=== PATIENT | female | born 1970 | race Caucasian/White ===

== ENCOUNTER → 2019-07-25 11:00 | Outpatient (BNVA) | payer OTHER, SELFPAY | PROVIDERS: Family Provider Family Medicine; PCP Family Medicine; Visit Provider Emergency Medicine | DX: J18.9 Pneumonia, unspecified organism (principal); M79.7 Fibromyalgia; E03.9 Hypothyroidism, unspecified; J45.909 Unspecified asthma, uncomplicated; L40.9 Psoriasis, unspecified; J45.21 Mild intermittent asthma with (acute) exacerbation; J06.9 Acute upper respiratory infection, unspecified | CPT/HCPCS: 87070; 87880 ==

== ENCOUNTER → 2019-10-14 16:18 | Outpatient (BNVA) | payer OTHER, SELFPAY | PROVIDERS: Family Provider Family Medicine; PCP Family Medicine; Visit Provider Family Medicine | DX: E03.9 Hypothyroidism, unspecified (principal); R31.9 Hematuria, unspecified; J30.9 Allergic rhinitis, unspecified; R31.21 Asymptomatic microscopic hematuria; J45.20 Mild intermittent asthma, uncomplicated; J30.2 Other seasonal allergic rhinitis; I10 Essential (primary) hypertension | CPT/HCPCS: 81001; 84439; 84443; 84481 ==

== ENCOUNTER → 2019-10-15 10:47 | Outpatient (BNVA) | payer OTHER, SELFPAY | PROVIDERS: Family Provider Family Medicine; PCP Family Medicine; Visit Provider Family Medicine | DX: E03.9 Hypothyroidism, unspecified (principal); R31.9 Hematuria, unspecified; J30.9 Allergic rhinitis, unspecified; R31.21 Asymptomatic microscopic hematuria; J45.20 Mild intermittent asthma, uncomplicated; J30.2 Other seasonal allergic rhinitis; I10 Essential (primary) hypertension | CPT/HCPCS: 80048 ==

== ENCOUNTER → 2019-10-24 16:05 | Outpatient (BNVA) | payer OTHER, SELFPAY | PROVIDERS: Family Provider Family Medicine; PCP Family Medicine; Visit Provider Counselor Professional | DX: F43.12 Post-traumatic stress disorder, chronic (principal); F33.1 Major depressive disorder, recurrent, moderate | CPT/HCPCS: 90834 ==

== ENCOUNTER → 2020-01-30 12:31 | Outpatient (BNVA) | payer OTHER, SELFPAY ==
[2019-08-08 10:48] VITALS: BP 173/106; BMI 45.3
== END ==
PROVIDERS: Family Provider Family Medicine; PCP Family Medicine; Visit Provider Anesthesiology
DX: M79.7 Fibromyalgia (principal); F17.210 Nicotine dependence, cigarettes, uncomplicated; Z79.891 Long term (current) use of opiate analgesic; Z71.6 Tobacco abuse counseling
CPT/HCPCS: 99214

== ENCOUNTER → 2020-04-23 12:31 | Outpatient (BNVA) | payer OTHER, SELFPAY ==
[2019-08-08 10:48] VITALS: BP 173/106; BMI 45.3
== END ==
PROVIDERS: Family Provider Family Medicine; PCP Family Medicine; Visit Provider Nurse Practitioner
DX: M79.7 Fibromyalgia (principal); F17.210 Nicotine dependence, cigarettes, uncomplicated; Z79.891 Long term (current) use of opiate analgesic; Z71.6 Tobacco abuse counseling
CPT/HCPCS: 99214

== ENCOUNTER → 2020-05-21 12:38 | Outpatient (BNVA) | payer OTHER, SELFPAY ==
[2019-08-08 10:48] VITALS: BP 173/106; BMI 45.3
== END ==
PROVIDERS: Family Provider Family Medicine; PCP Family Medicine; Visit Provider Anesthesiology
DX: M79.7 Fibromyalgia (principal); F17.210 Nicotine dependence, cigarettes, uncomplicated; Z79.891 Long term (current) use of opiate analgesic; Z71.6 Tobacco abuse counseling
CPT/HCPCS: 99214

== ENCOUNTER → 2020-07-07 15:09 | Outpatient (BNVA) | payer OTHER, SELFPAY ==
[2019-08-08 10:48] VITALS: BP 173/106; BMI 45.3
== END ==
PROVIDERS: Family Provider Family Medicine; PCP Family Medicine; Visit Provider Family Medicine
DX: E03.9 Hypothyroidism, unspecified (principal); R53.83 Other fatigue; I10 Essential (primary) hypertension; N64.4 Mastodynia
CPT/HCPCS: 80053; 80061; 82607; 82652; 84439; 84443; 84481; 85025

== ENCOUNTER 2020-08-17 14:02 | Outpatient (CLI) | payer OTHER, SELFPAY ==
[2019-08-08 10:48] VITALS: BP 173/106; BMI 45.3
--- NOTE | 2020-08-17 14:30 | MM_ITS ---
WS: [id number] BILATERAL DIGITAL DIAGNOSTIC MAMMOGRAM MAMMOGRAPHY WITH CAD CLINICAL INFORMATION: N64.4 - Mastodynia COMPARISON: September 14, 2016 TECHNIQUE: Bilateral CC, MLO, and ML views. FINDINGS: Scattered fibroglandular densities bilaterally. Focal asymmetric density in the right subareolar eyad on slightly more prominent compared to September 14, 2016. Ultrasound is pending. Left breast is unremarkable and unchanged. ULTRASOUND BREAST RIGHT TECHNIQUE: Ultrasound right breast focused area of concern. CLINICAL INFORMATION: N64.4 - Mastodynia COMPARISON: None. FINDINGS: Ultrasound right breast at the nipple. A few incidental dilated ducts. No visualized intraductal lesi on or suspicious lesions to target for biopsy. MM/[place] [id number] IMPRESSION: BI-RADS: 2-Benign FOLLOW UP: 1 Year Follow-up Recommend return to annual screening mammography.
--- NOTE | 2020-08-17 15:00 | US_ITS ---
WS: [id number] BILATERAL DIGITAL DIAGNOSTIC MAMMOGRAM MAMMOGRAPHY WITH CAD CLINICAL INFORMATION: N64.4 - Mastodynia COMPARISON: September 14, 2016 TECHNIQUE: Bilateral CC, MLO, and ML views. FINDINGS: Scattered fibroglandular densities bilaterally. Focal asymmetric density in the right subareolar eyad on slightly more prominent compared to September 14, 2016. Ultrasound is pending. Left breast is unremarkable and unchanged. ULTRASOUND BREAST RIGHT TECHNIQUE: Ultrasound right breast focused area of concern. CLINICAL INFORMATION: N64.4 - Mastodynia COMPARISON: None. FINDINGS: Ultrasound right breast at the nipple. A few incidental dilated ducts. No visualized intraductal lesi on or suspicious lesions to target for biopsy. US/US breast RT limited* [id number] IMPRESSION: BI-RADS: 2-Benign FOLLOW UP: 1 Year Follow-up Recommend return to annual screening mammography.
== END 2020-08-17 14:03 | disposition home or self-care (01) ==
LOC: RADSHAW 14:05
PROVIDERS: Family Provider Family Medicine; PCP Family Medicine; Visit Provider Family Medicine
DX: N64.4 Mastodynia (principal)
CPT/HCPCS: 76642; 77066

== ENCOUNTER → 2020-08-21 12:59 | Outpatient (BNVA) | payer OTHER, SELFPAY ==
[2019-08-08 10:48] VITALS: BP 173/106; BMI 45.3
== END ==
PROVIDERS: Family Provider Family Medicine; PCP Family Medicine; Visit Provider Anesthesiology
DX: M79.7 Fibromyalgia (principal); F17.210 Nicotine dependence, cigarettes, uncomplicated; Z71.6 Tobacco abuse counseling; Z79.891 Long term (current) use of opiate analgesic
CPT/HCPCS: 99213; 99214

== ENCOUNTER 2020-09-12 21:07 | Emergency (ER) | payer OTHER, SELFPAY ==
[2020-08-21 14:01] VITALS: BP 173/106; BMI 45.3
[2020-09-12 21:15] VITALS: BP 147/87; PULSE 95; RESP 18; TEMP 36.7; O2SAT 97; BMI 48.4
--- NOTE | 2020-09-12 21:20 | XRR_ITS ---
PROCEDURE INFORMATION: Exam: XR Chest, 1 View Exam date and time: 09/12/2020 9:57 PM Age: 50 years old Clinical indication: Chest pain; Additional info: Cp TECHNIQUE: Imaging protocol: XR of the chest Views: 1 view. COMPARISON: CT chest w con* [id number] 09/14/2016 12:26 PM FINDINGS: Lungs: Unremarkable. No consolidation. Pleural spaces: Unremarkable. No pleural effusion. No pneumothorax. Heart/Mediastinum: Unremarkable. No cardiomegaly. Bones/joints: Unremarkable. XR/XR chest 1V portable [id number] IMPRESSION: No acute findings.
[2020-09-12 21:45] LABS: Basophils # 0.1 10^3/uL (0.0-0.1); Basophils % 0.6 %; Eosinophils # 0.1 10^3/uL (0.0-0.8); Hematocrit 44.5 % (37.0-47.0); Hemoglobin 14.1 g/dL (11.5-15.3); Lymphocytes # 1.5 10^3/uL (0.8-4.8); Mean Corpuscular HGB Conc 31.7 g/dL (30.0-36.0); Mean Corpuscular Hemoglobin 29.3 pg (28.0-34.0); Mean Corpuscular Volume 92.3 fL (81-99); Mean Platelet Volume 10.9 fL (7.4-10.4); Monocytes # 0.4 10^3/uL (0.2-0.9); Monocytes % 4.4 %; Neutrophils # 6.28 10^3/uL (1.8-7.7); Neutrophils % 75.9 %; Nucleated Red Blood Cells % 0 %; Platelet Count 167 10^3/cmm (130-400); Red Blood Count 4.82 10^6/uL (4.1-5.3); Red Cell Distribution Width 12.4 % (12.1-15.1); White Blood Count 8.3 10^3/uL (4.0-10.0)
[2020-09-12 22:01] LABS: D Dimer 0.35 ug/mIFEU (0-0.59)
[2020-09-12 22:09] LABS: Troponin(5th) Baseline 6 ng/L (0-10)
[2020-09-12 22:18] LABS: Alanine Aminotransferase 13 U/L (0-33); Alkaline Phosphatase 91 IU/L (35-105); Aspartate Amino Transferase 14 U/L (0-32); Blood Urea Nitrogen 12 mg/dL (6-20); Calcium 8.4 mg/dL (8.5-10.5); Carbon Dioxide 26 mmol/L (22-29); Chloride 100 mmol/L (98-107); Globulin 3.3 g/dL (1.3-4.6); Glomerular Filtration Rate 75.3 mL/min (90-130); Glucose 122 mg/dL (65-115); NT Pro B Type Natriuretic Pept 33 pg/mL (0-125); Osmolality Calculated 287 mOsm/kg (285-295); Sodium 138 mmol/L (136-145); Total Bilirubin 0.2 mg/dL (0.15-1.2); Total Protein 7.3 g/dL (6.6-8.7)
[2020-09-12 22:19] LABS: Anion Gap 16.1 (5-19); Potassium 4.1 mmol/L (3.5-5.1)
[2020-09-12 22:38] VITALS: BP 143/93; PULSE 82; RESP 17; O2SAT 97
[2020-09-12 23:15] VITALS: BP 137/95; PULSE 81; RESP 17; O2SAT 97
--- NOTE | 2020-09-12 23:20 | ECG_ITS ---
[facility] [place] [facility] Date: 2020-09-12 Pat Name: Charlee Anderson Department: Room: Gender: Female Chief Inspector: : 1970 Requested By: Giancarlo Akhtar Order Number: [id number] Rossana MD: Annia Cohen M.D. Measurements Intervals Parker Rate: 77 P: 40 LA: 176 QRS: -6 QRSD: 93 T: 64 QT: 368 QTc: 416 Interpretive Statements SINUS RHYTHM LOW QRS VOLTAGE IN PRECORDIAL LEADS [QRS DEFLECTION < 1.0 mV IN CHEST LEADS] No previous ECG available for comparison Electronically Signed On 09-13-2020 18:40:06 YARDER OPERATOR by Annia Cohen M.D. [email or web address] ([email or web address] [email or web address] va medical centerCIVICOohiohealth dublin methodist hospitalViClone/store/OM/[id number]/[id number]
--- NOTE | 2020-09-12 23:34 | PC.NURSE ---
EKG done at 2330 and shown to ER doctor
[2020-09-13 00:05] VITALS: BP 141/111; PULSE 84; RESP 17; O2SAT 96
[2020-09-13 00:34] LABS: Troponin 5 2HR Delta 0 ABS# (0-10)
[2020-09-13] MEDS: ondansetron 2 mg/ML SDV 2 mL 4 MG IVP (01:26)
[2020-09-13 01:28] VITALS: BP 150/96; PULSE 88; RESP 15; O2SAT 97
[2020-09-13 01:29] VITALS: BP 158/95; PULSE 90; RESP 17; O2SAT 97
[2020-09-13 02:48] LABS: HIV 1 & 2 Antibody Non-Reactive (Non-Reactiv); HIV 1 & 2 Antigen Non-Reactive (Non-Reactiv)
[2020-09-13 03:00] LABS: Hepatitis A Antibody IgM Non-Reactive (Nonreactive); Hepatitis B Core AB, Total Non-Reactive (Nonreactive); Hepatitis B Surface AB 3.5 (0-8.5); Hepatitis B Surface Antigen Non-Reactive (Nonreactive); Hepatitis C Virus Antibody Non-Reactive (Nonreactive)
--- NOTE | 2020-09-13 03:38 | ED_ITS ---
HPI - Chest Pain General: Chief Complaint: Chest Pain Stated Complaint: CP Time Seen by Provider: 09/12/20 21:19 History of Present Illness: HPI narrative: 50-year-old female who states she has been under a lot of stress, presents with chest pain. She has had pain for several hours that did not go away. Does not seem to be worse with breathing. He states it is more of a butterfly feeling in her chest and pain. No nausea or vomiting. No fever or cough. No increased swelling. MD complaint: chest discomfort Onset (ago): hour(s) Timing of current episode: constant Onset: during rest Pain location: substernal Severity: moderate Quality: fullness and other Relieving factors: nothing Exacerbating factors: nothing Associated symptoms: Reports dyspnea and palpitations; Deny abdominal pain, fever(s), leg edema or vomiting Review of Systems Const: Denies: fever(s) Eyes: Denies: change in vision Card: Reports: chest pain, palpitations, lightheadedness and dyspnea on exertion Resp: Reports: dyspnea; Denies: productive cough, non-productive cough or wheezing GI: Denies: abdominal pain or vomiting Neuro: Denies: dizziness PFSH ED PFSH: Medical History Anxiety disorder Asthma, mild intermittent, well-controlled Encounter for long-term opiate analgesic use Fibromyalgia Hematuria Hypertension Hypothyroidism Hx allergy to all thyroid medication but has been through desensitization of levothyroxine. Major depressive disorder, recurrent, moderate Mild intermittent asthma with acute exacerbation Opioid contract exists Post-traumatic stress disorder, chronic Seasonal allergies Smoker Surgical History H/O thyroidectomy Family History Mother Cancer Family/Other Heart disease Social History Smoking and tobacco status: current every day smoker cigarettes [ Other cigarette details: 1 CIGS DAILY ] Alcohol intake: current Alcohol intake frequency: holidays/special occasions only Desire information about alcohol rehabilitation?: No History of recent travel: No Physical Exam Const: GENERAL APPEARANCE: well developed and anxious ORIENTATION/CONSCIOUSNESS: Yes oriented to person, Yes oriented to place and Yes oriented to time HENMT: COMMON NORMALS: normocephalic, external ears normal and Normal external nose present HEAD & SCALP: normocephalic FACE & SINUS: normal facial exam NOSE: Normal external nose present and No nasal discharge present EXTERNAL EAR: Yes external ears normal Eye: COMMON NORMALS: Equal, round and reactive pupils present, EOMs intact bilaterally and conjunctivae normal EYELID: eyelids normal CONJUNCTIVA: Yes conjunctivae normal PUPIL: Yes Equal, round and reactive pupils present Neck/C-Spine: GENERAL: No tracheal deviation Chest: COMMONS NORMALS: normal inspection of the chest CHEST: No tenderness Resp: COMMON NORMALS: clear to auscultation bilaterally EFFORT & INSPECTION: No tachypneic, No respiratory distress, No retractions, No uses accessory muscles and No tracheal deviation AUSCULTATION: clear to auscultation bilaterally, no rhonchi, no wheezes and lung sounds not diminished Cardio: COMMON NORMALS: regular rate and regular rhythm RATE: regular rate RHYTHM: regular rhythm HEART SOUNDS: no murmurs PERIPHERAL PULSES: radial pulses present GI: INSPECTION: No abdominal distension AUSCULTATION: No Hyperactive bowel sounds present and No Hypoactive bowel sounds present PALPATION: No Guarding due to palpation present (GI) and No Rigid due to palpation PERCUSSION: no dullness to percussion and no tympanic to percussion Neuro: SENSORIUM/ORIENTATION: Yes oriented to person, Yes oriented to place and Yes oriented to time Psych: COMMON NORMALS: mental status grossly normal Skin: COMMON NORMALS: no rashes or lesions noted GENERAL SKIN EXAM: no rashes or lesions noted Course Vital Signs: Vital signs: Vital Signs Temperature 98.1 F 09/12/20 21:15 Pulse Rate 90 09/13/20 01:29 Respiratory Rate 17 09/13/20 01:29 Blood Pressure 158/95 09/13/20 01:29 Pulse Oximetry 97 09/13/20 01:29 MDM - Chest Pain MDM Narrative: Medical decision making narrative: 50-year-old female, who is anxious on exam, presents with palpitations and chest discomfort. Is improved on exam. Her EKG shows a sinus rhythm with no ST changes. Her troponin is negative. Her hemoglobin is 14. White blood cell count 8.3. Her chest x-ray shows no acute findings. She was improved on exam. This may be anxiousness/anxiety. She is written a prescription for lorazepam to use as needed. She will follow-up with her physician. Lab Data: Labs: Lab Results 09/12/20 09/12/20 09/12/20 Range/Units 21:40 21:40 21:40 WBC 8.3 (4.0-10.0) 10^3/ uL RBC 4.82 (4.1-5.3) 10^6/u L Hgb 14.1 (11.5-15.3) g/dL Hct 44.5 (37.0-47.0) % MCV 92.3 (81-99) fL MCH 29.3 (28.0-34.0) pg MCHC 31.7 (30.0-36.0) g/dL RDW 12.4 (12.1-15.1) % Plt Count 167 (130-400) 10^3/c mm MPV 10.9 H (7.4-10.4) fL Neut % (Auto) 75.9 % Lymph % (Auto) 18.0 % [place] % (Auto) 4.4 % Eos % (Auto) 1.0 % Baso % (Auto) 0.6 % Neut # (Auto) 6.28 (1.8-7.7) 10^3/u L Lymph # (Auto) 1.5 (0.8-4.8) 10^3/u L [place] # (Auto) 0.4 (0.2-0.9) 10^3/u L Eos # (Auto) 0.1 (0.0-0.8) 10^3/u L Baso # (Auto) 0.1 (0.0-0.1) 10^3/u L Nucleated RBC % (a uto) 0 % Nucleated RBCs # 0.0 /100WBC D-Dimer 0.35 (0-0.59) ug/mIFE U Sodium 138 (136-145) mmol/L Potassium 4.1 (3.5-5.1) mmol/L Chloride 100 (98-107) mmol/L Carbon Dioxide 26 (22-29) mmol/L Anion Gap 16.1 (5-19) BUN 12 (6-20) mg/dL Creatinine 0.8 (0.5-0.9) mg/dL GFR Calculation 75.3 L (90-130) mL/min Glucose 122 H (65-115) mg/dL Calculated Osmolal ity 287 (285-295) mOsm/k g Calcium 8.4 L (8.5-10.5) mg/dL Total Bilirubin 0.2 (0.15-1.2) mg/dL AST 14 (0-32) U/L ALT 13 (0-33) U/L Alkaline Phosphata se 91 (35-105) IU/L Troponin T Baselin e (0-10) ng/L Troponin T 120 Min ak chin (0-10) ng/L Delta Troponin T (0-10) ABS# NT-Pro-B Natriuret Pep 33 (0-125) pg/mL Total Protein 7.3 (6.6-8.7) g/dL Albumin 4.0 (3.5-5.2) g/dL Globulin 3.3 (1.3-4.6) g/dL Hepatitis A IgM Ab (Nonreactive) Hep Bs Antigen (Nonreactive) Hep Bs Antibody (0-8.5) Hep B Core Total A b (Nonreactive) Hepatitis C Antibo dy (Nonreactive) HIV 1&2 Ab & HIV 1 Ag (Non-Reactiv) HIV 1&2 Antibody (Non-Reactiv) 09/12/20 09/12/20 09/13/20 Range/Units 21:40 23:40 01:54 WBC (4.0-10.0) 10^3/ uL RBC (4.1-5.3) 10^6/u L Hgb (11.5-15.3) g/dL Hct (37.0-47.0) % MCV (81-99) fL MCH (28.0-34.0) pg MCHC (30.0-36.0) g/dL RDW (12.1-15.1) % Plt Count (130-400) 10^3/c mm MPV (7.4-10.4) fL Neut % (Auto) % Lymph % (Auto) % [place] % (Auto) % Eos % (Auto) % Baso % (Auto) % Neut # (Auto) (1.8-7.7) 10^3/u L Lymph # (Auto) (0.8-4.8) 10^3/u L [place] # (Auto) (0.2-0.9) 10^3/u L Eos # (Auto) (0.0-0.8) 10^3/u L Baso # (Auto) (0.0-0.1) 10^3/u L Nucleated RBC % (a uto) % Nucleated RBCs # /100WBC D-Dimer (0-0.59) ug/mIFE U Sodium (136-145) mmol/L Potassium (3.5-5.1) mmol/L Chloride (98-107) mmol/L Carbon Dioxide (22-29) mmol/L Anion Gap (5-19) BUN (6-20) mg/dL Creatinine (0.5-0.9) mg/dL GFR Calculation (90-130) mL/min Glucose (65-115) mg/dL Calculated Osmolal ity (285-295) mOsm/k g Calcium (8.5-10.5) mg/dL Total Bilirubin (0.15-1.2) mg/dL AST (0-32) U/L ALT (0-33) U/L Alkaline Phosphata se (35-105) IU/L Troponin T Baselin e 6 (0-10) ng/L Troponin T 120 Min ak chin 6.00 (0-10) ng/L Delta Troponin T 0 (0-10) ABS# NT-Pro-B Natriuret Pep (0-125) pg/mL Total Protein (6.6-8.7) g/dL Albumin (3.5-5.2) g/dL Globulin (1.3-4.6) g/dL Hepatitis A IgM Ab Non-reactive (Nonreactive) Hep Bs Antigen Non-reactive (Nonreactive) Hep Bs Antibody 3.5 (0-8.5) Hep B Core Total A b Non-reactive (Nonreactive) Hepatitis C Antibo dy Non-reactive (Nonreactive) HIV 1&2 Ab & HIV 1 Ag (Non-Reactiv) HIV 1&2 Antibody (Non-Reactiv) 09/13/20 Range/Units 01:54 WBC (4.0-10.0) 10^3/ uL RBC (4.1-5.3) 10^6/u L Hgb (11.5-15.3) g/dL Hct (37.0-47.0) % MCV (81-99) fL MCH (28.0-34.0) pg MCHC (30.0-36.0) g/dL RDW (12.1-15.1) % Plt Count (130-400) 10^3/c mm MPV (7.4-10.4) fL Neut % (Auto) % Lymph % (Auto) % [place] % (Auto) % Eos % (Auto) % Baso % (Auto) % Neut # (Auto) (1.8-7.7) 10^3/u L Lymph # (Auto) (0.8-4.8) 10^3/u L [place] # (Auto) (0.2-0.9) 10^3/u L Eos # (Auto) (0.0-0.8) 10^3/u L Baso # (Auto) (0.0-0.1) 10^3/u L Nucleated RBC % (a uto) % Nucleated RBCs # /100WBC D-Dimer (0-0.59) ug/mIFE U Sodium (136-145) mmol/L Potassium (3.5-5.1) mmol/L Chloride (98-107) mmol/L Carbon Dioxide (22-29) mmol/L Anion Gap (5-19) BUN (6-20) mg/dL Creatinine (0.5-0.9) mg/dL GFR Calculation (90-130) mL/min Glucose (65-115) mg/dL Calculated Osmolal ity (285-295) mOsm/k g Calcium (8.5-10.5) mg/dL Total Bilirubin (0.15-1.2) mg/dL AST (0-32) U/L ALT (0-33) U/L Alkaline Phosphata se (35-105) IU/L Troponin T Baselin e (0-10) ng/L Troponin T 120 Min ak chin (0-10) ng/L Delta Troponin T (0-10) ABS# NT-Pro-B Natriuret Pep (0-125) pg/mL Total Protein (6.6-8.7) g/dL Albumin (3.5-5.2) g/dL Globulin (1.3-4.6) g/dL Hepatitis A IgM Ab (Nonreactive) Hep Bs Antigen (Nonreactive) Hep Bs Antibody (0-8.5) Hep B Core Total A b (Nonreactive) Hepatitis C Antibo dy (Nonreactive) HIV 1&2 Ab & HIV 1 Ag Non-reactive (Non-Reactiv) HIV 1&2 Antibody Non-reactive (Non-Reactiv) Discharge Plan Discharge Patient Disposition: Home Clinical Impression: Chest pain Qualifiers: Chest pain type: unspecified Qualified Code(s): R07.9 - Chest pain, unspecified Condition: Stable Prescriptions: New lorazepam 1 mg tablet 0.5 mg sublingual BID PRN (Reason: anxiety) Qty: 10 RF: 0 No Action albuterol sulfate 2.5 mg /3 mL (0.083 %) solution for nebulization 2.5 mg INHALATION Q4H PRNRF: 0 acetaminophen [Tylenol Extra Strength] 500 mg tablet 1,500 mg PO .COMPLEX PRNRF: 0 albuterol sulfate 90 mcg/actuation HFA aerosol inhaler 2 puff INHALATION Q6H PRN (Reason: shortness of breath or wheezing) Qty: 8.5 RF: 0 duloxetine [Cymbalta] 60 mg capsule,delayed release(DR/EC) 60 mg PO DAILY Qty: 30 RF: 2 hydroxyzine pamoate 25 mg capsule 25 mg PO TID PRN (Reason: itching or anxiety) Qty: 90 RF: 0 albuterol sulfate [Ventolin HFA] 90 mcg/actuation HFA aerosol inhaler See Rx Instructions INHALATION .COMPLEX 30 Days Qty: 18 RF: 5 tramadol 50 mg tablet 100 mg PO QID PRN (Reason: pain) 30 Days Qty: 240 RF: 2 gabapentin 800 mg tablet 800 mg PO TID Qty: 90 RF: 2 triamcinolone acetonide 0.1 % cream 1 applic topical BID Qty: 28.4 RF: 0 ketotifen fumarate 0.025 % (0.035 %) drops 1 drp ophthalmic (eye) BID PRN (Reason: allergy symptoms) Qty: 5 RF: 0 levothyroxine [Euthyrox] 175 mcg tablet 175 mcg PO DAILY 90 Days Qty: 90 RF: 3 lamotrigine [Lamictal] 150 mg tablet 150 mg PO DAILY Qty: 30 RF: 3 Discharge Orders: Discharge ED (Routine); Ordered 09/13/20 Ordered By: Giancarlo Mae Referrals: Corazon Cardona MD [Primary Care Provider] - 4-7 days Patient Instructions: Chest Pain (ED), Anxiety (ED) Activity Restrictions/Additional Instructions: Return for repeated episodes of chest discomfort, fever, cough, shortness of breath, other concerning symptoms Coding Level of Care Code ED Twisting Press Operator for Michelle Parikh
== END 2020-09-13 01:54 | disposition home or self-care (01) ==
PROVIDERS: Emergency Provider Emergency Medicine; PCP Family Medicine
DX: R07.9 Chest pain, unspecified (principal); I10 Essential (primary) hypertension; F17.210 Nicotine dependence, cigarettes, uncomplicated
CPT/HCPCS: 71045; 80053; 83880; 84484; 85025; 85378; 86705; 86706; 86709; 86803; 87340; 87806; 93005; 96374; 99284; J2405

== ENCOUNTER → 2020-09-23 17:23 | Outpatient (BNVA) | payer OTHER, SELFPAY ==
[2020-08-21 14:01] VITALS: BP 173/106; BMI 45.3
== END ==
PROVIDERS: PCP Family Medicine; Visit Provider Family Medicine
DX: I10 Essential (primary) hypertension (principal); E03.9 Hypothyroidism, unspecified; G47.33 Obstructive sleep apnea (adult) (pediatric); E66.01 Morbid (severe) obesity due to excess calories; Z68.43 Body mass index [BMI] 50.0-59.9, adult; F17.200 Nicotine dependence, unspecified, uncomplicated
CPT/HCPCS: 80053; 80061; 84439; 84443; 84481

== ENCOUNTER 2020-10-12 20:00 | Outpatient (CLI) | payer OTHER, SELFPAY ==
[2020-08-21 14:01] VITALS: BP 173/106; BMI 45.3
== END 2020-10-12 20:01 | disposition home or self-care (01) ==
LOC: SLEEP 10-13 08:33
PROVIDERS: PCP Family Medicine; Visit Provider Family Medicine
DX: G47.33 Obstructive sleep apnea (adult) (pediatric) (principal)
CPT/HCPCS: 95811

== ENCOUNTER → 2020-11-20 09:32 | Outpatient (BNVA) | payer OTHER, SELFPAY ==
[2020-08-21 14:01] VITALS: BP 173/106; BMI 45.3
== END ==
PROVIDERS: PCP Family Medicine; Visit Provider Anesthesiology
DX: M79.7 Fibromyalgia (principal); Z79.891 Long term (current) use of opiate analgesic
CPT/HCPCS: 99213

== ENCOUNTER 2020-11-25 20:00 | Outpatient (CLI) | payer OTHER, SELFPAY ==
[2020-08-21 14:01] VITALS: BP 173/106; BMI 45.3
== END 2020-11-25 20:01 | disposition home or self-care (01) ==
LOC: SLEEP 11-26 09:40
PROVIDERS: PCP Family Medicine; Visit Provider Family Medicine
DX: G47.33 Obstructive sleep apnea (adult) (pediatric) (principal)
CPT/HCPCS: 95811

== ENCOUNTER → 2021-02-24 12:52 | Outpatient (BNVA) | payer OTHER, SELFPAY ==
[2020-08-21 14:01] VITALS: BP 173/106; BMI 45.3
== END ==
PROVIDERS: PCP Family Medicine; Visit Provider Nurse Practitioner
DX: G89.29 Other chronic pain (principal); M79.7 Fibromyalgia; M54.5 Low back pain; M54.2 Cervicalgia; M25.50 Pain in unspecified joint; F17.210 Nicotine dependence, cigarettes, uncomplicated; Z79.891 Long term (current) use of opiate analgesic
CPT/HCPCS: 99213; 99214

== ENCOUNTER 2021-02-24 13:50 | Outpatient (CLI) | payer OTHER, SELFPAY ==
[2021-02-24 13:13] VITALS: BP 173/106; BMI 45.3
--- NOTE | 2021-02-24 14:00 | XR_ITS ---
WS: [id number] Lumbar spine, 3 views, 02/24/2021 Clinical Data: M54.5 - Low back pain Comparison: None. Findings: No compression fractures or subluxation is seen. No disc space narrowing is seen. The transverse proc esses and SI joints are normal. There is minimal anterior osteophyte formation from L2 through L5. XR/XR lumbar spine 2-3V* [id number] Impression: Osteophytes from L2 through L5.
--- NOTE | 2021-02-24 14:00 | XR_ITS ---
WS: [id number] Cervical spine, 3 views, 02/24/2021 Clinical Data: M54.2 - Cervicalgia Comparison: None. Findings: No compression fractures are seen. There is degenerative disc narrowing at C4-C5 and C5-C6 with accompanying anterior osteophyte formation. There is loss of the normal lordotic curvature.. The re is no prevertebral soft tissue swelling. The odontoid is unremarkable. The soft tissues of the nec k and the lung apices are normal. There are clips in the anterior neck from probable thyroid surgery. XR/XR cervical spine 3V* [id number] Impression: Degenerative disc narrowing at C4-C5 and T5-C6 with accompanying anterior osteo phytes.
== END 2021-02-24 13:51 | disposition home or self-care (01) ==
LOC: RAD 13:57
PROVIDERS: PCP Family Medicine; Visit Provider Family Medicine
DX: M54.5 Low back pain (principal); M54.2 Cervicalgia; G89.29 Other chronic pain; M25.78 Osteophyte, vertebrae
CPT/HCPCS: 72040; 72100

== ENCOUNTER → 2021-03-17 15:51 | Outpatient (BNVA) | payer OTHER, SELFPAY ==
[2021-02-24 13:13] VITALS: BP 173/106; BMI 45.3
== END ==
PROVIDERS: PCP Family Medicine; Visit Provider Family Medicine
DX: E03.9 Hypothyroidism, unspecified (principal); K21.9 Gastro-esophageal reflux disease without esophagitis; I10 Essential (primary) hypertension; M54.2 Cervicalgia; G89.29 Other chronic pain; J45.20 Mild intermittent asthma, uncomplicated; F17.200 Nicotine dependence, unspecified, uncomplicated
CPT/HCPCS: 80048; 84439; 84443; 84481

== ENCOUNTER → 2021-05-20 14:05 | Outpatient (BNVA) | payer OTHER, SELFPAY | PROVIDERS: PCP Family Medicine; Visit Provider Anesthesiology | DX: G89.29 Other chronic pain (principal); M79.7 Fibromyalgia; M54.50 Low back pain, unspecified; M54.2 Cervicalgia; M79.604 Pain in right leg; M79.605 Pain in left leg; M79.601 Pain in right arm; M79.602 Pain in left arm; F17.200 Nicotine dependence, unspecified, uncomplicated; Z71.6 Tobacco abuse counseling; Z79.891 Long term (current) use of opiate analgesic | CPT/HCPCS: 99214 ==

== ENCOUNTER → 2021-07-13 14:19 | Outpatient (BNVA) | payer OTHER, SELFPAY ==
[2021-05-20 15:19] VITALS: BP 173/106; BMI 45.3
== END ==
PROVIDERS: PCP Family Medicine; Visit Provider Family Medicine
DX: M17.0 Bilateral primary osteoarthritis of knee (principal); N39.41 Urge incontinence; E03.9 Hypothyroidism, unspecified; I10 Essential (primary) hypertension; Z13.220 Encounter for screening for lipoid disorders; Z13.6 Encounter for screening for cardiovascular disorders; Z13.1 Encounter for screening for diabetes mellitus; R73.9 Hyperglycemia, unspecified
CPT/HCPCS: 73562; 80048; 80061; 81000; 83036; 84439; 84443; 84481

== ENCOUNTER 2021-08-24 06:00 | Outpatient (RCR) | payer OTHER, SELFPAY ==
[2021-05-20 15:19] VITALS: BP 173/106; BMI 45.3
== END 2021-09-20 23:59 | disposition home or self-care (01) ==
LOC: MPT 06:00
PROVIDERS: PCP Family Medicine; Referring Provider Family Medicine; Visit Provider Family Medicine
DX: N39.41 Urge incontinence (principal)
CPT/HCPCS: 97110; 97140; 97161; 97530

== ENCOUNTER → 2021-09-02 13:55 | Outpatient (BNVA) | payer OTHER, SELFPAY ==
[2021-05-20 15:19] VITALS: BP 173/106; BMI 45.3
== END ==
PROVIDERS: PCP Family Medicine; Visit Provider Anesthesiology
DX: G89.29 Other chronic pain (principal); M54.50 Low back pain, unspecified; M79.7 Fibromyalgia; M54.2 Cervicalgia; M17.0 Bilateral primary osteoarthritis of knee; F17.210 Nicotine dependence, cigarettes, uncomplicated; Z79.891 Long term (current) use of opiate analgesic
CPT/HCPCS: 99214

== ENCOUNTER 2021-09-21 06:00 | Outpatient (RCR) | payer OTHER, SELFPAY ==
[2021-05-20 15:19] VITALS: BP 173/106; BMI 45.3
== END 2021-10-21 23:59 | disposition home or self-care (01) ==
LOC: MPT 06:00
PROVIDERS: PCP Family Medicine; Referring Provider Family Medicine; Visit Provider Family Medicine
DX: N39.41 Urge incontinence (principal)
CPT/HCPCS: 97110; 97140; 97530

== ENCOUNTER → 2021-12-06 15:37 | Outpatient (BNVA) | payer OTHER, SELFPAY ==
[2021-05-20 15:19] VITALS: BP 173/106; BMI 45.3
== END ==
PROVIDERS: PCP Family Medicine; Visit Provider Family Medicine
DX: I10 Essential (primary) hypertension (principal); E03.9 Hypothyroidism, unspecified; E11.9 Type 2 diabetes mellitus without complications; J45.20 Mild intermittent asthma, uncomplicated; F33.1 Major depressive disorder, recurrent, moderate; J45.21 Mild intermittent asthma with (acute) exacerbation; G89.29 Other chronic pain; Z79.891 Long term (current) use of opiate analgesic; K21.9 Gastro-esophageal reflux disease without esophagitis
CPT/HCPCS: 80053; 83036; 84443; 85025

== ENCOUNTER → 2022-01-11 15:52 | Outpatient (BNVA) | payer OTHER, SELFPAY ==
[2021-05-20 15:19] VITALS: BP 173/106; BMI 45.3
== END ==
PROVIDERS: PCP Family Medicine; Visit Provider Family Medicine
DX: Z12.4 Encounter for screening for malignant neoplasm of cervix (principal); Z68.43 Body mass index [BMI] 50.0-59.9, adult; Z12.31 Encounter for screening mammogram for malignant neoplasm of breast
CPT/HCPCS: 87624

== ENCOUNTER 2022-02-24 13:12 | Outpatient (CLI) | payer OTHER, MEDICARE, SELFPAY ==
[2021-05-20 15:19] VITALS: BP 173/106; BMI 45.3
--- NOTE | 2022-02-24 13:24 | CT_ITS ---
WS: [id number] CT LUMBAR SPINE, noncontrast. HISTORY: VERTEBROGENIC LOW BACK PAIN TECHNIQUE: Contiguous 2.5 mm axial imaging are performed. Sagittal and coronal reformats are submitte d and reviewed. All CT scans at [facility] use at least one of these dose optimization techni ques: automated exposure control; mA and/or kV adjustment per patient size (includes targeted exams w here dose is matched to clinical indication); or iterative reconstruction. IV contrast: None DLP: 1837.40 mGy.cm COMPARISON: None available. Normal lumbar alignment with no loss of disc space height or vertebral body height. L1-2: Normal. L2-3: Shallow LEFT foraminal disc protrusion with no stenosis. L3-4: Normal. L4-5: Mild facet joint arthritis. No stenosis. Osteophyte from the RIGHT superior articular facet enc roaches into the RIGHT lateral thecal sac. L5-S1: Mild facet arthritis. Small amount of air in the SI joints. 7.8 mm calcification in the RIGHT abdomen. This appears to be associated with the RIGHT ureter and ca using a mild RIGHT renal obstruction. The entire kidney and ureter are not included on this examinati on. CT/CT lumbar spine wo con* [id number] IMPRESSION: 1. No significant central or foraminal stenosis. 2. 7.8 mm calcification within the RIGHT abdomen. This is probably within the proximal RIGHT ureter. Incomplete visualization of the kidney and ureter. Recom mend noncontrast follow-up CT abdomen and pelvis evaluation.
== END 2022-02-24 13:13 | disposition home or self-care (01) ==
LOC: RAD 13:14
PROVIDERS: PCP Family Medicine; Visit Provider Nurse Practitioner
DX: M54.51 Vertebrogenic low back pain (principal)
CPT/HCPCS: 72131

== ENCOUNTER 2022-02-28 14:33 | Outpatient (CLI) | payer OTHER, MEDICARE, MEDICAID, SELFPAY ==
[2021-05-20 15:19] VITALS: BP 173/106; BMI 45.3
--- NOTE | 2022-02-28 14:40 | MM_ITS ---
WS: [id number] BILATERAL 3D TOMOSYNTHESIS DIGITAL SCREENING MAMMOGRAPHY WITH CAD CLINICAL INFORMATION: Z12.39 - Encounter for other screening for malignant neop... HISTORY: Screening mammogram. Bilateral breast soreness COMPARISON: August 17, 2020 TECHNIQUE: Bilateral CC and MLO views. FINDINGS: Scattered fibroglandular densities bilaterally. No suspicious focal mass, asymmetry, calcifications, or architectural distortion. No evidence of malignancy. MM/[place] [id number] IMPRESSION: BI-RADS: 1-Negative FOLLOW UP: 1 Year Follow-up Recommend return to annual screening mammography.
== END 2022-02-28 14:34 | disposition home or self-care (01) ==
PROVIDERS: PCP Family Medicine; Visit Provider Family Medicine
DX: Z12.31 Encounter for screening mammogram for malignant neoplasm of breast (principal)
CPT/HCPCS: 77063; 77067

== ENCOUNTER → 2022-03-16 14:41 | Outpatient (BNVA) | payer OTHER, MEDICARE, SELFPAY ==
[2021-05-20 15:19] VITALS: BP 173/106; BMI 45.3
== END ==
PROVIDERS: PCP Family Medicine; Visit Provider Family Medicine
DX: M79.7 Fibromyalgia (principal); N20.0 Calculus of kidney; Z87.19 Personal history of other diseases of the digestive system; G89.29 Other chronic pain
CPT/HCPCS: 81000

== ENCOUNTER 2022-04-06 14:52 | Outpatient (CLI) | payer MEDICARE, MEDICAID, OTHER, SELFPAY ==
[2021-05-20 15:19] VITALS: BP 173/106; BMI 45.3
--- NOTE | 2022-04-06 15:02 | CT_ITS ---
WS: [id number] CT ABDOMEN PELVIS TECHNIQUE: Noncontrast CT of the abdomen and pelvis with coronal and sagittal reformatted images. CLINICAL INFORMATION: N20.0 - Calculus of kidney COMPARISON: None. DLP: 1260.[address] scans at [facility] use at least one of these dose optimization techniques: automated e xposure control; mA and/or kV adjustment per patient size (includes targeted exams where dose is matc hed to clinical indication); or iterative reconstruction. FINDINGS: Adrenal glands are normal. Obstructing calculus in the RIGHT proximal one third ureter yovani uring 4 mm. No significant hydronephrosis in the RIGHT kidney. No significant inflammatory stranding. Minimal dilatation renal pelvis. Distal RIGHT ureter is decompressed. No obstructing LEFT renal or ureteral calculi. A few pelvic phleboliths. Normal caliber abdominal aor ta. Fat-containing umbilical hernia. No evidence of high-grade small or large bowel obstruction. Norm al appendix in the RIGHT lower quadrant. No periaortic or pelvic lymphadenopathy. No inguinal lymphadenopathy. Large calcified gallbladder giselle culi. No gallbladder wall thickening or pericholecystic fluid. Largest calculus measures 2.2 CM. Hepa tomegaly. No intrahepatic biliary duct dilatation. Atrophic pancreas. Mild splenomegaly. Small esopha geal hiatal hernia. Lung bases are well aerated. Slight patchy opacity LEFT lower lobe may represent small amount of pneumonitis or fibrosis. LEFT ovarian cyst measuring 2.[address]/CT kidney stone [id number] IMPRESSION: 1. 4 mm calculus in the RIGHT proximal one third ureter. Recommend correlation for RIGHT flank pain. No significant hydronephrosis or perinephric stranding. Minimal dilatation RIGHT renal pelvis. 2. No obstructing LEFT renal or ureteral calculi. 3. Large gallbladder calculi. No gallbladder wall thickening or pericholecysti c fluid. 4. Tiny amount of fibrosis or slight infiltrate in the LEFT lower lobe posteri dennis. 5. Fat-containing umbilical hernia. 6. No other acute findings.
== END 2022-04-06 14:53 | disposition home or self-care (01) ==
PROVIDERS: PCP Family Medicine; Visit Provider Family Medicine
DX: N20.0 Calculus of kidney (principal)
CPT/HCPCS: 74176

== ENCOUNTER 2022-04-07 14:49 | Outpatient (CLI) | payer MEDICARE, MEDICAID, OTHER, SELFPAY ==
[2021-05-20 15:19] VITALS: BP 173/106; BMI 45.3
--- NOTE | 2022-04-07 14:54 | XR_ITS ---
WS: [id number] XR KUB [id number] REASON FOR EXAM: Kidney Stone FINDINGS: On the previous examination of 04/10/2019 there was a calculus within the right kidney. Currently no c alculus is identified in the right kidney. A calculus is identified overlying the right transverse pr ocess of L4. No other urinary tract calculi are identified. No other significant abnormality of the abdomen is identified. XR/XR KUB [id number] IMPRESSION: Presumed migration, of unknown chronicity, of a right intrarenal calculus to th e mid right ureter.
== END 2022-04-07 14:50 | disposition home or self-care (01) ==
LOC: RAD 14:50
PROVIDERS: PCP Family Medicine; Visit Provider Urology
DX: N20.1 Calculus of ureter (principal); F41.8 Other specified anxiety disorders; E66.01 Morbid (severe) obesity due to excess calories; I10 Essential (primary) hypertension; Z68.43 Body mass index [BMI] 50.0-59.9, adult
CPT/HCPCS: 74018; 99205

== ENCOUNTER 2022-04-13 05:42 | Day surgery (SDC) | payer MEDICARE, OTHER, SELFPAY ==
[2021-05-20 15:19] VITALS: BP 173/106; BMI 45.3
--- NOTE | 2022-04-12 13:21 | ANES.PREANE2 ---
Pre-Anesthetic Assessment Height/Weight: Height 1.7 m Weight 153.768 kg Preop Diagnosis: renal calculus Operation Date: 04/13/22 07:00 Proposed Procedures p CYSTOSCOPY RIGHT RETROGRADE URETEROSCOPY LASER STENT 34822 [id number] MODIFIER 26,N20.0(Not Applicable) - Shawn Hylton MD s Retrograde Pyelogram(Right) - MD latia Beard Ureteroscopy(Right) - MD latia Beard Laser Lithotripsy(Right) - MD latia Beard Ureteral Stent Placement(Right) - Shawn Hylton MD Familial anesthetic complications: PONV Was Beta Kelli taken within 24 hours: Yes Was Clonidine taken within 24 hours: N/A Social Tobacco and No alcohol Exam alert, oriented x 3, clear to auscultation bilaterally and regular rate & rhythm Airway Submandibular: within normal limits Cervical ROM: within normal limits Mallampati: Class II Dentition: full Pulmonary Asthma and Sleep Apnea (Not treated ) CV/HEM None reported Renal calculus Hepatic None reported GI Gastroesophageal Reflux Disease (Very poorly controlled ) Metabolic Morbid Obesity [facility] None reported Neuropsych None reported Anesthetic Plan ASA status: 3 Anesthesia: Anesthesia Evaluation and General Other: We discussed risk and benefits of general anesthesia including PONV, sore throat (sometimes severe), corneal abrasion, positioning and peripheral nerve injuries, life threatening allergic reaction, post operative ICU admission requiring prolonged intubation, aspiration, stroke, heart attack, , and rare incidences of recall. Patient consents to proceed with general anesthesia. Plan RSI, GETa Risk of > 500 ml blood loss (7ml/kg in children): No Medications/Allergies Home Medications Medication Instructions Recorded Confirmed Last Taken Type albuterol sulfate 2.5 mg inhalation Q4H PRN 07/25/19 04/12/22 Unknown History Shortness Of Breath levothyroxine 175 mcg tablet 175 mcg PO DAILY 90 days #90 tabs 12/06/21 04/12/22 Unknown Rx (Euthyrox) metoprolol succinate 100 mg 100 mg PO DAILY 90 days #90 tabs 12/06/21 04/12/22 Unknown Rx tablet,extended release 24 hr omeprazole 40 mg capsule,delayed 40 mg PO DAILY 90 days #90 caps 12/06/21 04/12/22 Unknown Rx release duloxetine 60 mg capsule,delayed 60 mg PO DAILY #30 caps 01/27/22 04/12/22 Unknown Rx release (Cymbalta) gabapentin 800 mg tablet 800 mg PO TID 30 days #90 tabs 03/16/22 04/12/22 Unknown Rx hydrocodone 7.5 mg-acetaminophen 2 tab PO Q6H PRN Pain 03/16/22 04/12/22 Unknown History 325 mg tablet albuterol sulfate 90 mcg/actuation 90 mcg inhalation DAILY 04/12/22 04/12/22 Unknown History aerosol inhaler (Ventolin HFA) nicotine 21 mg/24 hr daily 1 patch transdermal DAILY #28 ea 04/12/22 Unknown Rx transdermal patch risperidone 1 mg tablet (Risperdal) 1 mg PO BID 04/12/22 04/12/22 Unknown History Allergies Allergy/AdvReac Type Severity Reaction Status Date / Time trazodone Allergy Intermediate ALGY-Difficulty Verified 04/04/22 15:12 Swallowing levothyroxine Allergy she takes Verified 04/04/22 15:12 this daily but will cause a rash/itching morphine AdvReac nausea, Verified 04/04/22 15:12 vomiting PFSH Anesthesia Medical History Anxiety disorder Asthma, mild intermittent, well-controlled Encounter for long-term opiate analgesic use Encounter for tobacco use cessation counseling Fibromyalgia Hematuria Hypertension Hypothyroidism Hx allergy to all thyroid medication but has been through desensitization of levothyroxine. Major depressive disorder, recurrent, moderate Mild intermittent asthma with acute exacerbation Opioid contract exists Post-traumatic stress disorder, chronic Psychiatric care Seasonal allergies Smoker Surgical History H/O thyroidectomy Family History Mother Cancer Family/Other Heart disease Social History Smoking and tobacco status: current every day smoker cigarettes Packs smoked per day: 0.5 Alcohol intake: never Desire information about alcohol rehabilitation?: No Marital status: / Current occupational status: disabled History of recent travel: No Female Reproductive History Spontaneous abortions: No Data Anesthesia Cardiac Studies: No Data to Display
--- NOTE | 2022-04-12 13:27 | ECG_ITS ---
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 Measurements Intervals Harrison Rate: 67 P: 28 MT: 188 QRS: 0 QRSD: 99 T: 38 QT: 373 QTc: 396 Interpretive Statements SINUS RHYTHM WITH SINUS ARRHYTHMIA LOW QRS VOLTAGE IN PRECORDIAL LEADS [QRS DEFLECTION < 1.0 mV IN CHEST LEADS] ST DEVIATION AND MODERATE T-WAVE ABNORMALITY, CONSIDER ANTERIOR ISCHEMIA [-0.1+ mV T-WAVE IN V3/V4] Compared to ECG 09/12/2020 23:30:17 T-wave abnormality now present Possible ischemia now present Electronically Signed On 04-12-2022 20:49:04 CDT by Melodie Loza M.D. [id number]
[2022-04-13] VITALS (7 sets, daily range): BP systolic 106–135; BP diastolic 71–92; PULSE 56–71; RESP 14–22; TEMP 36.1–36.3; O2SAT 92–97
--- NOTE | 2022-04-13 | SCC_ITS ---
Procedure done: 1. Cystoscopy, RIGHT retrograde ureteropyelogram 2. Right ureteroscopy, laser lithotripsy, stent 107.4 seconds of fluoroscopic guidance, for a cumulative dose of 82.7 mGy, was provided to Dr. Hylton by the radiology department. C-arm images of the abdomen were saved for the patient's permanent record. [facility]
--- NOTE | 2022-04-13 04:20 | W.PM.OPSUD ---
Surgery/Procedure H&P Update DATE OF PROCEDURE: April 13, 2022 DATE H&P PERFORMED: 04/07/22 H&P UPDATE INFORMATION: I have reviewed H&P completed within last 30 days (Reviewed her films again.), I have examined patient prior to procedure, No changes to prior documentation and H&P is in [facility] [place] EMR on date indicated PREOP DIAGNOSIS: renal calculus PRIMARY INDICATION FOR PROCEDURE: Discussed again the possibility of severe inflammatory changes around the stone which may make it difficult to access the stone or even access the upper tract above the stone. Staged procedure, antegrade approach via interventional radiology all reviewed again with her and her family. PLANNED PROCEDURE: Operation Date: 04/13/22 07:00 Proposed Procedures p CYSTOSCOPY RIGHT RETROGRADE URETEROSCOPY LASER STENT [id number] MODIFIER 26,N20.0(Not Applicable) - Shawn Hylton MD s Retrograde Pyelogram(Right) - MD latia Beard Ureteroscopy(Right) - MD latia Beard Laser Lithotripsy(Right) - Shawn Hylton MD s Ureteral Stent Placement(Right) - Shawn Hylton MD
--- NOTE | 2022-04-13 05:52 | SC_ITS ---
WS: [id number] INTRAOPERATIVE TECHNIQUE: 7 Spot fluoroscopic images for intraoperative purposes. FLUOROSCOPY TIME: 107.4 seconds CLINICAL INFORMATION: Right proximal ureteral stone, ureteroscopy COMPARISON: CT April 06, 2022 FINDINGS: RIGHT ureteroscopy with contrast injection. Deployment of RIGHT double-J ureteral stent. SC/C-arm FL for Urology IMPRESSION: Images obtained for intraoperative purposes.
--- NOTE | 2022-04-13 06:35 | P.ANESUD_ITS ---
Pre-Anesthetic Update Pre-Anesthetic Assessment: Date of Surgery/Procedure: 04/13/22 Preop Yesenia gnosis: Refractory right proximal ureteral stone Proposed Procedure: Operation Date: 04/13/22 07:00 Proposed Procedures p CYSTOSCOPY RIGHT RETROGRADE URETEROSCOPY LASER STENT [id number] MODIFIER 26,N20.0(Not Applicable) - MD latia Beard Retrograde Pyelogram(Right) - MD latia Beard Ureteroscopy(Right) - MD latia Beard Laser Lithotripsy(Right) - MD latia Beard Ureteral Stent Placement(Right) - Shawn Hylton MD Any changes to Pre-Anesthetic Assessment?: No Last Intake: Intake Last Liquid Date 04/12/22 Last Liquid Time 21:00 Last Solid Date 04/12/22 Last Solid Time 20:00 Vitals: Temperature 97.3 F L 04/13/22 06:00 Temperature Source Temporal Artery S can 04/13/22 06:00 Pulse Rate 70 04/13/22 06:00 Respiratory Rate 17 04/13/22 06:00 Blood Pressure 122/92 04/13/22 06:00 Blood Pressure Gema n 102 04/13/22 06:00 Pulse Oximetry 97 04/13/22 06:00 Oxygen Delivery Me thod 04/13/22 06:08 Exam: Pre-Anes Outpt Exam: alert, oriented x 3, clear to auscultation bilaterally and regular rate & rhythm Cardiac Studies: No Data to Display
[2022-04-13] MEDS: metoclopramide 5 mg/mL SDV 2 mL 10 MG IVP (06:41)
[2022-04-13] MEDS: sodium chloride 0.9% 1,000 ML 30 ML IV (06:41)
[2022-04-13] MEDS: famotidine 20 mg/2 mL INJ IVP (06:43)
[2022-04-13] MEDS: scopolamine 1.5 Patch 1 PATCH TRANSDERMA (06:44)
[2022-04-13] MEDS: levofloxacin-dextrose 5 % 500 MG/100 ML PREMIX 100 MG IV (07:00)
[2022-04-13] MEDS: iohexol 300 mg/mL 50 mL Btl (OR ONLY) 10 ML XX (07:38)
--- NOTE | 2022-04-13 08:41 | P.OP_ITS ---
Operative Report Date of procedure: April 13, 2022 Pre-op diagnosis: Refractory right proximal ureteral stone Post-op diagnosis: Refractory right proximal ureteral stone Procedure done: 1. Cystoscopy, RIGHT retrograde ureteropyelogram 2. Right ureteroscopy, laser lithotripsy, stent Implants: 6 Macedonian by 30 cm double-pigtail stent without string Pathology: Stone fragments Surgeon: Concetta Estimated blood loss: Minimal Urine output: Not measured Complications: None Findings: Anesthesia: General Condition: Stable Disposition: PACU Intraoperative findings: * Stone in the expected position with some impaction. There was essentially a pocket in the ureter with some narrowing proximally and distally from inflammatory changes. * Stone was readily accessible with laser and completely fragmented both in the ureter and some of the migrated pieces in the renal pelvis. No significant fragments remained but should be difficult to pass * Stent left indwelling for healing of the inflamed area. Brief History: Charlee is a very pleasant 52-year-old white female recently diagnosed with a right proximal obstructing ureteral stone on lumbar CT scan. Follow-up imaging confirmed this. She was having intermittent right-sided renal colicky symptoms and ultimately elected for treatment of the stone. Endoscopic treatment was selected due to her large size which would attenuate the shockwave effectiveness. Procedure: After routine preoperative evaluation examination and obtaining of informed consent she was taken to the operating suite on 04/13/2022 where general anesthesia was administered without difficulty after appropriate timeout was performed, SCDs confirmed to be functioning, preoperative antibiotics administered, beta-wali protocol confirmed. Prepped and draped in the usual sterile fashion in dorsolithotomy position paying careful attention to avoiding pressure points. 21 Macedonian cystoscope with 30 degree lens was introduced into the urethra meatus and advanced into the bladder without difficulty. The bladder was inspected. There was no stone or other abnormality identified. An 8 Macedonian cone-tip catheter was intubated into the right ureteral orifice and a RIGHT RETROGRADE URETEROPYELOGRAM was performed showing normal course and caliber of the ureter distal to the stone. The stone was demonstrated as a filling defect with some narrowing proximally and distally. Contrast did migrate proximal to the stone and filled the collecting system which showed some mild dilation. No other stones were seen proximal to the stone. A flexible tip guidewire was then advanced up the ureter but could not easily be advanced beyond the stone. An opening ureteral catheter was advanced to just below the stone and a zip wire was then utilized which easily passed the stone curling in the upper pole calyx. The open-ended ureteral catheter was manipulated over the zip wire into the renal pelvis and the zip wire was removed. A routine flexible tip guidewire was then advanced through the open- ended ureteral catheter and the opening ureteral catheter removed. The wire was secured to the drapes as a safety wire. A 7 Macedonian offset semirigid ureteroscope was then advanced up the right ureter next to the guidewire and the stone was encountered in its expected position. As expected there was a lot of inflammation of the ureteral mucosa distal to the stone but the stone was readily visible. It did not appear to be walled off with membrane. A 365 thulium superpulse laser fiber was utilized to completely fragment the stone. Most of the byproduct of fragmentation was sand like sized material. There was a least 1 larger fragment the migrated into the renal pelvis and for that reason a flexible ureteroscope was selected. Prior to removal of the offset ureteroscope a guidewire was passed into the renal pelvis ureteroscope removed and a 38 cm ureteral access sheath was advanced over the working wire to below the level of the stone and the wire and inner sheath removed. Flexible ureteroscope was then easily advanced into the kidney. 2 moderate- sized fragments were identified. They were then treated with laser and were completely fragmented. Final inspection showed no significant fragments remaining. The ureteral access sheath was withdrawn onto the hub of the scope and the ureter was inspected as the scope was withdrawn. Other than the inflammatory changes around the area of the stone location the ureter was minimally traumatized from the procedure. The cystoscope was then backloaded over the safety wire and a 6 Macedonian by 28 cm double-pigtail stent was advanced over the guidewire through the cystoscope into appropriate position as confirmed via fluoroscopy and cystoscopy. There was a small amount of stone debris that was flushed out of the bladder and sent for pathologic evaluation. Bladder was drained and the procedure was completed. She tolerated procedure well without complications and was awakened in the operating room and returned to the recovery room in stable condition. PLANS: 1. Anticipate discharge from outpatient surgery 2. Follow-up with early in the second week of April for stent removal.
--- NOTE | 2022-04-13 15:07 | ANE.PACU2 ---
Inpatient post-anesthesia follow up: Airway intact: Yes Vital signs: Temperature 97.0 F Pulse Rate 60 Respiratory Rate 17 Blood Pressure 124/79 Pulse Oximetry 93 Oxygen Delivery Me thod Room Air Oxygen Flow Rate 6 Fraction of Inspir ed Oxygen Hydration adequate: Yes Nausea and vomiting: No Pain level: 1 Mental status: Baseline
== END 2022-04-13 09:49 | disposition home or self-care (01) ==
PROVIDERS: PCP Family Medicine; Visit Provider Urology
PROC: 0TJB8ZZ Inspection of Bladder, Via Natural or Artificial Opening Endoscopic (ICD-10-PCS; CPT 52000; principal; 2022-04-13 07:00)
PROC: (CPT 74420; 2022-04-13 07:00)
PROC: 0TJ98ZZ Inspection of Ureter, Via Natural or Artificial Opening Endoscopic (ICD-10-PCS; CPT 52351; 2022-04-13 07:00)
PROC: (CPT 52356; 2022-04-13 07:00)
PROC: (CPT 50605; 2022-04-13 07:00)
DX: N20.1 Calculus of ureter (principal); G47.30 Sleep apnea, unspecified; K21.9 Gastro-esophageal reflux disease without esophagitis; E66.01 Morbid (severe) obesity due to excess calories; Z68.43 Body mass index [BMI] 50.0-59.9, adult; F41.9 Anxiety disorder, unspecified; I10 Essential (primary) hypertension; E03.9 Hypothyroidism, unspecified; F17.210 Nicotine dependence, cigarettes, uncomplicated
CPT/HCPCS: 52356; 76000; 82365; 88300; 93005; C2625; J0330; J1100; J1956; J2370; J2405; J2704; J2710; J2765; J3010; J3490; J7030

== ENCOUNTER → 2022-04-18 14:47 | Outpatient (BNVA) | payer MEDICARE, MEDICAID, OTHER, SELFPAY ==
[2021-05-20 15:19] VITALS: BP 173/106; BMI 45.3
== END ==
PROVIDERS: PCP Family Medicine; Visit Provider Surgery
DX: K80.10 Calculus of gallbladder with chronic cholecystitis without obstruction (principal); R10.9 Unspecified abdominal pain; Z79.899 Other long term (current) drug therapy; K62.5 Hemorrhage of anus and rectum
CPT/HCPCS: 99203

== ENCOUNTER → 2022-04-21 10:30 | Outpatient (BNVA) | payer MEDICARE, OTHER, SELFPAY ==
[2021-05-20 15:19] VITALS: BP 173/106; BMI 45.3
== END ==
PROVIDERS: PCP Family Medicine; Visit Provider Urology
DX: N20.0 Calculus of kidney (principal); N20.1 Calculus of ureter; F41.8 Other specified anxiety disorders; E66.01 Morbid (severe) obesity due to excess calories; Z68.43 Body mass index [BMI] 50.0-59.9, adult; I10 Essential (primary) hypertension
CPT/HCPCS: 81003

== ENCOUNTER 2022-05-02 13:57 | Outpatient (CLI) | payer MEDICARE, OTHER, SELFPAY ==
[2021-05-20 15:19] VITALS: BP 173/106; BMI 45.3
--- NOTE | 2022-05-02 14:08 | XR_ITS ---
WS: [id number] KUB, AP view, 05/02/2022 Clinical Data: STONES Comparison: KUB, 04/07/2022 Findings: No abnormal intraabdominal masses or calcifications are seen. There is no dilatated small bowel or ev idence of obstruction. A right ureteral stent is in good position. The calculus which had been overlying the right L4 transv erse process is not seen XR/XR KUB [id number] Impression: Right ureteral stent.
== END 2022-05-02 13:58 | disposition home or self-care (01) ==
LOC: RAD 14:00
PROVIDERS: PCP Family Medicine; Visit Provider Urology
DX: N20.1 Calculus of ureter (principal); Z96.0 Presence of urogenital implants
CPT/HCPCS: 52310; 74018; 81003

== ENCOUNTER 2022-06-08 10:38 | Emergency (ER) | payer MEDICARE, OTHER, SELFPAY ==
[2021-05-20 15:19] VITALS: BP 173/106; BMI 45.3
[2022-06-08 10:42] VITALS: BP 185/100; PULSE 77; RESP 22; TEMP 36.4; O2SAT 94; BMI 54.0
[2022-06-08] MEDS: ipratropium-albuterol 3 mL Neb INHALATION (11:08)
[2022-06-08 11:10] VITALS: PULSE 61; RESP 22; O2SAT 96
[2022-06-08 11:14] VITALS: PULSE 59
--- NOTE | 2022-06-08 11:16 | XR_ITS ---
WS: [id number] Exam: XR chest 1V portable [id number] Date/Time of Exam: 06/08/2022 11:16 AM Reason For Exam: dyspnea/cough Comparison 09/12/2020. The lungs are clear and fully expanded. Normal cardiomediastinal silhouette. No pleural effusions. Tip ny structures are unremarkable. Surgical clips and sutures in the neck. XR/XR chest 1V portable [id number] IMPRESSION: 1. Negative chest. No change.
--- NOTE | 2022-06-08 11:23 | ED_ITS ---
HPI - SOB/Dyspnea General: Chief Complaint: Upper Respiratory Infection Stated Complaint: sob Time Seen by Provider: 06/08/22 10:43 Source: patient Mode of arrival: ambulatory History of Present Illness: HPI Narrative: 52-year-old female presents emergency room complaining of been sick for the last 2 days. Several other family members have been sick she has a history of asthma. She uses a nebulizer as needed her nebulizer has not been working so she has been able to use it is only been using an inhaler. She has noticed increasing difficulty breathing and wheezing some mildly productive cough. No vomiting no diarrhea. She is afebrile at the time of presentation. MD elicited complaint: shortness of breath and cough Pertinent past history: asthma Context: recent illness Timing: constant and progressively worsening Severity: moderate Exacerbating factors: exertion and coughing Relieving factors: rest and bronchodilators Known history of: asthma Associated symptoms: Reports chest congestion; Deny abdominal pain, chest pain, diaphoresis, dizziness, extremity pain, fever(s), hemoptysis, lightheadedness, myalgias, nausea, orthopnea, palp itations, paresthesias, polydipsia, polyuria, rash, sense of impending doom, syncope or vomiting Treatment prior to arrival: none Review of Systems Const: Denies: fever(s), chills, fatigue, malaise or diaphoresis ENMT: Denies: throat pain, ear or mastoid pain, nasal discharge or nasal congestion Card: Denies: chest pain, palpitations, lightheadedness, syncope or orthopnea Resp: Reports: chest congestion; Denies: hemoptysis GI: Denies: abdominal pain, nausea or vomiting : Denies: flank pain, difficulty voiding, dysuria, urinary frequency or u rinary urgency Musc: Denies: extremity pain Skin/Breast: Denies: rash or pruritus Neuro: Denies: dizziness Endo: Denies: polyuria or polydipsia PFSH ED PFSH: Medical History Anxiety disorder Asthma, mild intermittent, well-controlled Encounter for long-term opiate analgesic use Encounter for tobacco use cessation counseling Fibromyalgia Hematuria Hypertension Hypothyroidism Hx allergy to all thyroid medication but has been through desensitization of levothyroxine. Major depressive disorder, recurrent, moderate Mild intermittent asthma with acute exacerbation Opioid contract exists Post-traumatic stress disorder, chronic Psychiatric care Seasonal allergies Smoker Surgical History H/O thyroidectomy Family History Mother Cancer Family/Other Heart disease Social History Smoking and tobacco status: former smoker Alcohol intake: never Desire information about alcohol rehabilitation?: No Marital status: / Current occupational status: disabled History of recent travel: No Female Reproductive History: Spontaneous abortions: No Physical Exam Const: COMMON NORMALS: no acute distress GENERAL APPEARANCE: cooperative and comfortable ORIENTATION/CONSCIOUSNESS: Yes awake, Yes oriented to person, Yes oriented to place and Yes oriented to time HENMT: COMMON NORMALS: normocephalic, atraumatic and hearing grossly normal bilaterally HEAD & SCALP: normocephalic and atraumatic Eye: COMMON NORMALS: Equal, round and reactive pupils present, EOMs intact bilaterally, conjunctivae normal and no scleral icterus CONJUNCTIVA: Yes conjunctivae normal PUPIL: Yes Equal, round and reactive pupils present Neck/C-Spine: COMMON NORMALS: full ROM, no lymphadenopathy, supple and no JVD Lymph: LYMPHATIC: no lymphadenopathy noted and no lymphedema noted Resp: COMMON NORMALS: normal respiratory effort, No retractions, No use of accessory muscles and clear to auscultation bilaterally AUSCULTATION: clear to auscultation bilaterally Cardio: COMMON NORMALS: no JVD, regular rate, regular rhythm and No murmurs present (Cardio) RATE: regular rate RHYTHM: regular rhythm GI: COMMON NORMALS: Soft to palpation and No hepatosplenomegaly present AUSCULTATION: Yes normoactive bowel sounds PALPATION: Yes Soft to palpation, No Tenderness to palpation present (GI), No Guarding due to palpation present (GI) and Yes No hepatosplenomegaly present Extremity: COMMON NORMALS: normal to inspection, capillary refill normal, no clubbing, cyanosis or edema, no calf tenderness and no pedal edema Neuro: SENSORIUM/ORIENTATION: Yes oriented to person, Yes oriented to place and Yes oriented to time Skin: COMMON NORMALS: no rashes or lesions noted GENERAL SKIN EXAM: no rashes or lesions noted Course Vital Signs: Vital signs: Vital Signs Temperature 97.6 F 06/08/22 10:42 Pulse Rate 54 L 06/08/22 12:32 Respiratory Rate 14 06/08/22 13:18 Blood Pressure 157/92 06/08/22 12:32 Pulse Oximetry 92 06/08/22 12:32 Oxygen Delivery Me thod 06/08/22 12:32 MDM - SOB/Dyspnea Medical Decision Making Patient improved after nebulizers. Labs and imaging reviewed we will discharge patient home steroid taper doxycycline and aggressive use of albuterol for pulmonary toilet I did give her a prescription for a nebulizer as well. Medical Records I reviewed the patient's medical records. Lab Data I reviewed the patient's lab results. : 06/08/22 11:05 06/08/22 11:05 Labs/Radiology: Radiology Impressions Chest X-Ray 06/08/22 11: IMPRESSION: 1. Negative chest. No change. Laboratory Results WBC 3.7 10^3/uL (4.0-10.0) L 06/08/22 11:05 RBC 3.83 10^6/uL (4.1-5.3) L 06/08/22 11:05 Hgb 11.4 g/dL (11.5-15.3) L 06/08/22 11:05 Hct 36.0 % (37.0-47.0) L 06/08/22 11:05 MCV 94.0 fl (81-99) 06/08/22 11:05 MCH 29.8 pg (28.0-34.0) 06/08/22 11:05 MCHC 31.7 g/dL (30.0-36.0) 06/08/22 11:05 RDW 12.6 % (12.1-15.1) 06/08/22 11:05 Plt Count 130 10^3/cmm (130-400) 06/08/22 11:05 MPV 11.5 fL (7.4-10.4) H 06/08/22 11:05 Neut % (Auto) 68.2 % 06/08/22 11:05 Lymph % (Auto) 14.4 % 06/08/22 11:05 Vernon % (Auto) 14.4 % 06/08/22 11:05 Eos % (Auto) 1.6 % 06/08/22 11:05 Baso % (Auto) 0.3 % 06/08/22 11:05 Neut # (Auto) 2.50 10^3/uL (1.8-7.7) 06/08/22 11:05 Lymph # (Auto) 0.5 10^3/uL (0.8-4.8) L 06/08/22 11:05 Vernon # (Auto) 0.5 10^3/uL (0.2-0.9) 06/08/22 11:05 Eos # (Auto) 0.1 10^3/uL (0.0-0.8) 06/08/22 11:05 Baso # (Auto) 0.0 10^3/uL (0.0-0.1) 06/08/22 11:05 Nucleated RBC % (auto) 0 % 06/08/22 11:05 Nucleated RBCs # 0.0 /100WBC 06/08/22 11:05 Sodium 139 mmol/L (136-145) 06/08/22 11:05 Potassium 3.8 mmol/L (3.5-5.1) 06/08/22 11:05 Chloride 100 mmol/L (98-107) 06/08/22 11:05 Carbon Dioxide 28 mmol/L (22-29) 06/08/22 11:05 Anion Gap 14.8 (5-19) 06/08/22 11:05 BUN 12 mg/dL (6-20) 06/08/22 11:05 Creatinine 1.0 mg/dL (0.5-0.9) H 06/08/22 11:05 GFR Calculation 57.8 mL/min (90-130) L 06/08/22 11:05 Glucose 118 mg/dL (65-115) H 06/08/22 11:05 Calculated Osmolality 289 mOsm/kg (285-295) 06/08/22 11:05 Calcium 8.2 mg/dL (8.5-10.5) L 06/08/22 11:05 Total Bilirubin 0.2 mg/dL (0.15-1.2) 06/08/22 11:05 AST 16 U/L (0-32) 06/08/22 11:05 ALT 19 U/L (0-33) 06/08/22 11:05 Alkaline Phosphatase 75 U/L (35-105) 06/08/22 11:05 Troponin T Baseline 7 ng/L (0-10) 06/08/22 11:05 Total Protein 6.4 g/dL (6.6-8.7) L 06/08/22 11:05 Albumin 3.5 g/dL (3.5-5.2) 06/08/22 11:05 Globulin 2.9 g/dL (1.3-4.6) 06/08/22 11:05 Discharge Plan Discharge Patient Disposition: Home Clinical Impression: Mild intermittent asthma with acute exacerbation Condition: Stable Prescriptions: New doxycycline hyclate 100 mg capsule 100 mg PO BID 10 Days Qty: 20 0RF prednisone 20 mg tablet 20 mg PO TID Qty: 15 0RF Rx Instructions: 1 p.o. 3 times daily x3 days, 1 p.o. twice daily x2 days, 1 p.o. daily x2 days ipratropium-albuterol 0.5 mg-3 mg(2.5 mg base)/3 mL solution for nebulization 3 ml inhalation Q4H PRN (Reason: shortness of breath or wheezing) Qty: 180 0RF Rx Instructions: until breathing returns to target peak flow/parameters No Action levothyroxine [Euthyrox] 175 mcg tablet 175 mcg PO DAILY 90 Days Qty: 90 3RF omeprazole 40 mg capsule,delayed release(DR/EC) 40 mg PO DAILY 90 Days Qty: 90 3RF metoprolol succinate 100 mg tablet extended release 24 hr 100 mg PO DAILY 90 Days Qty: 90 1RF tramadol 50 mg tablet 100 mg PO Q6H PRN (Reason: pain) nicotine 14 mg/24 hr patch 24 hour 1 patch transdermal DAILY Qty: 28 1RF risperidone [Risperdal] 1 mg tablet See Rx Instructions PO .COMPLEX Qty: 90 0RF Rx Instructions: orally; 1 tab in AM and 2 in PM duloxetine [Cymbalta] 60 mg capsule,delayed release(DR/EC) 60 mg PO DAILY Qty: 30 3RF albuterol sulfate 2.5 mg /3 mL (0.083 %) solution for nebulization 2.5 mg INHALATION Q4H PRN (Reason: Shortness Of Breath) Qty: 180 0RF albuterol sulfate [Ventolin HFA] 90 mcg/actuation HFA aerosol inhaler 90 mcg INHALATION DAILY Rx Instructions: 1-2 inhalation EVERY 4 TO 6 HOURS PRN; gabapentin 800 mg tablet See Rx Instructions .ROUTE .COMPLEX Rx Instructions: 800 mg orally ;Take 2 at midday and 1 at bedtime Tylenol 325 mg Capsule 650 mg PO QID PRN (Reason: Pain) Discharge Orders: Discharge ED (Routine); Ordered 06/08/22 Ordered By: Syed Aguiar Other Ambulatory Orders: DME: Nebulizer with Neb Kit (Order) Location: None Selected Ordered By: Syed Aguiar Referrals: Corazon Cardona MD [Primary Care Provider] - Patient Instructions: Opioid Safety, Pain Management Coding Level of Care Code ED Aeronautical Design Engineer for Chg Fwd Exam Comprehensive
[2022-06-08 11:25] VITALS: PULSE 55; RESP 16; O2SAT 97
--- NOTE | 2022-06-08 11:33 | ECG_ITS ---
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 Measurements Intervals [place] Rate: 58 P: 40 MD: 180 QRS: 21 QRSD: 88 T: 53 QT: 389 QTc: 382 Interpretive Statements SINUS BRADYCARDIA LOW QRS VOLTAGE IN PRECORDIAL LEADS [QRS DEFLECTION < 1.0 mV IN CHEST LEADS] Compared to ECG 04/12/2022 13:27:06 Sinus rhythm no longer present Sinus arrhythmia no longer present T-wave abnormality no longer present Possible ischemia no longer present Electronically Signed On 06-10-2022 6:28:[address]ITOR by Lane Craig M.D. [id number]
[2022-06-08 11:46] LABS: Basophils % 0.3 %; Eosinophils # 0.1 10^3/uL (0.0-0.8); Eosinophils % 1.6 %; Hemoglobin 11.4 g/dL (11.5-15.3); Lymphocytes # 0.5 10^3/uL (0.8-4.8); Lymphocytes % 14.4 %; Mean Corpuscular HGB Conc 31.7 g/dL (30.0-36.0); Mean Corpuscular Hemoglobin 29.8 pg (28.0-34.0); Mean Platelet Volume 11.5 fL (7.4-10.4); Monocytes # 0.5 10^3/uL (0.2-0.9); Monocytes % 14.4 %; Neutrophils % 68.2 %; Nucleated Red Blood Cells % 0 %; Platelet Count 130 10^3/cmm (130-400); Red Blood Count 3.83 10^6/uL (4.1-5.3); Red Cell Distribution Width 12.6 % (12.1-15.1); White Blood Count 3.7 10^3/uL (4.0-10.0)
[2022-06-08 11:56] LABS: Troponin(5th) Baseline 7 ng/L (0-10)
[2022-06-08 11:58] LABS: Alanine Aminotransferase 19 U/L (0-33); Albumin Level 3.5 g/dL (3.5-5.2); Alkaline Phosphatase 75 U/L (35-105); Anion Gap 14.8 (5-19); Aspartate Amino Transferase 16 U/L (0-32); Blood Urea Nitrogen 12 mg/dL (6-20); Calcium 8.2 mg/dL (8.5-10.5); Carbon Dioxide 28 mmol/L (22-29); Chloride 100 mmol/L (98-107); Globulin 2.9 g/dL (1.3-4.6); Glomerular Filtration Rate 57.8 mL/min (90-130); Glucose 118 mg/dL (65-115); Osmolality Calculated 289 mOsm/kg (285-295); Potassium 3.8 mmol/L (3.5-5.1); Sodium 139 mmol/L (136-145); Total Bilirubin 0.2 mg/dL (0.15-1.2); Total Protein 6.4 g/dL (6.6-8.7)
[2022-06-08 12:32] VITALS: BP 157/92; PULSE 54; RESP 18; O2SAT 92
[2022-06-08 13:18] VITALS: RESP 14
== END 2022-06-08 13:20 | disposition home or self-care (01) ==
PROVIDERS: Emergency Provider Family Medicine; PCP Family Medicine
DX: J45.21 Mild intermittent asthma with (acute) exacerbation (principal); Z87.891 Personal history of nicotine dependence; I10 Essential (primary) hypertension
CPT/HCPCS: 71045; 80053; 84484; 85025; 93005; 94640; 96374; 99285; J2930

== ENCOUNTER → 2022-11-10 14:48 | Outpatient (BNVA) | payer MEDICARE, OTHER, SELFPAY ==
[2021-05-20 15:19] VITALS: BP 173/106; BMI 45.3
== END ==
PROVIDERS: PCP Family Medicine; Visit Provider Family Medicine
DX: K80.20 Calculus of gallbladder without cholecystitis without obstruction (principal); K21.9 Gastro-esophageal reflux disease without esophagitis; I10 Essential (primary) hypertension; E03.9 Hypothyroidism, unspecified; M79.7 Fibromyalgia; J45.909 Unspecified asthma, uncomplicated; J45.20 Mild intermittent asthma, uncomplicated; R11.0 Nausea; L25.9 Unspecified contact dermatitis, unspecified cause; N90.7 Vulvar cyst; K80.10 Calculus of gallbladder with chronic cholecystitis without obstruction; E11.9 Type 2 diabetes mellitus without complications
CPT/HCPCS: 80053; 80061; 82977; 83036; 83690; 84439; 84443; 84481; 85025

== ENCOUNTER → 2022-11-28 15:53 | Outpatient (BNVA) | payer MEDICARE, OTHER, SELFPAY ==
[2021-05-20 15:19] VITALS: BP 173/106; BMI 45.3
== END ==
PROVIDERS: PCP Family Medicine; Visit Provider Nurse Practitioner Family
DX: N39.0 Urinary tract infection, site not specified (principal); R10.11 Right upper quadrant pain; R10.12 Left upper quadrant pain; N30.01 Acute cystitis with hematuria
CPT/HCPCS: 80053; 81000; 83690; 85025

== ENCOUNTER 2022-12-05 20:29 | Emergency (ER) | payer MEDICARE, OTHER, MEDICAID, SELFPAY ==
[2021-05-20 15:19] VITALS: BP 173/106; BMI 45.3
[2022-12-05] VITALS (8 sets, daily range): BP systolic 145–170; BP diastolic 67–128; PULSE 96–153; RESP 20–22; TEMP 36.6; O2SAT 94–100; BMI 44.2
[2022-12-05 21:38] LABS: Basophils # 0.1 10^3/uL (0.0-0.1); Basophils % 0.9 %; Eosinophils # 0.2 10^3/uL (0.0-0.8); Eosinophils % 1.6 %; Hematocrit 46.2 % (37.0-47.0); Hemoglobin 14.7 g/dL (11.5-15.3); Lymphocytes # 3.2 10^3/uL (0.8-4.8); Lymphocytes % 31.3 %; Mean Corpuscular HGB Conc 31.8 g/dL (30.0-36.0); Mean Corpuscular Hemoglobin 29.3 pg (28.0-34.0); Mean Platelet Volume 11.6 fL (7.4-10.4); Monocytes # 0.4 10^3/uL (0.2-0.9); Monocytes % 4.2 %; Neutrophils # 6.27 10^3/uL (1.8-7.7); Neutrophils % 61.6 %; Nucleated Red Blood Cells % 0 %; Platelet Count 249 10^3/cmm (130-400); Red Blood Count 5.02 10^6/uL (4.1-5.3); Red Cell Distribution Width 13.2 % (12.1-15.1); White Blood Count 10.2 10^3/uL (4.0-10.0)
[2022-12-05 22:10] LABS: Alanine Aminotransferase 36 U/L (0-33); Albumin Level 4.4 g/dL (3.5-5.2); Alkaline Phosphatase 80 U/L (35-105); Anion Gap 25.9 (5-19); Aspartate Amino Transferase 39 U/L (0-32); Blood Urea Nitrogen 11 mg/dL (6-20); Calcium 9.9 mg/dL (8.5-10.5); Carbon Dioxide 18 mmol/L (22-29); Chloride 97 mmol/L (98-107); Globulin 4.3 g/dL (1.3-4.6); Glomerular Filtration Rate 65.2 mL/min (90-130); Glucose 100 mg/dL (65-115); Lipase 7 U/L (13-60); Osmolality Calculated 283 mOsm/kg (285-295); Potassium 3.9 mmol/L (3.5-5.1); Sodium 137 mmol/L (136-145); Total Bilirubin 0.4 mg/dL (0.15-1.2); Total Protein 8.7 g/dL (6.6-8.7)
--- NOTE | 2022-12-05 22:42 | USR_ITS ---
PROCEDURE INFORMATION: Exam: US Abdomen, Limited; Right Upper Quadrant Exam date and time: 12/05/2022 11:34 PM Age: 52 years old Clinical indication: Abdominal pain; Patient HX: Patient is scheduled for lapchole in 3 days. C/O ruq pain. TECHNIQUE: Imaging protocol: Real time ultrasound of the abdomen with image documentation. Limited exam focused on the right upper quadrant. COMPARISON: 1. CT abdomen pelvis w con* [id number] 12/06/2022 12:[address] kidney stone [id number] 04/06/2022 3:27 PM FINDINGS: Liver: Increased echogenicity of the liver parenchyma without focal mass. Gallbladder: Cholelithiasis with echogenic shadowing obscuring most of the gallbladder wall. Small portion of the visible gallbladder wall is unremarkable without thickening apparent. Negative for pericholecystic fluid. Biliary ducts: Normal. No stones. No dilation. Pancreas: Visualized pancreas is unremarkable. Right kidney: Normal. No mass. No hydronephrosis. Intraperitoneal space: Negative for intraperitoneal fluid collection. US/US gall bladder [id number] IMPRESSION: 1. Positive for cholelithiasis. Negative for acute cholecystitis features. 2. Negative for biliary obstruction. 3. Liver steatosis.
--- NOTE | 2022-12-05 22:57 | ED_ITS ---
HPI - Abdominal Pain General: Chief Complaint: Abdominal Pain Stated Complaint: ABD Pain\Post Surgery Time Seen by Provider: 12/05/22 22:08 Source: patient Mode of arrival: ambulatory Limitations: no limitations History of Present Illness: 52-year-old female states that she has been having abdominal pain for over a month she has known gallstones she is actually set up for surgery at [facility] on to have a cholecystectomy. States she is having worsening pain today in her PCP is concerned over her liver enzymes ascending here today states pain is epigastric in nature rates it a 5 out of 10 no vomiting no diarrhea denies any fevers. Associated Symptoms: Denies chills, diarrhea, dysuria, fever(s), nausea and vomiting Review of Systems Const: Denies: fever(s), chills or change in appetite ENMT: Denies: throat pain or dental pain Card: Denies: chest pain Resp: Denies: dyspnea GI: Reports: abdominal pain; Denies: nausea, vomiting or diarrhea : Denies: dysuria Musc: Denies: neck pain or back pain Skin/Breast: Reports: rash Neuro: Denies: headache(s) PFSH ED PFSH: Medical History Anxiety disorder Asthma, mild intermittent, well-controlled Encounter for long-term opiate analgesic use Encounter for tobacco use cessation counseling Fibromyalgia Hematuria Hypertension Hypothyroidism Hx allergy to all thyroid medication but has been through desensitization of levothyroxine. Major depressive disorder, recurrent, moderate Medication-induced movement disorder Mild intermittent asthma with acute exacerbation Opioid contract exists Post-traumatic stress disorder, chronic Psychiatric care Seasonal allergies Smoker Treatment-resistant depression Surgical History H/O thyroidectomy Family History Mother Cancer Family/Other Heart disease Social History Smoking and tobacco status: former smoker Alcohol intake: never Desire information about alcohol rehabilitation?: No Substance/Drug Use: never Marital status: / Current occupational status: disabled Female Reproductive History: Spontaneous abortions: No Physical Exam Const: COMMON NORMALS: no acute distress, patient oriented x3 and healthy appearing HENMT: COMMON NORMALS: normocephalic and atraumatic HEAD & SCALP: normocephalic and atraumatic Eye: COMMON NORMALS: conjunctivae normal CONJUNCTIVA: Yes conjunctivae normal Neck/C-Spine: COMMON NORMALS: full ROM and supple Chest: COMMONS NORMALS: normal inspection of the chest and normal palpation of entire chest wall Resp: COMMON NORMALS: normal respiratory effort, No retractions, No use of accessory muscles and clear to auscultation bilaterally AUSCULTATION: clear to auscultation bilaterally Cardio: COMMON NORMALS: regular rate, regular rhythm and No murmurs present (Cardio) RATE: regular rate RHYTHM: regular rhythm GI: COMMON NORMALS: Normal to inspection, nondistended, normoactive bowel sounds present, Soft to palpation and no masses PALPATION: Yes Soft to palpation and Yes Tenderness to palpation present (GI) Details: RUQ Extremity: COMMON NORMALS: normal to inspection and full ROM Neuro: COMMON NORMALS: patient oriented x3, moves all extremities and no focal motor deficits Psych: COMMON NORMALS: mental status grossly normal, Normal thought process present and cooperative THOUGHT PROCESS: Normal thought process present Skin: COMMON NORMALS: no rashes or lesions noted and no wounds GENERAL SKIN EXAM: no rashes or lesions noted Course Vital Signs: Vital signs: Vital Signs Temperature 97.9 F 12/05/22 21:03 Pulse Rate 153 H 12/05/22 23:14 Respiratory Rate 22 H 12/05/22 23:43 Blood Pressure 143/115 12/06/22 00:31 Pulse Oximetry 98 12/06/22 00:31 Oxygen Delivery Me thod Room Air 12/06/22 00:31 MDM - Abdominal Pain Medical Decision Making Patient presents here with abdominal pain she has no gallstones exam is consistent with biliary colic ultrasound CT showed no other acute findings no signs of cholecystitis she is stable for discharge she is to follow-up with her surgeon on as scheduled for her surgery return if worsening. Medical Records I reviewed the patient's medical records. Lab Data I reviewed the patient's lab results. 12/05/22 21:10 12/05/22 21:10 Labs/Radiology: Radiology Impressions Gallbladder Ultrasound 12/05/22 22:42 IMPRESSION: 1. Positive for cholelithiasis. Negative for acute cholecystitis features. 2. Negative for biliary obstruction. 3. Liver steatosis. Abdomen/Pelvis CT 12/05/22 23:49 IMPRESSION: 1. Negative for acute abdominopelvic pathology. 2. Cholelithiasis. No convincing CT scan evidence of acute cholecystitis. Chest X-Ray 12/06/22 00:18 IMPRESSION: No acute findings. Laboratory Results WBC 10.2 10^3/uL (4.0-10.0) H 12/05/22 21:10 RBC 5.02 10^6/uL (4.1-5.3) 12/05/22 21:10 Hgb 14.7 g/dL (11.5-15.3) 12/05/22 21:10 Hct 46.2 % (37.0-47.0) 12/05/22 21:10 MCV 92.0 fl (81-99) 12/05/22 21:10 MCH 29.3 pg (28.0-34.0) 12/05/22 21:10 MCHC 31.8 g/dL (30.0-36.0) 12/05/22 21:10 RDW 13.2 % (12.1-15.1) 12/05/22 21:10 Plt Count 249 10^3/cmm (130-400) 12/05/22 21:10 MPV 11.6 fL (7.4-10.4) H 12/05/22 21:10 Neut % (Auto) 61.6 % 12/05/22 21:10 Lymph % (Auto) 31.3 % 12/05/22 21:10 [place] % (Auto) 4.2 % 12/05/22 21:10 Eos % (Auto) 1.6 % 12/05/22 21:10 Baso % (Auto) 0.9 % 12/05/22 21:10 Neut # (Auto) 6.27 10^3/uL (1.8-7.7) 12/05/22 21:10 Lymph # (Auto) 3.2 10^3/uL (0.8-4.8) 12/05/22 21:10 [place] # (Auto) 0.4 10^3/uL (0.2-0.9) 12/05/22 21:10 Eos # (Auto) 0.2 10^3/uL (0.0-0.8) 05/15/23 21:10 Baso # (Auto) 0.1 10^3/uL (0.0-0.1) 12/05/22 21:10 Nucleated RBC % (auto) 0 % 12/05/22 21:10 Nucleated RBCs # 0.0 /100WBC 12/05/22 21:10 Sodium 137 mmol/L (136-145) 12/05/22 21:10 Potassium 3.9 mmol/L (3.5-5.1) 12/05/22 21:10 Chloride 97 mmol/L (98-107) L 12/05/22 21:10 Carbon Dioxide 18 mmol/L (22-29) L 12/05/22 21:10 Anion Gap 25.9 (5-19) H 12/05/22 21:10 BUN 11 mg/dL (6-20) 12/05/22 21:10 Creatinine 0.9 mg/dL (0.5-0.9) 12/05/22 21:10 GFR Calculation 65.2 mL/min (90-130) L 12/05/22 21:10 Glucose 100 mg/dL (65-115) 12/05/22 21:10 Calculated Osmolality 283 mOsm/kg (285-295) L 12/05/22 21:10 Calcium 9.9 mg/dL (8.5-10.5) 12/05/22 21:10 Total Bilirubin 0.4 mg/dL (0.15-1.2) 12/05/22 21:10 AST 39 U/L (0-32) H 12/05/22 21:10 ALT 36 U/L (0-33) H 12/05/22 21:10 Alkaline Phosphatase 80 U/L (35-105) 12/05/22 21:10 Troponin T Baseline 7 ng/L (0-10) 12/06/22 00:28 Total Protein 8.7 g/dL (6.6-8.7) 12/05/22 21:10 Albumin 4.4 g/dL (3.5-5.2) 12/05/22 21:10 Globulin 4.3 g/dL (1.3-4.6) 12/05/22 21:10 Lipase 7 U/L (13-60) L 12/05/22 21:10 Urine Color Yellow (Yellow) 12/06/22 00:39 Urine Appearance Sl hazy (CLEAR) A 12/06/22 00:39 Urine pH 6 (5-7) 12/06/22 00:39 Ur Specific [place] 1.020 (1.005-1.030) 12/06/22 00:39 Urine Protein Trace (Negative) 12/06/22 00:39 Urine Glucose (UA) Norm (Normal) 12/06/22 00:39 Urine Ketones 3+ (Negative) H 12/06/22 00:39 Urine Blood Neg (Negative) 12/06/22 00:39 Urine Nitrate Negative (Negative) 12/06/22 00:39 Urine Bilirubin 2+ (Negative) H 12/06/22 00:39 Urine Urobilinogen 1 mg/dL (Negative) H 12/06/22 00:39 Ur Leukocyte Esterase 2+ (Negative) H 12/06/22 00:39 Urine RBC 0-4 /hpf (0-2) H 12/06/22 00:39 Urine WBC 10-15 /hpf (0-5) H 12/06/22 00:39 Ur Squamous Epith Cells 5-10 /hpf (0-5) H 12/06/22 00:39 Amorphous Sediment 2+ /hpf 12/06/22 00:39 Urine Bacteria 2+ /hpf (NONE) H 12/06/22 00:39 Urine Mucus 3+ /hpf 12/06/22 00:39 EKG Data EKG 1: I personally reviewed and interpreted this EKG as follows: EKG interpretation date: 12/06/22 EKG interpretation time: 00:24 Interpretation: nsr hr [address] elevation qrs 85 qtc 423 Discharge Plan Discharge Patient Disposition: Home Clinical Impression: Cholelithiases, Biliary colic Condition: Stable Prescriptions: New hydrocodone-acetaminophen 5-325 mg tablet 1 tab PO Q6H PRN (Reason: pain) Qty: 14 0RF ondansetron 4 mg tablet,disintegrating 4 mg PO Q6H PRN (Reason: nausea and vomiting) Qty: 14 0RF No Action tramadol 50 mg tablet 100 mg PO Q6H PRN (Reason: pain) brexpiprazole 3 mg tablet 3 mg PO DAILY Qty: 30 0RF hydroxyzine HCl 25 mg tablet 25 mg PO TID PRN (Reason: itching or anxiety) Qty: 90 0RF omeprazole 40 mg capsule,delayed release(DR/EC) 40 mg PO DAILY 90 Days Qty: 90 3RF metoprolol succinate 100 mg tablet extended release 24 hr 100 mg PO DAILY 90 Days Qty: 90 1RF levothyroxine [Euthyrox] 175 mcg tablet 175 mcg PO DAILY 90 Days Qty: 90 1RF ipratropium-albuterol 0.5 mg-3 mg(2.5 mg base)/3 mL solution for nebulization 3 ml inhalation Q4H PRN (Reason: shortness of breath or wheezing) Qty: 180 1RF Rx Instructions: until breathing returns to target peak flow/parameters gabapentin 800 mg tablet 800 mg PO TID 30 Days Qty: 90 5RF albuterol sulfate 2.5 mg /3 mL (0.083 %) solution for nebulization 2.5 mg INHALATION Q4H PRN (Reason: Shortness Of Breath) Qty: 180 5RF albuterol sulfate [Ventolin HFA] 90 mcg/actuation HFA aerosol inhaler 90 mcg INHALATION DAILY Qty: 8.5 5RF Rx Instructions: 1-2 inhalation EVERY 4 TO 6 HOURS PRN; ondansetron 4 mg tablet,disintegrating 4 mg PO Q8H PRN (Reason: nausea and vomiting) Qty: 30 2RF triamcinolone acetonide 0.1 % ointment 1 applic topical BID Qty: 80 1RF Rx Instructions: to right hand cephalexin 500 mg capsule 500 mg PO TID 7 Days Qty: 21 0RF duloxetine [Cymbalta] 60 mg capsule,delayed release(DR/EC) 60 mg PO DAILY Qty: 30 3RF sulfamethoxazole-trimethoprim [Bactrim DS] 800-160 mg tablet 1 tab PO BID 7 Days Qty: 14 0RF amantadine HCl 100 mg tablet 100 mg PO BID Qty: 60 0RF Tylenol 325 mg Capsule 650 mg PO QID PRN (Reason: Pain) Discharge Orders: Discharge ED (Routine); Ordered 12/06/22 Ordered By: Gopal Lyons Referrals: Corazon Cardona MD [Primary Care Provider] - Discharge Diet: Advance as tolerated Discharge Activity: Resume usual activity Patient Instructions: Abdominal Pain (ED), Opioid Safety Coding Level of Care Code ED 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
[2022-12-05] MEDS: ondansetron 2 mg/ML SDV 2 mL 4 MG IVP ×2 (23:08→23:50)
[2022-12-05] MEDS: HYDROmorphone 1 mg/mL INJ 1 mL 0.5 MG IVP (23:09)
[2022-12-05] MEDS: sodium chloride 0.9% 1,000 ML 999 ML IV (23:09)
[2022-12-05] MEDS: HYDROmorphone 1 mg/mL INJ 1 mL IVP (23:43)
--- NOTE | 2022-12-05 23:49 | CTR_ITS ---
PROCEDURE INFORMATION: Exam: CT Abdomen And Pelvis With Contrast Exam date and time: 12/06/2022 12:57 AM Age: 52 years old Clinical indication: Abdominal pain; Localized; Right upper quadrant (ruq); Patient HX: C/O severe epigastric/ruq pain. Known cholelithiasis. Scheduled for cholecystecomy later this week. ; Additional info: Abd pain TECHNIQUE: Imaging protocol: Computed tomography of the abdomen and pelvis with contrast. Radiation optimization: All CT scans at this facility use at least one of these dose optimization techniques: automated exposure control; mA and/or kV adjustment per patient size (includes targeted exams where dose is matched to clinical indication); or iterative reconstruction. Contrast material: OMNI 350; Contrast volume: 100 ml; Contrast route: INTRAVENOUS (IV); REPORTING DATA: Count of CT and Cardiac NM exams in prior 12 months: This patient has received 2 known CTs and 0 known cardiac nuclear medicine studies in the 12 months prior to the current study. COMPARISON: CT kidney stone [id number] 04/06/2022 3:27 PM RADIATION DOSE METRICS: Total DLP (mGy-cm): 1141.73 FINDINGS: Diaphragm: Small hiatal hernia. Liver: Liver steatosis. Gallbladder and bile ducts: Cholelithiasis. Negative for gallbladder wall thickening. Negative for biliary system dilation. Pancreas: Normal. No ductal dilation. Spleen: Normal. No splenomegaly. Adrenal glands: Normal. No mass. Kidneys and ureters: Normal. No hydronephrosis. Stomach and bowel: Unremarkable. No obstruction. No mucosal thickening. Appendix: Normal appendix. Intraperitoneal space: Unremarkable. No free air. No significant fluid collection. Vasculature: Unremarkable. No abdominal aortic aneurysm. Lymph nodes: Unremarkable. No enlarged lymph nodes. Urinary bladder: Decompressed, grossly unremarkable bladder. Reproductive: Unremarkable uterus. Normal right ovary. Small simple left ovary cyst measures 2.7 cm x 2.7 cm. Bones/joints: Unremarkable. No acute fracture. Soft tissues: Unremarkable. CT/CT abdomen pelvis w con* [id number] IMPRESSION: 1. Negative for acute abdominopelvic pathology. 2. Cholelithiasis. No convincing CT scan evidence of acute cholecystitis.
--- NOTE | 2022-12-06 00:01 | ECG_ITS ---
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 Measurements Intervals [place] Rate: 86 P: 13 MO: 148 QRS: 9 QRSD: 85 T: 22 QT: 380 QTc: 455 Interpretive Statements SINUS RHYTHM POSSIBLE INFERIOR MYOCARDIAL INFARCTION , PROBABLY OLD [30 ms Q WAVE IN II/aVF] MODERATE T-WAVE ABNORMALITY, CONSIDER ANTERIOR ISCHEMIA [-0.1+ mV T-WAVE IN V3/V4] Compared to ECG 06/08/2022 11:47:31 Myocardial infarct finding now present T-wave abnormality now present Possible ischemia now present Sinus bradycardia no longer present Electronically Signed On 12-06-2022 0:27:27 CDT by Melodie Loza M.D. [id number]
[2022-12-06] MEDS: LORazepam 2 mg/mL INJ 1 mL 1 MG IVP (00:17)
--- NOTE | 2022-12-06 00:18 | XRR_ITS ---
PROCEDURE INFORMATION: Exam: XR Chest Exam date and time: 12/06/2022 12:51 AM Age: 52 years old Clinical indication: Prior surgery; Surgery date: 6+ months; Surgery type: Thyroidectomy; Patient HX: Epigastric pain; Additional info: Abd pain TECHNIQUE: Imaging protocol: Radiologic exam of the chest. Views: 1 view. COMPARISON: CR XR chest 1V portable [id number] 06/08/2022 12:33 PM FINDINGS: Lungs: Unremarkable. No consolidation. Pleural spaces: Unremarkable. No pleural effusion. No pneumothorax. Heart/Mediastinum: Unremarkable. No cardiomegaly. Bones/joints: Unremarkable. XR/XR chest 1V portable [id number] IMPRESSION: No acute findings.
[2022-12-06 00:31] VITALS: BP 143/115; O2SAT 98
[2022-12-06] MEDS: sodium chloride 0.9% 1,000 ML 999 ML IV (00:43)
[2022-12-06] MEDS: iohexol 350 mg/mL 500 mL Btl (per mL) IV (00:59)
[2022-12-06 01:02] LABS: Troponin(5th) Baseline 7 ng/L (0-10)
[2022-12-06 01:17] LABS: Urine Color Yellow (Yellow)
[2022-12-06 01:18] LABS: Add Urine Microscopic? YES; Bilirubin Urine 2+ (Negative); Blood Urine Neg (Negative); Glucose Urine UA Norm (Normal); Ketones Urine 3+ (Negative); Leukocyte Esterase Urine 2+ (Negative); Nitrate Urine Negative (Negative); Protein Urine Trace (Negative); RBC Urine 0-4 /hpf (0-2); Urine Appearance SL Hazy (CLEAR); Urobilinogen Urine 1 mg/dL (Negative); pH Urine 6 (5-7)
[2022-12-06 01:19] LABS: Add Urine Culture? Yes; Amorphous Sediment Urine 2+ /hpf; Bacteria Urine 2+ /hpf; Mucus Urine 3+ /hpf
[2022-12-06 02:15] VITALS: BP 155/95; PULSE 101; RESP 18; O2SAT 92
== END 2022-12-06 02:19 | disposition home or self-care (01) ==
PROVIDERS: Emergency Provider Emergency Medicine; PCP Family Medicine
DX: K80.20 Calculus of gallbladder without cholecystitis without obstruction (principal); Z87.891 Personal history of nicotine dependence; I10 Essential (primary) hypertension
CPT/HCPCS: 36415; 71045; 74177; 76705; 80053; 81001; 83690; 84484; 85025; 87086; 93005; 96374; 96375; 96376; 99285; J1170; J2060; J2405; J7030; Q9967

== ENCOUNTER 2023-02-02 20:29 | Observation (INO) | payer MEDICARE, OTHER, MEDICAID, SELFPAY ==
[2021-05-20 15:19] VITALS: BP 173/106; BMI 45.3
[2023-02-02 20:36] VITALS: BP 175/85; PULSE 136; RESP 22; TEMP 36.6; O2SAT 96; BMI 42.3
[2023-02-02 20:50] VITALS: BP 144/114; PULSE 136; RESP 16; O2SAT 96
--- NOTE | 2023-02-02 20:52 | CTR_ITS ---
PROCEDURE INFORMATION: Exam: CT Abdomen And Pelvis With Contrast Exam date and time: 02/02/2023 9:25 PM Age: 52 years old Clinical indication: Abdominal pain; Generalized; Prior surgery; Surgery date: 6+ months; Surgery type: Cholecystectomy; Additional info: Abd pain TECHNIQUE: Imaging protocol: Computed tomography of the abdomen and pelvis with contrast. Radiation optimization: All CT scans at this facility use at least one of these dose optimization techniques: automated exposure control; mA and/or kV adjustment per patient size (includes targeted exams where dose is matched to clinical indication); or iterative reconstruction. Contrast material: OMNI 350; Contrast volume: 100 ml; Contrast route: INTRAVENOUS (IV); REPORTING DATA: Count of CT and Cardiac NM exams in prior 12 months: This patient has received 3 known CTs and 0 known cardiac nuclear medicine studies in the 12 months prior to the current study. COMPARISON: CT abdomen pelvis w con* [id number] 12/06/2022 12:57 AM RADIATION DOSE METRICS: Total DLP (mGy-cm): 1156.06 FINDINGS: Lungs: Minimal opacities in the left lower lobe, likely atelectasis. Liver: There are fatty changes of the liver. No hepatic focal. Gallbladder and bile ducts: There has been interval cholecystectomy. Cholecystectomy clips are seen kiara hepatis. No ductal dilation. Pancreas: There is diffuse fatty atrophy of the pancreas. No ductal dilation. Spleen: There is a small splenule. No splenomegaly. Adrenal glands: Slight prominence of the left adrenal gland is a nonspecific finding and appears stable compared the prior. No mass. Kidneys and ureters: Subtle prominence of the left renal pelvis and adjacent proximal upper ureter is a nonspecific finding and may represent extrarenal pelvis. No hydronephrosis. Stomach and bowel: There is a small hiatal hernia. The stomach is mildly distended with food particles common gases, and fluid. The duodenum contains small amount of fluid. Minimal thickening of the colonic milan. No evidence of intestinal obstruction Appendix: No evidence of appendicitis. Intraperitoneal space: No free air. No significant fluid collection. Vasculature: There are mild atherosclerotic calcifications of the abdominal aorta and its branches. No abdominal aortic aneurysm. Lymph nodes: No intra-abdominal lymphadenopathy by CT size criteria. Urinary bladder: The urinary bladder is partially empty. There is mild thickening of the bladder milan. Reproductive: The uterus appears grossly unremarkable. There is a cystic lesion in the left adnexa measuring approximally 2.6 x 3.0 cm, (series 3, image 69 for example), likely representing a renal cyst. Clinical correlation is recommended. Bones/joints: Unremarkable. No acute fracture. Soft tissues: Unremarkable. CT/CT abdomen pelvis w con* [id number] IMPRESSION: 1. Hepatic steatosis. 2. Status post cholecystectomy. 3. Pancreatic atrophy. 4. Mild thickening of the colonic milan may represent colitis in the appropriate clinical setting. Clinical correlation is recommended. 5. Mild thickening of the bladder milan. The urinary bladder is however partially empty. Please correlate with urine analysis. COMMENTS: Consistent with the [employer]'s Incidental Findings Committee white paper (J Am Felicita Radiol 2018): Any incidental renal lesion less than 1 cm or classified as too small to characterize, or any incidental cystic renal lesion characterized as simple-appearing, is likely benign. No follow-up imaging is recommended for these lesions per consensus recommendations based on imaging criteria.
[2023-02-02 20:53] LABS: Basophils # 0.1 10^3/uL (0.0-0.1); Basophils % 0.6 %; Eosinophils # 0.1 10^3/uL (0.0-0.8); Eosinophils % 0.3 %; Hematocrit 47.5 % (37.0-47.0); Hemoglobin 15.7 g/dL (11.5-15.3); Lymphocytes # 3.5 10^3/uL (0.8-4.8); Lymphocytes % 21.1 %; Mean Corpuscular HGB Conc 33.1 g/dL (30.0-36.0); Mean Corpuscular Hemoglobin 30.3 pg (28.0-34.0); Mean Corpuscular Volume 91.5 fl (81-99); Mean Platelet Volume 11.9 fL (7.4-10.4); Monocytes # 0.9 10^3/uL (0.2-0.9); Monocytes % 5.5 %; Nucleated Red Blood Cells % 0 %; Platelet Count 316 10^3/cmm (130-400); Red Blood Count 5.19 10^6/uL (4.1-5.3); Red Cell Distribution Width 12.7 % (12.1-15.1); White Blood Count 16.5 10^3/uL (4.0-10.0)
[2023-02-02 21:00] VITALS: BP 129/101; PULSE 145
--- NOTE | 2023-02-02 21:01 | ECG_ITS ---
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 Measurements Intervals [place] Rate: 129 P: 45 NV: 154 QRS: -43 QRSD: 87 T: 43 QT: 398 QTc: 584 Interpretive Statements SINUS TACHYCARDIA LEFT AXIS DEVIATION [QRS AXIS < -30] LOW QRS VOLTAGE IN PRECORDIAL LEADS [QRS DEFLECTION < 1.0 mV IN CHEST LEADS] PROBABLE INFERIOR MYOCARDIAL INFARCTION , PROBABLY OLD [35 ms Q WAVE IN II/aVF] ANTEROLATERAL MYOCARDIAL INFARCTION , PROBABLY OLD Compared to ECG 12/06/2022 00:24:06 Left-axis deviation now present Low QRS voltage now present Sinus rhythm no longer present T-wave abnormality no longer present Possible ischemia no longer present Myocardial infarct finding still present Electronically Signed On 02-03-2023 8:10:24 CDT by Annia Cohen M.D. [id number]
[2023-02-02] MEDS: ondansetron 2 mg/ML SDV 2 mL 4 MG IVP (21:06)
[2023-02-02 21:17] LABS: Troponin T (5th) Once 20 ng/L (0-10)
[2023-02-02 21:19] LABS: Alanine Aminotransferase 27 U/L (0-33); Albumin Level 4.6 g/dL (3.5-5.2); Alkaline Phosphatase 79 U/L (35-105); Aspartate Amino Transferase 24 U/L (0-32); Blood Urea Nitrogen 10 mg/dL (6-20); Calcium 9.2 mg/dL (8.5-10.5); Carbon Dioxide 23 mmol/L (22-29); Chloride 100 mmol/L (98-107); Globulin 3.2 g/dL (1.3-4.6); Glomerular Filtration Rate 46.8 mL/min (90-130); Glucose 149 mg/dL (65-115); Lipase 7 U/L (13-60); Osmolality Calculated 294 mOsm/kg (285-295); Sodium 141 mmol/L (136-145); Total Bilirubin 0.5 mg/dL (0.15-1.2); Total Protein 7.8 g/dL (6.6-8.7)
[2023-02-02] MEDS: iohexol 350 mg/mL 500 mL Btl (per mL) IV (21:24)
[2023-02-02 21:26] LABS: Magnesium 1.8 mg/dL (1.7-2.3)
[2023-02-02] MEDS: sodium chloride 0.9% 1,000 ML 999 ML IV ×2 (21:45→22:59)
[2023-02-02 22:00] VITALS: BP 153/107; PULSE 117
[2023-02-02 22:07] LABS: Lactic Sepsis W/Reflex 3.3 mmol/L (0.5-2.2)
--- NOTE | 2023-02-02 22:12 | W.ED.ABDPA2 ---
HPI - Abdominal Pain General: Chief Complaint: Abdominal Pain Stated Complaint: Abd pain Time Seen by Provider: 02/02/23 20:52 History of Present Illness: 52-year-old female presents emergency room with abdominal pain since last night. She described the pain as sharp sensation with severity of 7 out of 10 few hours ago. She took 2 Percocet and upon present emergency room her pain is subsided significantly only revealed some nausea and 3 episode of vomiting today. Blood or coughing up blood. Further reviews that she had gallbladder surgery done about 6 weeks ago. Denies any dysuria, hematuria, bloody stool, dark stool, fever or chills. No known sick contact recent foreign travel. Associated Symptoms: Reports nausea; Denies belching, bloating, change in bowel habits, coffee ground emesis, constipation, GI cramping, diarrhea, dysuria, excessive flatus, heartburn, hematuria, hematemesis, fecal incontinence and vomiting Review of Systems General: Reports: 10 or more systems reviewed and unremarkable except in HPI and below Resp: Denies: dyspnea, productive cough, non-productive cough, wheezing, stridor, pain on inspiration or change in phlegm color GI: Reports: abdominal pain and nausea; Denies: vomiting, hematemesis, coffee ground emesis, dysphagia, heartburn, early satiety, diarrhea, constipation, bloating, GI cramping, belching, excessive flatus, fecal incontinence, change in bowel habits, pain on defecation or rectal pain : Denies: flank pain, difficulty voiding, dysuria, urinary frequency, urinary urgency, urinary hesitancy, dribbling, nocturia, oliguria, urinary incontinence or hematuria Skin/Breast: Denies: rash, pruritus, erythema, photosensitivity or skin pain Psych: Denies: anxiety, depression, mood swings, panic attacks, sleeping less, sleeping more, hopelessness, loss of interest, change in appetite, irritability or paranoia PFS ED PFSH: Medical History Anxiety disorder Asthma, mild intermittent, well-controlled Encounter for long-term opiate analgesic use Encounter for tobacco use cessation counseling Fibromyalgia Hematuria Hypertension Hypothyroidism Hx allergy to all thyroid medication but has been through desensitization of levothyroxine. Major depressive disorder, recurrent, moderate Medication-induced movement disorder Mild intermittent asthma with acute exacerbation Opioid contract exists Post-traumatic stress disorder, chronic Psychiatric care Seasonal allergies Smoker Treatment-resistant depression Surgical History H/O thyroidectomy Family History Mother Cancer Family/Other Heart disease Social History Smoking and tobacco status: former smoker Alcohol intake: never Desire information about alcohol rehabilitation?: No Substance/Drug Use: never Marital status: / Current occupational status: disabled Female Reproductive History: Spontaneous abortions: No Physical Exam Const: COMMON NORMALS: no acute distress, average body habitus, patient oriented x3, no limitations, healthy appearing, alert and well nourished Neck/C-Spine: COMMON NORMALS: full ROM, no lymphadenopathy, supple, no meningeal signs, no JVD, Thyroid normal and No carotid bruits GENERAL: Yes normal visual inspection, No JVD and No submandibular swelling THYROID: Thyroid normal CAROTIDS: Yes normal carotid upstroke, No bounding pulses, No bruit and No Carotid tenderness present Lymph: LYMPHATIC: no lymphadenopathy noted Chest: CHEST: Yes abnormal inspection of the chest, Yes Symmetrical chest wall rise and No localized rib tenderness with anteroposterior compression Resp: COMMON NORMALS: normal respiratory effort, No retractions and No use of accessory muscles Cardio: COMMON NORMALS: no JVD, regular rhythm, S1 normal heart sound present, S2 normal heart sound present and Peripheral pulses 2+ throughout PALPATION: normal PMI RATE: tachycardic RHYTHM: regular rhythm HEART SOUNDS: S1 normal heart sound present and S2 normal heart sound present PERIPHERAL PULSES: Peripheral pulses 2+ throughout GI: COMMON NORMALS: Soft to palpation INSPECTION: Yes normal to inspection, No abdominal wall ecchymosis, No Abdominal wall edema and No Anasarca AUSCULTATION: Yes normoactive bowel sounds PALPATION: Yes Soft to palpation and Yes Tenderness to palpation present (GI) (upper abd ) PERCUSSION: normal to percussion Extremity: COMMON NORMALS: normal to inspection, full ROM, capillary refill normal, no joint enlargement, no clubbing, cyanosis or edema, no calf tenderness and no pedal edema Neuro: COMMON NORMALS: patient oriented x3 SENSORIUM/ORIENTATION: Yes alert MENINGEAL SIGNS: Yes no meningeal signs Skin: COMMON NORMALS: no rashes or lesions noted, no wounds, turgor normal, no jaundice, no petechiae and no mottling NARRATIVE SKIN EXAM: Leukocytes with normal healing no acute signs of infection. GENERAL SKIN EXAM: no rashes or lesions noted and turgor normal Course ED course: Given the presenting symptoms of tachycardia PE was considered but according to the Wells criteria patient was given 1.5 for tachycardia no clinical signs of DVT, since surgery was urine for weeks. No prior DVT, no hemoptysis no active malignancy within the past 6 months the last likely diagnosis. Was given total of 1.5 was a low risk for PE. Reevaluation(s): Reevaluation #1: At 10 PM repeat EKG was being done. Patient was reassessed and reexamined still denies any pain at this time. On the monitor patient still tachycardic decreased rate. No acute distress. Reevaluation #2: Patient tolerated improved significantly with IV fluid. Patient given IV antibiotics. Will discharge home after the IV antibiotics and IV potassium. Will discharge home with oral antibiotics with close follow-up PCP. Was told to return to emergency room if symptoms persist or worsen within the next 12 to 24 hours. Consultations: Consultation #1: Discussed patient with the hospitalist. Discussed the lab findings, CT findings EKG findings and lactic acid findings with her. She recommended discharge with oral antibiotics. Consultation #2: Upon reassessment patient was still tachycardic and having abdominal pain.. Discussed patient with the hospitalist again and we decided admit patient for further evaluation and treatment. CT scan was canceled due to the fact the patient just had contrast was CT abdomen pelvis. Vital Signs: Vital signs: Vital Signs Temperature 97.9 F 02/04/23 07:56 Pulse Rate 92 02/04/23 07:56 Respiratory Rate 16 02/04/23 07:56 Blood Pressure 138/83 02/04/23 07:56 Pulse Oximetry 94 02/04/23 07:56 Oxygen Delivery Me thod Room Air 02/04/23 07:53 MDM - Abdominal Pain Medical Decision Making Patient made comfortable emergency room. Patient was given IV potassium, IV fluid. Discussed lab finding with the patient. CT scan was ordered to rule out acute abdomen disease. Differential Diagnosis Likely abdominal pain, acute appendicitis, calculus of kidney, constipation, diverticulitis, endometriosis, gastroenteritis, pancreatitis and small bowel obstruction (, Coronary artery disease, pneumonia, bronchitis, electrolyte abnormalities) Lab Data 02/04/23 03:30 02/04/23 03:30 Labs/Radiology: Radiology Impressions Abdomen/Pelvis CT 02/02/23 20:52 IMPRESSION: 1. Hepatic steatosis. 2. Status post cholecystectomy. 3. Pancreatic atrophy. 4. Mild thickening of the colonic milan may represent colitis in the appropriate clinical setting. Clinical correlation is recommended. 5. Mild thickening of the bladder milan. The urinary bladder is however partially empty. Please correlate with urine analysis. COMMENTS: Consistent with the [employer]'s Incidental Findings Committee white paper (J Am Felicita Radiol 2018): Any incidental renal lesion less than 1 cm or classified as too small to characterize, or any incidental cystic renal lesion characterized as simple-appearing, is likely benign. No follow-up imaging is recommended for these lesions per consensus recommendations based on imaging criteria. Laboratory Results WBC 16.5 10^3/uL (4.0-10.0) H 02/02/23 20:47 RBC 5.19 10^6/uL (4.1-5.3) 02/02/23 20:47 Hgb 15.7 g/dL (11.5-15.3) H 02/02/23 20:47 Hct 47.5 % (37.0-47.0) H 02/02/23 20:47 MCV 91.5 fl (81-99) 02/02/23 20:47 MCH 30.3 pg (28.0-34.0) 02/02/23 20:47 MCHC 33.1 g/dL (30.0-36.0) 02/02/23 20:47 RDW 12.7 % (12.1-15.1) 02/02/23 20:47 Plt Count 316 10^3/cmm (130-400) 02/02/23 20:47 MPV 11.9 fL (7.4-10.4) H 02/02/23 20:47 Neut % (Auto) 72.0 % 02/02/23 20:47 Lymph % (Auto) 21.1 % 02/02/23 20:47 [place] % (Auto) 5.5 % 02/02/23 20:47 Eos % (Auto) 0.3 % 02/02/23 20:47 Baso % (Auto) 0.6 % 02/02/23 20:47 Neut # (Auto) 11.90 10^3/uL (1.8-7.7) H 02/02/23 20:47 Lymph # (Auto) 3.5 10^3/uL (0.8-4.8) 02/02/23 20:47 [place] # (Auto) 0.9 10^3/uL (0.2-0.9) 02/02/23 20:47 Eos # (Auto) 0.1 10^3/uL (0.0-0.8) 02/02/23 20:47 Baso # (Auto) 0.1 10^3/uL (0.0-0.1) 02/02/23 20:47 Nucleated RBC % (auto) 0 % 02/02/23 20:47 Nucleated RBCs # 0.0 /100WBC 02/02/23 20:47 D-Dimer 0.84 ug/mIFEU (0-0.59) H 02/02/23 20:47 Sodium 141 mmol/L (136-145) 02/02/23 20:47 Potassium 3.0 mmol/L (3.5-5.1) L 02/02/23 20:47 Chloride 100 mmol/L (98-107) 02/02/23 20:47 Carbon Dioxide 23 mmol/L (22-29) 02/02/23 20:47 Anion Gap 21.0 (5-19) H 02/02/23 20:47 BUN 10 mg/dL (6-20) 02/02/23 20:47 Creatinine 1.2 mg/dL (0.5-0.9) H 02/02/23 20:47 GFR Calculation 46.8 mL/min (90-130) L 02/02/23 20:47 Glucose 149 mg/dL (65-115) H 02/02/23 20:47 Calculated Osmolality 294 mOsm/kg (285-295) 02/02/23 20:47 Lactic Acid 3.3 mmol/L (0.5-2.2) H 02/02/23 20:47 Lactic Acid (Sepsis) 1.2 mmol/L (0.5-2.2) 02/02/23 23:41 Calcium 9.2 mg/dL (8.5-10.5) 02/02/23 20:47 Magnesium 1.8 mg/dL (1.7-2.3) 02/02/23 20:47 Total Bilirubin 0.5 mg/dL (0.15-1.2) 02/02/23 20:47 AST 24 U/L (0-32) 02/02/23 20:47 ALT 27 U/L (0-33) 02/02/23 20:47 Alkaline Phosphatase 79 U/L (35-105) 02/02/23 20:47 Troponin T Gen 5 ng/L 20 ng/L (0-10) H 02/02/23 20:47 Troponin T 120 Minute 15.55 ng/L (0-10) H 02/02/23 22:28 Delta Troponin T -4.45 ABS# (0-10) L 02/02/23 22:28 Total Protein 7.8 g/dL (6.6-8.7) 02/02/23 20:47 Albumin 4.6 g/dL (3.5-5.2) 02/02/23 20:47 Globulin 3.2 g/dL (1.3-4.6) 02/02/23 20:47 Lipase 7 U/L (13-60) L 02/02/23 20:47 EKG Data EKG 1: Interpretation: Rate of 129 sinus tachycardia with left axis deviation, TX interval [address] changes Discharge Plan Discharge Patient Disposition: Admitted As Inpatient Admit Provider: Irene Steiner Clinical Impression: Hypokalemia, Abdominal pain, Atrial tachycardia, Colitis Condition: Stable Discharge Diet: Advance as tolerated Discharge Activity: Resume usual activity Coding Level of Care Code ED Human Resources Operations Director for Michelle Parikh
[2023-02-02 22:13] LABS: D Dimer 0.84 ug/mIFEU (0-0.59)
[2023-02-02] MEDS: potassium chloride premix 100 ML 50 MEQ IV (22:15)
--- NOTE | 2023-02-02 22:22 | ECG_ITS ---
[facility] Test Date: 2023-02-02 Pat Name: Charlee Anderson Department: Room: Gender: Female Sales Person: : 1970 Requested By: Bhupinder Mckeon Order Number: [id number] Rossana MD: Annia Cohen M.D. Measurements Intervals [place] Rate: 117 P: 35 [place]: 159 QRS: -44 QRSD: 86 T: 52 QT: 325 QTc: 454 Interpretive Statements SINUS TACHYCARDIA LEFT AXIS DEVIATION [QRS AXIS < -30] LOW QRS VOLTAGE IN PRECORDIAL LEADS [QRS DEFLECTION < 1.0 mV IN CHEST LEADS] PROBABLE INFERIOR MYOCARDIAL INFARCTION , PROBABLY OLD [35 ms Q WAVE IN II/aVF] ANTEROLATERAL MYOCARDIAL INFARCTION , PROBABLY OLD [40+ ms Q WAVE IN I/aVL/V3-V6] Compared to ECG 12/06/2022 00:24:06 Left-axis deviation now present Low QRS voltage now present Sinus rhythm no longer present T-wave abnormality no longer present Possible ischemia no longer present Myocardial infarct finding still present Electronically Signed On 02-03-2023 8:09:52 CDT by Annia Cohen M.D. [id number]
[2023-02-02 22:46] LABS: Troponin 5 2HR 15.55 ng/L (0-10)
[2023-02-02 23:00] VITALS: BP 139/105; PULSE 116
[2023-02-02 23:01] LABS: Troponin 5 2HR Delta -4.45 ABS# (0-10)
--- NOTE | 2023-02-02 23:31 | ECG_ITS ---
[facility] Test Date: 2023-02-03 Pat Name: Charlee Anderson Department: Room: 261 Gender: Female Assisted Living Associate: : 1970 Requested By: Bhupinder Mckeon Order Number: [id number] Rossana MD: Annia Cohen M.D. Measurements Intervals [place] Rate: 111 P: 52 [place]: 167 QRS: -36 QRSD: 86 T: 4 QT: 335 QTc: 456 Interpretive Statements SINUS TACHYCARDIA LEFT AXIS DEVIATION [QRS AXIS < -30] LOW QRS VOLTAGE IN PRECORDIAL LEADS [QRS DEFLECTION < 1.0 mV IN CHEST LEADS] INFERIOR MYOCARDIAL INFARCTION , PROBABLY OLD [40+ ms Q WAVE AND/OR ST/T ABNORMALITY IN II/aVF] ANTEROLATERAL MYOCARDIAL INFARCTION , PROBABLY OLD [40+ ms Q WAVE IN I/aVL/V3-V6] Compared to ECG 02/02/2023 22:22:11 No significant changes Electronically Signed On 02-03-2023 8:11:15 CDT by Annia Cohen M.D. [email or web address]
[2023-02-02 23:41] LABS: Reflex Lactate Order REFLEX LACTIC ORDERD
[2023-02-02] MEDS: ciprofloxacin 400 MG/200 ML PREMIX 200 MG IV (23:44)
[2023-02-03] VITALS (16 sets, daily range): BP systolic 104–140; BP diastolic 71–90; PULSE 93–118; RESP 14–24; TEMP 36.1–36.9; O2SAT 95–98
[2023-02-03] MEDS: enoxaparin 120 mg/0.8 mL Syringe SUBCUT (00:23)
[2023-02-03] MEDS: HYDROmorphone 1 mg/mL INJ 1 mL IVP (00:23)
[2023-02-03 00:26] LABS: Lactic Acid level (Lactate) 1.2 mmol/L (0.5-2.2)
[2023-02-03] MEDS: sodium chloride 0.9% 1,000 ML 999 ML IV (01:01)
--- NOTE | 2023-02-03 01:16 | PC.NURSE ---
Addendum entered by Melany Ho LPN 02/03/23 01:27: Denies fever/chills Original Note: ADMIT NOTE Pt received to room from ED at 0045. Alert, oriented and very pleasant. Gives history of abd pain starting yesterday in he upper medial abd and it gradually became worse with movement down into lower left abd. Decided to come to the ED. Pain med given in the ED has decreased pain to a 2 . Abd is soft with tenderness. Also reports nausea with at least 5 episodes of vomiting. Is NPO now and pt aware. IV bolus of NS 1 liter started. Received 2 liters already as well as IV Cipro. Says she has not urinated yet. Has hat in BR to use for measuring output and needs UA sent. Does tell me she had a bowel movement today that contained blood Says does not think it was from her hemorrhoids. History of choley 6 weeks ago. RN completing admission assessment
--- NOTE | 2023-02-03 01:22 | P.HP_ITS ---
Providers/Chief Complaint Admitting Physician: Irene Steiner MD Primary Care Provider: Corazon Cardona MD Chief Complaint: Abd pain History of Present Illness Charlee Anderson is a 52 year old female who underwent laparoscopic cholecystectomy in [place] approximately 6 weeks ago. States that her gallbladder was very inflamed when it was removed like a stone . She received some antibiotics. There were no immediate perioperative complications. She returned home and was clinically improving until 2 days ago when she started to develop abdominal pain. States that pain was located in the epigastric and the right upper quadrant area and started building up in intensity over 2 days. She also experienced multiple episodes of nausea and vomiting and 1 episode of bloo dy diarrhea yesterday. Her diarrhea has since resolved. In the emergency room she was noted to have leukocytosis, elevated lactate and noted to have sinus tachycardia. She was unable to tolerate any p.o. intake and was therefore admitted. CT of her abdomen and pelvis showed fatty changes of the liver. Interval cholecystectomy. No ductal dilatation. There was diffuse fatty atrophy of the pancreas without any ductal dilatation. Note was made of thickening of colonic milan which may be associate financial representative of colitis. She has additionally also had some dysuria over the past 4 days. Review of Systems General: Reports: 10 or more systems reviewed and unremarkable except in HPI and below Const: Denies: fever(s), chills or body aches Eyes: Denies: change in vision, blurry vision or photophobia ENMT: Reports: hoarseness; Denies: throat pain, enlarged tonsils, odynophagia or nasal congestion Card: Denies: chest pain, palpitations, irregular heart rhythm, edema, swelling of feet/ankles, lightheadedness, pre-syncope, dyspnea on exertion or orthopnea Resp: Denies: dyspnea, productive cough, non-productive cough, wheezing, stridor, pain on inspiration, change in phlegm color, hemoptysis or chest congestion GI: Denies: abdominal pain, nausea, vomiting, hematemesis, coffee ground emesis, dysphagia, heartburn, diarrhea, constipation, GI cramping, change in stool character, hematochezia or melena : Denies: flank pain, difficulty voiding, dysuria, urinary frequency, urinary urgency, urinary hesitancy or hematuria Musc: Denies: neck pain, back pain, extremity pain, joint swelling, joint warmth or deformity Neuro: Denies: headache(s), numbness in extremities, weakness in extremities, sensory changes, difficulty walking, frequent falls, dizziness, vertigo, behavioral changes, Slurred speech present or seizure-like activity Psych: Denies: anxiety, depression, suicidal ideation or homicidal ideation Endo: Denies: polyuria, polydipsia, tired all the time, cold intolerance or hot flashes Bossman/Lymph: Denies: easy bruising or easy bleeding Medications/Allergies Home Medications Medication Instructions Recorded Confirmed Last Taken Type tramadol 50 mg tablet 100 mg PO Q6H PRN pain 05/31/22 12/22/22 06/08/22 History acetaminophen 325 mg capsule 650 mg PO QID PRN Pain 06/08/22 12/22/22 Unknown History (Tylenol) hydroxyzine HCl 25 mg tablet 25 mg PO TID PRN itching or 10/11/22 12/22/22 Unknown Rx anxiety #90 tabs albuterol sulfate 2.5 mg/3 mL 2.5 mg (3 mL) inhalation Q4H PRN 11/10/22 12/22/22 Unknown Rx (0.083 %) solution for nebulization Shortness Of Breath #180 mL albuterol sulfate 90 mcg/actuation 90 mcg inhalation DAILY #8.5 grams 11/10/22 12/22/22 Unknown Rx aerosol inhaler (Ventolin HFA) gabapentin 800 mg tablet 800 mg PO TID 30 days #90 tabs 11/10/22 12/22/22 Unknown Rx ipratropium 0.5 mg-albuterol 3 mg 3 ml inhalation Q4H PRN shortness 11/10/22 12/22/22 Unknown Rx (2.5 mg base)/3 mL nebulization of breath or wheezing #180 mL soln levothyroxine 175 mcg tablet 175 mcg PO DAILY 90 days #90 tabs 11/10/22 12/22/22 Unknown Rx (Euthyrox) metoprolol succinate 100 mg 100 mg PO DAILY 90 days #90 tabs 11/10/22 12/22/22 Unknown Rx tablet,extended release 24 hr omeprazole 40 mg capsule,delayed 40 mg PO DAILY 90 days #90 caps 11/10/22 12/22/22 Unknown Rx release ondansetron 4 mg disintegrating 4 mg PO Q8H PRN nausea and 11/10/22 12/22/22 Unknown Rx tablet vomiting #30 tabs triamcinolone acetonide 0.1 % 1 applic topical BID #80 grams 11/10/22 12/22/22 Unknown Rx topical ointment duloxetine 60 mg capsule,delayed 60 mg PO DAILY #30 caps 12/27/22 01/31/23 Unknown Rx release (Cymbalta) bupropion HCl 150 mg 24 hr tablet, 150 mg PO QAM #30 tabs 01/27/23 01/27/23 Un known Rx extended release (Wellbutrin XL) ciprofloxacin HCl 500 mg tablet 500 mg PO Q12H #14 tabs 02/02/23 Unknown Rx (Cipro) metronidazole 500 mg tablet 500 mg PO BID 7 days #14 tabs 02/02/23 Unknown Rx potassium chloride 10 mEq 10 meq PO BID #20 caps 02/02/23 Unknown Rx capsule,extended release Allergies Allergy/AdvReac Type Severity Reaction Status Date / Time trazodone Allergy Intermediate ALGY-Difficulty Verified 12/11/22 16:42 Swallowing levothyroxine Allergy she takes Verified 12/11/22 16:42 this daily but will cause a rash/itching morphine AdvReac nausea, Verified 12/11/22 16:42 vomiting PFSH Acute PFSH: Medical History Anxiety disorder Asthma, mild intermittent, well-controlled Encounter for long-term opiate analgesic use Encounter for tobacco use cessation counseling Fibromyalgia Hematuria Hypertension Hypothyroidism Hx allergy to all thyroid medication but has been through desensitization of levothyroxine. Major depressive disorder, recurrent, moderate Medication-induced movement disorder Mild intermittent asthma with acute exacerbation Opioid contract exists Post-traumatic stress disorder, chronic Psychiatric care Seasonal allergies Smoker Treatment-resistant depression Surgical History H/O thyroidectomy Family History Mother Cancer Family/Other Heart disease Social History Smoking and tobacco status: former smoker Alcohol intake: never Desire information about alcohol rehabilitation?: No Substance/Drug Use: never Marital status: / Current occupational status: disabled Female Reproductive History: Spontaneous abortions: No Vitals/I&O/Wt Last Vital Signs Temp 98.5 F 02/03/23 00:01 Pulse 118 H 02/03/23 00:32 Resp 16 02/03/23 00:32 BP 130/90 02/03/23 00:32 Pulse Ox 96 02/03/23 00:01 O2 Del Method Room Air 02/03/23 01:03 02/02/23 02/02/23 02/03/23 14:59 22:59 06:59 Intake Total 200 / 200 Balance 200 / 200 Weight last 48 hrs Weight 122.47 kg Physical Exam Narrative: General: No acute distress, AO x3 HEENT: PERRLA, pupils bilaterally equal and reactive, pallors not present Chest: Normal vesicular breath sounds, no added sounds, equal good air entry bilaterally CVS: S1-S2 regular, no murmurs, no tachycardia, no gallops, no rubs Abdomen: Soft, nontender, no organomegaly, bowel sounds present, healing lap [place] scars Neuro: No focal deficits, no facial deformity, AO x3, power 5/5 in all limbs Data 02/02/23 20:47 02/02/23 20:47 Other data: Radiology Impressions Abdomen/Pelvis CT 02/02/23 20:52 IMPRESSION: 1. Hepatic steatosis. 2. Status post cholecystectomy. 3. Pancreatic atrophy. 4. Mild thickening of the colonic milan may represent colitis in the appropriate clinical setting. Clinical correlation is recommended. 5. Mild thickening of the bladder milan. The urinary bladder is however partially empty. Please correlate with urine analysis. COMMENTS: Consistent with the [employer]'s Incidental Findings Committee white paper (J Am Felicita Radiol 2018): Any incidental renal lesion less than 1 cm or classified as too small to characterize, or any incidental cystic renal lesion characterized as simple-appearing, is likely benign. No follow-up imaging is recommended for these lesions per consensus recommendations based on imaging criteria. Laboratory Results WBC 16.5 10^3/uL (4.0-10.0) H 02/02/23 20:47 RBC 5.19 10^6/uL (4.1-5.3) 02/02/23 20:47 Hgb 15.7 g/dL (11.5-15.3) H 02/02/23 20:47 Hct 47.5 % (37.0-47.0) H 02/02/23 20:47 MCV 91.5 fl (81-99) 02/02/23 20:47 MCH 30.3 pg (28.0-34.0) 02/02/23 20:47 MCHC 33.1 g/dL (30.0-36.0) 02/02/23 20:47 RDW 12.7 % (12.1-15.1) 02/02/23 20:47 Plt Count 316 10^3/cmm (130-400) 02/02/23 20:47 MPV 11.9 fL (7.4-10.4) H 02/02/23 20:47 Neut % (Auto) 72.0 % 02/02/23 20:47 Lymph % (Auto) 21.1 % 02/02/23 20:47 [place] % (Auto) 5.5 % 02/02/23 20:47 Eos % (Auto) 0.3 % 02/02/23 20:47 Baso % (Auto) 0.6 % 02/02/23 20:47 Neut # (Auto) 11.90 10^3/uL (1.8-7.7) H 02/02/23 20:47 Lymph # (Auto) 3.5 10^3/uL (0.8-4.8) 02/02/23 20:47 [place] # (Auto) 0.9 10^3/uL (0.2-0.9) 02/02/23 20:47 Eos # (Auto) 0.1 10^3/uL (0.0-0.8) 02/02/23 20:47 Baso # (Auto) 0.1 10^3/uL (0.0-0.1) 02/02/23 20:47 Nucleated RBC % (auto) 0 % 02/02/23 20:47 Nucleated RBCs # 0.0 /100WBC 02/02/23 20:47 D-Dimer 0.84 ug/mIFEU (0-0.59) H 02/02/23 20:47 Sodium 141 mmol/L (136-145) 02/02/23 20:47 Potassium 3.0 mmol/L (3.5-5.1) L 02/02/23 20:47 Chloride 100 mmol/L (98-107) 02/02/23 20:47 Carbon Dioxide 23 mmol/L (22-29) 02/02/23 20:47 Anion Gap 21.0 (5-19) H 02/02/23 20:47 BUN 10 mg/dL (6-20) 02/02/23 20:47 Creatinine 1.2 mg/dL (0.5-0.9) H 02/02/23 20:47 GFR Calculation 46.8 mL/min (90-130) L 02/02/23 20:47 Glucose 149 mg/dL (65-115) H 02/02/23 20:47 Calculated Osmolality 294 mOsm/kg (285-295) 02/02/23 20:47 Lactic Acid 3.3 mmol/L (0.5-2.2) H 02/02/23 20:47 Lactic Acid (Sepsis) 1.2 mmol/L (0.5-2.2) 02/02/23 23:41 Calcium 9.2 mg/dL (8.5-10.5) 02/02/23 20:47 Magnesium 1.8 mg/dL (1.7-2.3) 02/02/23 20:47 Total Bilirubin 0.5 mg/dL (0.15-1.2) 02/02/23 20:47 AST 24 U/L (0-32) 02/02/23 20:47 ALT 27 U/L (0-33) 02/02/23 20:47 Alkaline Phosphatase 79 U/L (35-105) 02/02/23 20:47 Troponin T Gen 5 ng/L 20 ng/L (0-10) H 02/02/23 20:47 Troponin T 120 Minute 15.55 ng/L (0-10) H 02/02/23 22:28 Delta Troponin T -4.45 ABS# (0-10) L 02/02/23 22:28 Troponin T Hi Sens 6Hr 13.98 ng/L (0-10) H 02/03/23 01:30 Troponin T Hi Sens 6Hr Delta -6.02 ng/L (0-12) L 02/03/23 01:30 Total Protein 7.8 g/dL (6.6-8.7) 02/02/23 20:47 Albumin 4.6 g/dL (3.5-5.2) 02/02/23 20:47 Globulin 3.2 g/dL (1.3-4.6) 02/02/23 20:47 Lipase 7 U/L (13-60) L 02/02/23 20:47 A&P Assessment and plan (1) Colitis: 52-year-old lady with recent cholecystectomy 6 weeks ago presenting today to the hospital with chief complaints of abdominal pain nausea vomiting and 1 episode of bloody diarrhea yesterday. Unable to currently tolerate any p.o. intake. CT abdomen pelvis with signs of colitis Start empiric antibiotic coverage with piperacillin/tazobactam Check C. difficile, enteric bacterial PCR Status post recent cholecystectomy, no intra-abdominal abscess or collections in the gallbladder fossa Normal lipase, no signs of pancreatitis. Pending blood culture Check UA and urine culture given symptoms of dysuria. N.p.o. for bowel rest IV fluid normal saline at 100 cc an hour (2) Hypokalemia: Likely related to dehydration from GI losses Supplement with 40 mEq IV KCl Plan History of mild intermittent asthma, not currently exacerbated: Albuterol as needed History of depression on multiple medications, her home medications need to be confirmed before being resumed. Attestations Medical Necessity Statement*: Anticipate greater than 2 midnight stay for IV antibiotics, IV fluids, currently unable to tolerate any p.o. intake. Coding Level of Care Code Acute Code for [facility] Diagnoses Colitis K52.9 Hypokalemia E87.6
[2023-02-03] MEDS: sodium chloride 0.9% 1,000 ML 125 ML IV ×3 (02:05→19:07)
[2023-02-03 02:09] LABS: Troponin 5 6HR 13.98 ng/L (0-10)
[2023-02-03 02:39] LABS: Troponin 5 6HR Delta -6.02 ng/L (0-12)
[2023-02-03] MEDS: piperacillin-tazobactam 3.375 GM in sodium chloride 0.9% (plus) 50 ML IV ×3 (04:42→20:21)
[2023-02-03 05:30] LABS: Add Urine Microscopic? YES; Bilirubin Urine Neg (Negative); Blood Urine 3+ (Negative); Glucose Urine UA Norm (Normal); Ketones Urine 1+ (Negative); Leukocyte Esterase Urine 2+ (Negative); Nitrate Urine Negative (Negative); Protein Urine 1+ (Negative); Specific Gravity, Urine 1.005 (1.005-1.030); Squamous Epithelial Cell Urine 15-25 /hpf (0-5); Urine Appearance Hazy (CLEAR); Urine Color Yellow (Yellow); Urobilinogen Urine 1 mg/dL (Negative); WBC Urine 15-25 /hpf (0-5); pH Urine 5 (5-7)
[2023-02-03 05:31] LABS: Add Urine Culture? No; Bacteria Urine 2+ /hpf; Mucus Urine 2+ /hpf
[2023-02-03] MEDS: HYDROmorphone 1 mg/mL INJ 1 mL 0.5 MG IVP ×5 (10:08→23:40)
[2023-02-03] MEDS: nystatin powder 15 gm Btl 1 APPLIC TOPICAL ×2 (10:13→17:51)
[2023-02-03] MEDS: ondansetron 2 mg/ML SDV 2 mL 4 MG IVP ×2 (10:15→17:59)
--- NOTE | 2023-02-03 10:37 | PM.MISC ---
Miscellaneous Note Purpose of Documentation: Patient was stating her pain has not improved significantly She is in pain, no active emesis However she stating that pain is slightly better as compared to time of admission Distended abdomen, tenderness on deep palpation No guarding rigidity or signs of peritonitis Patient claims looks dehydrated No signs of edema S1, S2 Currently on room Plan Increase the dose of opioids because she is in pain I will keep her n.p.o. Continue antibiotics In case of further worsening we might have to repeat the CT scan of abdomen to make sure there is no further aggravation such as perforation or abscess formation Patient is denying dysuria
--- NOTE | 2023-02-03 11:06 | PC.PHAR ---
Patient states she no longer takes the following medications: Albuterol sulf.2.5/3ml, Ventolin hfa, Triamcinolone Acet. 0.1%, Amantadine 100 mg, SMZ/TmP ds,Auvelity 45-105
[2023-02-03] MEDS: aluminum-mag hydrox-simethicon 30 ML, sucralfate oral liq 1 GM PO (11:17)
[2023-02-03] MEDS: lidocaine 1% 5 ML in potassium chloride premix 100 ML 52.5 ML IV (11:18)
[2023-02-03] MEDS: oxyCODONE 5 mg IR Tab/Cap 10 MG PO ×3 (11:19→19:05)
[2023-02-03 11:39] LABS: Alanine Aminotransferase 25 U/L (0-33); Albumin Level 3.6 g/dL (3.5-5.2); Alkaline Phosphatase 65 U/L (35-105); Anion Gap 18.3 (5-19); Aspartate Amino Transferase 29 U/L (0-32); Blood Urea Nitrogen 7 mg/dL (6-20); Calcium 8.1 mg/dL (8.5-10.5); Carbon Dioxide 18 mmol/L (22-29); Chloride 108 mmol/L (98-107); Globulin 3.1 g/dL (1.3-4.6); Glomerular Filtration Rate 57.8 mL/min (90-130); Glucose 97 mg/dL (65-115); Osmolality Calculated 290 mOsm/kg (285-295); Potassium 3.3 mmol/L (3.5-5.1); Sodium 141 mmol/L (136-145); Total Bilirubin 0.4 mg/dL (0.15-1.2); Total Protein 6.7 g/dL (6.6-8.7)
[2023-02-03] MEDS: lidocaine 1% 5 ML in potassium chloride premix 100 ML 50 ML IV (13:56)
[2023-02-04] VITALS (20 sets, daily range): BP systolic 115–176; BP diastolic 68–127; PULSE 82–178; RESP 15–29; TEMP 36.6–37.1; O2SAT 94–98
[2023-02-04] MEDS: oxyCODONE 5 mg IR Tab/Cap 10 MG PO ×5 (01:47→23:21)
[2023-02-04] MEDS: piperacillin-tazobactam 3.375 GM in sodium chloride 0.9% (plus) 50 ML IV ×3 (03:30→20:44)
[2023-02-04] MEDS: sodium chloride 0.9% 1,000 ML 125 ML IV ×2 (03:30→11:44)
[2023-02-04] MEDS: HYDROmorphone 1 mg/mL INJ 1 mL 0.5 MG IVP ×2 (03:31→09:18)
[2023-02-04 03:42] LABS: Basophils % 0.6 %; Eosinophils # 0.1 10^3/uL (0.0-0.8); Eosinophils % 2.2 %; Hematocrit 39.2 % (37.0-47.0); Hemoglobin 12.3 g/dL (11.5-15.3); Lymphocytes # 1.7 10^3/uL (0.8-4.8); Lymphocytes % 27.1 %; Mean Corpuscular HGB Conc 31.4 g/dL (30.0-36.0); Mean Corpuscular Hemoglobin 29.9 pg (28.0-34.0); Mean Corpuscular Volume 95.1 fl (81-99); Mean Platelet Volume 11.8 fL (7.4-10.4); Monocytes # 0.4 10^3/uL (0.2-0.9); Monocytes % 6.1 %; Neutrophils % 63.7 %; Nucleated Red Blood Cells % 0 %; Platelet Count 158 10^3/cmm (130-400); Red Blood Count 4.12 10^6/uL (4.1-5.3); Red Cell Distribution Width 13.2 % (12.1-15.1); White Blood Count 6.3 10^3/uL (4.0-10.0)
[2023-02-04 03:58] LABS: Alanine Aminotransferase 26 U/L (0-33); Albumin Level 3.4 g/dL (3.5-5.2); Alkaline Phosphatase 61 U/L (35-105); Anion Gap 13.3 (5-19); Aspartate Amino Transferase 26 U/L (0-32); Blood Urea Nitrogen 5 mg/dL (6-20); Calcium 7.5 mg/dL (8.5-10.5); Carbon Dioxide 22 mmol/L (22-29); Chloride 112 mmol/L (98-107); Globulin 2.8 g/dL (1.3-4.6); Glomerular Filtration Rate 65.2 mL/min (90-130); Glucose 91 mg/dL (65-115); Osmolality Calculated 295 mOsm/kg (285-295); Potassium 3.3 mmol/L (3.5-5.1); Sodium 144 mmol/L (136-145); Total Bilirubin 0.4 mg/dL (0.15-1.2); Total Protein 6.2 g/dL (6.6-8.7)
[2023-02-04] MEDS: diphenhydrAMINE 25 mg Capsule PO ×2 (05:24→20:44)
[2023-02-04] MEDS: nystatin powder 15 gm Btl 1 APPLIC TOPICAL ×2 (09:20→17:16)
[2023-02-04] MEDS: ondansetron 2 mg/ML SDV 2 mL 4 MG IVP (12:07)
--- NOTE | 2023-02-04 13:09 | P.PN_ITS ---
Subjective Subjective: Pt feeling comfortable as compared to yesterday Pain 11/30 star clear liquids Asked nurse to decrease the rate of IVF No BM yet Vitals/I&O/Wt Last Vital Signs Temp 97.9 F 02/04/23 12:00 Pulse 82 02/04/23 12:00 Resp 16 02/04/23 12:00 BP 162/68 02/04/23 12:00 Pulse Ox 96 02/04/23 12:00 O2 Del Method Room Air 02/04/23 07:53 02/03/23 02/04/23 02/04/23 22:59 06:59 14:59 Intake Total 1155 / 2114.167 1050 / 3164.167 1450 / 1450 Balance 1155 / 2114.167 1050 / 3164.167 1450 / 1450 Weight last 48 hrs Weight 122.47 kg Physical Exam Narrative: pt seems clinically dehydrated ABd soft and w/o peritonitis Mild tenderness on deep palpation S1 S2 Non focal neuro exam Nonfocal neuro exam Doing well on room air Patient does not seem to be in distress, laying supine Data 02/04/23 03:30 02/04/23 03:30 Micro: Microbiology 02/03/23 04:45 Urine Culture - Preliminary Urine,Clean Catch 02/03/23 01:42 Blood Culture - Preliminary Blood NEGATIVE TO DATE 02/03/23 01:30 Blood Culture - Preliminary Blood NEGATIVE TO DATE A&P Assessment and plan (1) Hypokalemia: (2) Abdominal pain: (3) Colitis: (4) Chronic nausea: (5) NAFLD (nonalcoholic fatty liver disease): (6) Treatment-resistant depression: (7) Psoriasis: (8) Chronic GERD: (9) Fibromyalgia: (10) BENJAMIN (obstructive sleep apnea): (11) Diabetes: Qualifiers: Diabetes mellitus type: type 2 Diabetes mellitus terminal make up operator insulin use: without usp use Diabetes mellitus complication status: without complication Qualified Code(s): E11.9 - Type 2 diabetes mellitus without complications Plan Colitis No signs of sepsis improving Abdominal pain No fever or worsening leukocytosis I will decrease her IV fluid rate and let her have clear liquid diet Continue antibiotics Plan to discharge tomorrow if she remains clinically stable She seems to have chronic nausea depression fibromyalgia and GERD history Slowly optimize her medications when she is able to tolerate diet Full code DVT prophylaxis on board Cultures negative Attestations Medical Necessity Statement*: Discharge tomorrow if stable Diagnoses Hypokalemia E87.6 Abdominal pain R10.9 Colitis K52.9 Chronic nausea R11.0 NAFLD (nonalcoholic fatty liver disease) K76.0 Treatment-resistant depression F32.9 Psoriasis L40.9 Chronic GERD K21.9 Fibromyalgia M79.7 BENJAMIN (obstructive sleep apnea) G47.33 Diabetes E11.9 Diabetes mellitus type: type 2 Diabetes mellitus usp insulin use: without terminal make up operator use Diabetes mellitus complication status: without complication
[2023-02-04] MEDS: potassium chloride oral liq 20 mEq/15 mL UDC 40 MEQ PO (18:18)
[2023-02-04] MEDS: sodium chloride 0.9% 1,000 ML 50 ML IV (20:45)
--- NOTE | 2023-02-04 21:52 | ECG_ITS ---
[facility] Test Date: 2023-02-04 Pat Name: Charlee Anderson Department: Room: 261 Gender: Female Presiding Judge: : 1970 Requested By: Camila Mukherjee Order Number: [id number] Rossana MD: Melodie Loza M.D. Measurements Intervals [place] Rate: 178 P: 0 MO: 0 QRS: -1 QRSD: 89 T: 232 QT: 227 QTc: 391 Interpretive Statements SUPRAVENTRICULAR TACHYCARDIA ST DEVIATION AND MODERATE T-WAVE ABNORMALITY, CONSIDER INFERIOR ISCHEMIA [-0.1+ mV T-WAVE IN II/aVF] CRITICAL TEST RESULT Compared to ECG 02/03/2023 00:18:11 T-wave abnormality now present Possible ischemia now present Sinus tachycardia no longer present Left-axis deviation no longer present Myocardial infarct finding no longer present Electronically Signed On 02-05-2023 20:58:18 CDT by Melodie Loza M.D. [id number]
[2023-02-04] MEDS: dilTIAZem 5 mg/mL SDV 5 mL 20 MG IVP (22:07)
[2023-02-04] MEDS: dilTIAZem 5 mg/mL SDV 5 mL 10 MG IVP ×2 (22:18→23:24)
--- NOTE | 2023-02-04 22:21 | ECG_ITS ---
[facility] Test Date: 2023-02-04 Pat Name: Charlee Anderson Department: Room: ICU03 Gender: Female Green Hide Inspector: : 1970 Requested By: Giancarlo Akhtar Order Number: [id number] Rossana MD: Melodie Loza M.D. Measurements Intervals [place] Rate: 131 P: 0 WA: 0 QRS: 9 QRSD: 86 T: 236 QT: 216 QTc: 319 Interpretive Statements SUPRAVENTRICULAR TACHYCARDIA POSSIBLE INFERIOR MYOCARDIAL INFARCTION , OF INDETERMINATE AGE [30 ms Q WAVE IN II/aVF] Diffuse nonspecific T wave changes INTERPRETATION BASED ON A DEFAULT AGE OF 40 YEARS Compared to ECG 02/04/2023 21:51:54 Myocardial infarct finding now present T-wave abnormality no longer present Possible ischemia no longer present Electronically Signed On 02-05-2023 21:00:10 CDT by Melodie Loza M.D. [id number]
--- NOTE | 2023-02-04 22:42 | PC.NURSE ---
Pt began complaining of racing heart, chest, and jaw pain. Got new vitals and performed EKG, result was SVT 170's-180's. Attempted to call Dr. Steiner twice while having pt blow through straw, unable to get Dr. Steiner and pt stated she began feeling like she was going to pass out. HR was 190's. Called rapid response overhead. 30mg cardizem pushed by ICU nurse, HR dropped to 130s. Dr Steiner gave order to transfer to ICU bed 3. Report given to LUKE Girard during transfer to ICU.
[2023-02-04 22:57] LABS: Anion Gap 14.8 (5-19); Blood Urea Nitrogen 3 mg/dL (6-20); Calcium 7.8 mg/dL (8.5-10.5); Carbon Dioxide 23 mmol/L (22-29); Chloride 107 mmol/L (98-107); Glomerular Filtration Rate 65.2 mL/min (90-130); Glucose 90 mg/dL (65-115); Magnesium 1.7 mg/dL (1.7-2.3); Osmolality Calculated 288 mOsm/kg (285-295); Potassium 3.8 mmol/L (3.5-5.1); Sodium 141 mmol/L (136-145)
[2023-02-04 22:58] LABS: Troponin(5th) Baseline 10 ng/L (0-10)
[2023-02-05] VITALS (51 sets, daily range): BP systolic 85–148; BP diastolic 58–125; PULSE 66–152; RESP 7–28; TEMP 36.6–36.9; O2SAT 93–99
--- NOTE | 2023-02-05 00:17 | ECG_ITS ---
[facility] Test Date: 2023-02-05 Pat Name: Charlee Anderson Department: Room: ICU03 Gender: Female Blow Up Operator: : 1970 Requested By: Irene Steiner Order Number: [id number] Reading MD: Melodie Loza M.D. Measurements Intervals [place] Rate: 68 P: 29 DC: 165 QRS: 0 QRSD: 86 T: 28 QT: 413 QTc: 441 Interpretive Statements SINUS RHYTHM INFERIOR MYOCARDIAL INFARCTION , PROBABLY OLD [40+ ms Q WAVE AND/OR ST/T ABNORMALITY IN II/aVF] Compared to ECG 02/04/2023 22:21:49 Supraventricular tachycardia no longer present Myocardial infarct finding still present Electronically Signed On 02-05-2023 21:00:47 CDT by Melodie Loza M.D. [id number]
--- NOTE | 2023-02-05 00:18 | USCV_ITS ---
Justin Charlee Age: 52 Gender: F : 1970 Exam Date: 02/05/2023 11:17 Ordering Phys: Irene Steiner MD Technologist: JASON [place] [facility] [place]: afib BP: / HR: 66 Rhythm: Sinus Technical Quality: Adequate MEASUREMENTS (Male / Female) Normal Values 2D ECHO LV Diastolic Diameter PLAX 6.0 cm 4.2 - 5.9 / 3.9 - 5.3 cm LV Systolic Diameter PLAX 4.5 cm IVS Diastolic Thickness 0.7 cm 0.6 - 1.0 / 0.6 - 0.9 cm IVS Systolic Thickness 1.3 cm LVPW Diastolic Thickness 0.8 cm 0.6 - 1.0 / 0.6 - 0.9 cm LVPW Systolic Thickness 1.3 cm LVOT Diameter 2.0 cm LV Ejection Fraction 2D Teich 48.3 % LV Ejection Fraction MOD 2C 54.0 % LV Ejection Fraction 2C AL 53.9 % LA Diameter 3.3 cm M-MODE Aortic Annulus Diameter 2.6 cm LA Ao Ratio MM 1.4 MV E Point Septal Separation 0.3 cm DOPPLER AV Peak Velocity 123.0 cm/s LVOT Peak Velocity 101.0 cm/s AV Area Cont Eq vti 2.7 cm squared AV Area Cont Eq pk 2.6 cm squared MV Area PHT 4.3 cm squared Mitral E to A Ratio 1.1 MV E' Velocity 49.0 cm/s Mitral E to MV E' Ratio 12.1 Mitral E to LV E' Lateral Ratio 11.0 Mitral E to LV E' Septal Ratio 13.3 TR Peak Velocity 260.0 cm/s TR Peak Gradient 27.0 mmHg TV Peak E Velocity 62.0 cm/s Right Atrial Pressure 3.0 mmHg Pulmonary Artery Systolic Pressu 30.0 mmHg PV Peak Velocity 101.0 cm/s FINDINGS Left Ventricle Normal left ventricular size and systolic function, EF 58 %. No regional wall motion abnormalities. Right Ventricle The right ventricle is normal in size and function. Right Atrium The right atrium is normal in size. Left Atrium The left atrium is normal in size. Mitral Valve No gross abnormalities noted Aortic Valve No gross abnormalities noted Tricuspid Valve Trace tricuspid valve regurgitation. Estimated pulmonary artery peak systolic pressure 30 mmHg Pulmonic Valve No gross abnormalities noted Pericardium No pericardial effusion. Aorta Normal aortic annulus size. IVC The inferior vena cava appears normal. CONCLUSIONS Normal left ventricular size and systolic function, EF 58 %. No regional wall motion abnormalities. Normal cardiac chamber sizes. No significant valvular abnormalities Trace tricuspid valve regurgitation. Estimated pulmonary artery peak systolic pressure 30 mmHg. There is no pericardial effusion. There are no intracardiac masses. No similar previous studies are available for comparison Dr Melodie Loza MD FACC (Electronically Signed) Final Date: 05 February 2023 20:39 S
--- NOTE | 2023-02-05 00:18 | CTR_ITS ---
PROCEDURE INFORMATION: Exam: CTA Chest With Contrast Exam date and time: 02/05/2023 12:57 AM Age: 52 years old Clinical indication: Other: Acute episode of svt; Prior surgery; Surgery date: 1-6 months; Surgery type: Lap [place] 6 weeks ago. Thyroidectomy. Patient HX: Episode of svt with hr over 200. Currently admitted for colitis. Lap [place] six weeks ago. ; Additional info: Evaluate for pe, sbo, patient admitted for colitis, 6 weeks post cholecytectomy. TECHNIQUE: Imaging protocol: Computed tomographic angiography of the chest with contrast. Exam focused on the arteries. 3D rendering (Not supervised by radiologist): MIP and/or 3D reconstructed images were created by the technologist. Radiation optimization: All CT scans at this facility use at least one of these dose optimization techniques: automated exposure control; mA and/or kV adjustment per patient size (includes targeted exams where dose is matched to clinical indication); or iterative reconstruction. Contrast material: OMNI 350; Contrast volume: 100 ml; Contrast route: INTRAVENOUS (IV); REPORTING DATA: Count of CT and Cardiac NM exams in prior 12 months: This patient has received 4 known CTs and 0 known cardiac nuclear medicine studies in the 12 months prior to the current study. COMPARISON: CT chest w con* [id number] 09/14/2016 12:26 PM RADIATION DOSE METRICS: Total DLP (mGy-cm): 1720.49 FINDINGS: Pulmonary arteries: Normal. No pulmonary emboli. Aorta: Normal caliber thoracic aorta. Thyroid: Prior thyroidectomy. Lungs: Mild mosaic attenuation noted throughout both lungs. No airspace disease. Patent tracheobronchial tree. Pleural spaces: Unremarkable. No pneumothorax. No pleural effusion. Heart: Mild cardiomegaly. Lymph nodes: Unremarkable. No enlarged lymph nodes. Diaphragm: Moderate sliding hiatal hernia. Bones/joints: Unremarkable. No acute fracture. Soft tissues: Unremarkable. PROCEDURE INFORMATION: Exam: CT Abdomen And Pelvis With Contrast Exam date and time: 02/05/2023 12:57 AM Age: 52 years old Clinical indication: Other: Acute episode of svt; Prior surgery; Surgery date: 1-6 months; Surgery type: Lap [place] 6 weeks ago. Thyroidectomy. Patient HX: Episode of svt with hr over 200. Currently admitted for colitis. Lap [place] six weeks ago. ; Additional info: Evaluate for pe, sbo, patient admitted for colitis, 6 weeks post cholecytectomy. TECHNIQUE: Imaging protocol: Computed tomography of the abdomen and pelvis with contrast. Radiation optimization: All CT scans at this facility use at least one of these dose optimization techniques: automated exposure control; mA and/or kV adjustment per patient size (includes targeted exams where dose is matched to clinical indication); or iterative reconstruction. Contrast material: OMNI 350; Contrast volume: 100 ml; Contrast route: INTRAVENOUS (IV); REPORTING DATA: Count of CT and Cardiac NM exams in prior 12 months: This patient has received 4 known CTs and 0 known cardiac nuclear medicine studies in the 12 months prior to the current study. COMPARISON: CT abdomen pelvis w con* [id number] 02/02/2023 9:25 PM RADIATION DOSE METRICS: Total DLP (mGy-cm): 1720.49 FINDINGS: Liver: Homogeneous low attenuation throughout the liver is compatible with fatty infiltration. Liver measures 18.8 cm in length. Gallbladder and bile ducts: Prior cholecystectomy. No biliary tree dilation or high-density retained stones appreciated. No abnormal fluid in the gallbladder fossa. Pancreas: Severe fatty atrophy of the pancreas without evidence of inflammation or mass. Spleen: Spleen measures 10.9 cm in length. Adrenal glands: Normal configuration. Kidneys and ureters: Kidneys enhance symmetrically and demonstrate no evidence of mass, calculus, obstruction, or inflammation. Stomach and bowel: Unremarkable. No obstruction. No mural thickening. Appendix: Normal appendix is confirmed. Intraperitoneal space: No free air. No significant fluid collection. Vasculature: Mild aortoiliac calcific atherosclerosis without aneurysm. Lymph nodes: No enlarged lymph nodes. Urinary bladder: Unremarkable as visualized. Reproductive: Physiologic appearance for age. Bones/joints: No fracture or destructive lesion. Soft tissues: Bilateral fat containing indirect inguinal hernias. CT/CT angio chest w abd pel w con IMPRESSION: 1. No findings of acute pulmonary embolism. Mosaic attenuation in each lung may reflect air trapping. No airspace disease. 2. Moderate sliding hiatal hernia. IMPRESSION: 1. No acute abnormality in the abdomen or pelvis. In particular, a normal appendix is confirmed and there is no evidence of urolithiasis. 2. Mildly enlarged fatty liver. No splenomegaly.
[2023-02-05] MEDS: metoprolol tartrate 1 mg/1 mL SDV 5 mL 5 MG IVP ×3 (00:29→22:05)
[2023-02-05] MEDS: HYDROmorphone 1 mg/mL INJ 1 mL 0.5 MG IVP (00:39)
[2023-02-05] MEDS: iohexol 350 mg/mL 500 mL Btl (per mL) IV (01:05)
[2023-02-05 01:57] LABS: Basophils # 0.1 10^3/uL (0.0-0.1); Basophils % 0.9 %; Eosinophils # 0.2 10^3/uL (0.0-0.8); Eosinophils % 4.1 %; Hematocrit 38.3 % (37.0-47.0); Hemoglobin 12.2 g/dL (11.5-15.3); Lymphocytes # 1.9 10^3/uL (0.8-4.8); Lymphocytes % 35.9 %; Mean Corpuscular HGB Conc 31.9 g/dL (30.0-36.0); Mean Corpuscular Volume 94.1 fl (81-99); Mean Platelet Volume 12.6 fL (7.4-10.4); Monocytes # 0.4 10^3/uL (0.2-0.9); Monocytes % 7.4 %; Neutrophils # 2.75 10^3/uL (1.8-7.7); Neutrophils % 51.3 %; Nucleated Red Blood Cells % 0 %; Platelet Count 149 10^3/cmm (130-400); Red Blood Count 4.07 10^6/uL (4.1-5.3); Red Cell Distribution Width 13.1 % (12.1-15.1); White Blood Count 5.4 10^3/uL (4.0-10.0)
--- NOTE | 2023-02-05 01:58 | P.PNCC_ITS ---
Critical Care Event Note The high probability of a clinically significant, sudden or life threatening deterioration of the patient's [] system(s) required my full and direct attention, intervention and personal management. The critical care time is as shown. This time is in addition to time spent performing any reported procedures but includes the following: [x] Data and vital sign review and interpretation [x] Patient assessment, examination and intervention [x] Documentation [x] Medication orders and management Critical Care Time Code activated: No Critical Care Time (min): 45 Additional information about critical care time: Response was called at ~10 PM on 02/04/2023 as patient became tachycardic with heart rate in the 180s. EKG showed SVT versus a flutter per my assessment. ER physician Dr. Mae was already at bedside once rapid response was called. Patient had received 20 mg IV push of Cardizem x2 with heart rate down from 1 80-1 50. Blood pressure 118/72. She was transferred to the ICU and thereafter started on Cardizem infusion. And spite of being on Cardizem infusion at 15 mg/h until 12 a.m., her heart rate continued to be 1 50-1 60. Thereafter she received metoprolol 5 mg IV push at 12:15 AM. At 12:30 AM she converted into normal sinus rhythm at 80 bpm. Blood pressure 120/79. Patient reports that she is experiencing increased right upper quadrant discomfort, feels more distended and has difficulty passing flatus. Review of labs shows patient had a D-dimer of 0.84 upon admission. CTA of the chest to evaluate for PE has been ordered. Repeat CT of the abdomen and pelvis was also ordered to evaluate for any interim changes such as SBO or for or interval development of an abscess. Results of these imaging is currently pending. Patient reports that she has a past history of recurrent episodes of tachycardia which are precipitated without any apparent triggers. She has had event monitors placed 3 times in the past, states that she was just told she has a fast heart rate. No terms of SVT or A-fib/a flutter are not familiar to her. 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 She does not have any known valvular abnormalities as far as she is aware. Does not think she had endocarditis. Echocardiogram has been ordered to assess for any underlying v alvular or other structural abnormalities. Check troponin series. Coding Level of Care Code Acute Code for Chg Fwd
[2023-02-05 02:29] LABS: Alanine Aminotransferase 25 U/L (0-33); Albumin Level 3.1 g/dL (3.5-5.2); Alkaline Phosphatase 57 U/L (35-105); Anion Gap 13.2 (5-19); Aspartate Amino Transferase 27 U/L (0-32); Blood Urea Nitrogen 2 mg/dL (6-20); Calcium 7.1 mg/dL (8.5-10.5); Carbon Dioxide 23 mmol/L (22-29); Chloride 107 mmol/L (98-107); Globulin 2.6 g/dL (1.3-4.6); Glomerular Filtration Rate 74.7 mL/min (90-130); Glucose 84 mg/dL (65-115); Osmolality Calculated 285 mOsm/kg (285-295); Potassium 3.2 mmol/L (3.5-5.1); Sodium 140 mmol/L (136-145); Total Bilirubin 0.5 mg/dL (0.15-1.2); Total Protein 5.7 g/dL (6.6-8.7)
[2023-02-05] MEDS: diphenhydrAMINE 25 mg Capsule PO ×2 (03:59→22:08)
[2023-02-05 04:56] LABS: Troponin 5 2HR 12.16 ng/L (0-10)
[2023-02-05 04:58] LABS: Troponin 5 2HR Delta 2.16 ABS# (0-10)
[2023-02-05] MEDS: piperacillin-tazobactam 3.375 GM in sodium chloride 0.9% (plus) 50 ML IV ×3 (05:00→21:18)
[2023-02-05 05:30] LABS: Troponin 5 6HR 14.82 ng/L (0-10)
[2023-02-05 05:41] LABS: Troponin 5 6HR Delta 4.82 ng/L (0-12)
[2023-02-05] MEDS: nystatin powder 15 gm Btl 1 APPLIC TOPICAL (10:25)
--- NOTE | 2023-02-05 13:46 | PM.PN ---
Subjective Subjective: She is endorsing feeling better She wants to eat food Cardizem gtt discontinued she was switched to amiodarone Vitals/I&O/Wt Last Vital Signs Temp 98.5 F 02/05/23 08:30 Pulse 73 02/05/23 09:16 Resp 18 02/05/23 09:16 BP 112/73 02/05/23 07:15 Pulse Ox 95 02/05/23 09:16 O2 Del Method Room Air 02/05/23 09:16 02/04/23 02/05/23 02/05/23 22:59 06:59 14:59 Intake Total 1493.334 / 2943.334 396.667 / 3340.001 290 / 290 Balance 1493.334 / 2943.334 396.667 / 3340.001 290 / 290 Physical Exam Narrative: Abdomen soft Bowel sound present Clinically dehydrated Awake and alert S1, S2 variable GCS 15 Currently on room air Pleasant and cooperative Data 02/04/23 22:18 02/04/23 22:18 Micro: Microbiology 02/03/23 04:45 Urine Culture - Final Urine,Clean Catch A&P Assessment and plan (1) Paroxysmal atrial flutter: (2) Hypokalemia: (3) Abdominal pain: (4) Atrial tachycardia: (5) Colitis: (6) NAFLD (nonalcoholic fatty liver disease): (7) Treatment-resistant depression: (8) Psoriasis: (9) Hypothyroidism: Qualifiers: Hypothyroidism type: acquired Qualified Code(s): E03.9 - Hypothyroidism, unspecified (10) Asthma, mild intermittent, well-controlled: (11) Fibromyalgia: (12) Chronic GERD: (13) Hiatal hernia: Plan Paroxysmal atrial flutter/SVT Patient heart rate 190 noted by the nursing staff and rapid response was called patient was given 30 mg of Cardizem which dropped her heart rate 130 she was transferred to ICU on Cardizem drip overnight Cardizem drip was switched to amiodarone around 4 AM Keep potassium above 4 and magnesium of 2 Add magnesium supplement Troponin without significant elevation Echo pending Patient is stating that she has had history of SVTs but never this high, this point suspicion is low for endocarditis After 24 hours of IV amiodarone we will switch to p.o. AV elizabeth blocking agent, at home patient was taking metoprolol succinate 100 mg daily D-dimer unremarkable for her age 0.8 Hypokalemia: Repleted Hypomagnesemia: Added p.o. magnesium supplement Colitis: Resolved I would start patient on diet today No fever or leukocytosis Nonalcoholic fatty liver disease patient will need outpatient GI/hepatology Hypothyroidism: Continue levothyroxine dose Hiatal hernia No acute exacerbation Patient may build to go home with Holter monitor in next 24 hours Cardiac diet DVT prophylaxis on board Attestations Medical Necessity Statement*: Continue medical management can be transferred out of ICU to CSU Diagnoses Paroxysmal atrial flutter I48.92 Hypokalemia E87.6 Abdominal pain R10.9 Atrial tachycardia I47.1 Colitis K52.9 NAFLD (nonalcoholic fatty liver disease) K76.0 Treatment-resistant depression F32.9 Psoriasis L40.9 Hypothyroidism E03.9 Hypothyroidism type: acquired Asthma, mild intermittent, well-controlled J45.20 Fibromyalgia M79.7 Chronic GERD K21.9 Hiatal hernia K44.9
[2023-02-05] MEDS: potassium chloride ER 20 mEq Tablet 40 MEQ PO (15:07)
[2023-02-05] MEDS: oxyCODONE 5 mg IR Tab/Cap 10 MG PO ×2 (15:24→19:46)
--- NOTE | 2023-02-05 17:12 | PC.NURSE ---
Charlee comes to CSU from ICU at 1650. Her IV in her left AC has been pulled out upon arrival. Her Right forearm is hurting her and firm feeling above the IV. Kacie from ICU is going to have a nurse come over with the ultrasound to restart another IV. Her amio is still running in her Right forearm until another can be started. Her zosyin has been paused, waiting another IV.
[2023-02-05 17:14] LABS: Thyroid Stimulating Hormone 5.01 uIU/mL (0.27-4.20)
[2023-02-05] MEDS: magnesium oxide 400 mg tablet PO (19:32)
[2023-02-05] MEDS: ondansetron 2 mg/ML SDV 2 mL 4 MG IVP (19:46)
--- NOTE | 2023-02-05 22:19 | ECG_ITS ---
[facility] Test Date: 2023-02-05 Pat Name: Charlee Anderson Department: Room: 108 Gender: Female Court Crier: : 1970 Requested By: Irene Steiner Order Number: [id number] Rossana MD: Annia Cohen M.D. Measurements Intervals [place] Rate: 131 P: 0 ID: 0 QRS: -17 QRSD: 93 T: -49 QT: 323 QTc: 478 Interpretive Statements SUPRAVENTRICULAR TACHYCARDIA INFERIOR MYOCARDIAL INFARCTION , OF INDETERMINATE AGE [40+ ms Q WAVE AND/OR ST/T ABNORMALITY IN II/aVF] Compared to ECG 02/05/2023 00:39:44 Sinus rhythm no longer present Myocardial infarct finding still present Electronically Signed On 02-06-2023 17:39:07 CDT by Annia Cohen M.D. [id number]
[2023-02-05 22:59] LABS: Troponin T (5th) Once 18 ng/L (0-10)
[2023-02-05] MEDS: ALPRAZolam 0.5 mg Tablet PO (23:04)
[2023-02-05 23:09] LABS: Alanine Aminotransferase 26 U/L (0-33); Albumin Level 3.6 g/dL (3.5-5.2); Alkaline Phosphatase 64 U/L (35-105); Anion Gap 17.1 (5-19); Aspartate Amino Transferase 27 U/L (0-32); Blood Urea Nitrogen 5 mg/dL (6-20); Calcium 7.9 mg/dL (8.5-10.5); Carbon Dioxide 25 mmol/L (22-29); Chloride 101 mmol/L (98-107); Globulin 3.1 g/dL (1.3-4.6); Glomerular Filtration Rate 65.2 mL/min (90-130); Glucose 101 mg/dL (65-115); Magnesium 1.6 mg/dL (1.7-2.3); Osmolality Calculated 287 mOsm/kg (285-295); Potassium 3.1 mmol/L (3.5-5.1); Sodium 140 mmol/L (136-145); Total Bilirubin 0.5 mg/dL (0.15-1.2); Total Protein 6.7 g/dL (6.6-8.7)
[2023-02-06] VITALS (14 sets, daily range): BP systolic 108–132; BP diastolic 75–91; PULSE 68–135; RESP 13–22; TEMP 36.4–36.9; O2SAT 95–100
[2023-02-06] MEDS: magnesium sulfate premix 2 GM/50 ML PIGGYBACK IV (01:09)
[2023-02-06] MEDS: ondansetron 2 mg/ML SDV 2 mL 4 MG IVP ×3 (01:49→21:02)
[2023-02-06] MEDS: oxyCODONE 5 mg IR Tab/Cap 10 MG PO ×3 (01:49→20:44)
[2023-02-06 03:06] LABS: Basophils # 0.1 10^3/uL (0.0-0.1); Basophils % 0.6 %; Eosinophils # 0.2 10^3/uL (0.0-0.8); Hematocrit 38.1 % (37.0-47.0); Hemoglobin 12.5 g/dL (11.5-15.3); Lymphocytes # 2.6 10^3/uL (0.8-4.8); Lymphocytes % 32.6 %; Mean Corpuscular HGB Conc 32.8 g/dL (30.0-36.0); Mean Corpuscular Hemoglobin 30.3 pg (28.0-34.0); Mean Corpuscular Volume 92.5 fl (81-99); Mean Platelet Volume 11.6 fL (7.4-10.4); Monocytes # 0.4 10^3/uL (0.2-0.9); Monocytes % 5.5 %; Neutrophils # 4.68 10^3/uL (1.8-7.7); Neutrophils % 57.9 %; Nucleated Red Blood Cells % 0 %; Platelet Count 170 10^3/cmm (130-400); Red Blood Count 4.12 10^6/uL (4.1-5.3); Red Cell Distribution Width 12.9 % (12.1-15.1); White Blood Count 8.1 10^3/uL (4.0-10.0)
[2023-02-06 03:26] LABS: Blood Urea Nitrogen 5 mg/dL (6-20); Calcium 7.9 mg/dL (8.5-10.5); Carbon Dioxide 25 mmol/L (22-29); Chloride 103 mmol/L (98-107); Glomerular Filtration Rate 65.2 mL/min (90-130); Glucose 110 mg/dL (65-115); Magnesium 2.2 mg/dL (1.7-2.3); Osmolality Calculated 288 mOsm/kg (285-295); Sodium 140 mmol/L (136-145)
[2023-02-06 03:33] LABS: Anion Gap 15.1 (5-19); Potassium 3.1 mmol/L (3.5-5.1)
[2023-02-06] MEDS: piperacillin-tazobactam 3.375 GM in sodium chloride 0.9% (plus) 50 ML IV ×3 (04:54→20:43)
[2023-02-06] MEDS: buPROPion XL (24 HR) 150 mg Tablet PO (05:25)
--- NOTE | 2023-02-06 07:19 | PC.NURSE ---
chart reviewed and agree with documentation by nurse resident
[2023-02-06] MEDS: levothyroxine 175 mcg Tablet PO (09:16)
[2023-02-06] MEDS: metoprolol succinate ER (24 HR) 100 mg Tablet PO (09:16)
[2023-02-06] MEDS: magnesium oxide 400 mg tablet PO ×2 (09:16→18:33)
--- NOTE | 2023-02-06 10:27 | PC.SOCIAL ---
[facility] IMM update: Pg 2 of [facility] dated and reviewed with pt. Copy provided. Copy dated, initialed and placed in hcart at 845 am.
--- NOTE | 2023-02-06 17:31 | P.CONIM_ITS ---
Providers/Reason For Consult Consulting Physician/Specialty*: Dr. Cohen, Cardiology Reason for Consult*: tachycardia difficult to control Attending Physician: Isaías Tejeda Primary Care Provider: Corazon Cardona MD History of Present Illness History of Present Illness Charlee Anderson is a 52 year old female pleasant woman with ?recent laparoscopic cholecystectomy in [place]. She was admitted with abdominal pain, multiple episodes of nausea and vomiting and diarrhea.? In the emergency room she was noted to have leukocytosis, elevated lactate. CT of her abdomen and pelvis showed fatty changes of the liver.? Interval cholecystectomy.? No ductal dilatation.? There was diffuse fatty atrophy of the pancreas without any ductal dilatation.? Note was made of thickening of colonic milan which may be pharmaceutical representative of colitis.? She is being treated for colitis and potassium is being replaced. She was noted to be have PSVT with HR in 140's-150's and was started on cardizem gtt after boluses. She was placed briefly on amiodarone gtt that has since been stopped. She in now on metoprolol succinate and still is having paroxysmal tachycardia with HR as high as 200's and currently in 140's. c/o some chest tightness and tachycardia. Review of Systems Const: Denies: fever(s), chills, change in appetite, change in weight, fatigue or malaise Eyes: Denies: change in vision ENMT: Denies: throat pain, swelling of lips/tongue, oral sores, bleeding gums, nasal congestion or epistaxis Card: Reports: edema (minimal); Denies: chest pain Resp: Denies: dyspnea or chest congestion GI: Denies: abdominal pain, nausea, vomiting, hematemesis, heartburn, diarrhea, constipation, change in bowel habits, hematochezia or melena : Denies: difficulty voiding, dysuria, oliguria or hematuria Musc: Denies: back pain, extremity swelling, joint pain or muscle weakness Skin/Breast: Denies: rash or erythema Neuro: Reports: headache(s) (Upon waking) Psych: Denies: anxiety, depression or irritability Endo: Denies: tired all the time Bossman/Lymph: Denies: easy bruising, easy bleeding, petechiae or purpura All/Imm: Denies: throat swelling, tongue swelling or acute wheezing Medications/Allergies Home Medications Medication Instructions Recorded Confirmed Last Taken Type tramadol 50 mg tablet 100 mg PO Q6H PRN pain 05/31/22 02/03/23 06/08/22 History acetaminophen 325 mg capsule 650 mg PO QID PRN Pain 06/08/22 02/03/23 Unknown History (Tylenol) hydroxyzine HCl 25 mg tablet 25 mg PO TID PRN itching or 10/11/22 02/03/23 Unknown Rx anxiety #90 tabs gabapentin 800 mg tablet 800 mg PO TID 30 days #90 tabs 11/10/22 02/03/23 Un known Rx ipratropium 0.5 mg-albuterol 3 mg 3 ml inhalation Q4H PRN shortness 11/10/22 02/03/23 Unknown Rx (2.5 mg base)/3 mL nebulization of breath or wheezing #180 mL soln levothyroxine 175 mcg tablet 175 mcg PO DAILY 90 days #90 tabs 11/10/22 02/03/23 Unknown Rx (Euthyrox) metoprolol succinate 100 mg 100 mg PO DAILY 90 days #90 tabs 11/10/22 02/03/23 Unknown Rx tablet,extended release 24 hr omeprazole 40 mg capsule,delayed 40 mg PO DAILY 90 days #90 caps 11/10/22 02/03/23 Unknown Rx release ondansetron 4 mg disintegrating 4 mg PO Q8H PRN nausea and 11/10/22 02/03/23 Unknown Rx tablet vomiting #30 tabs duloxetine 60 mg capsule,delayed 60 mg PO DAILY #30 caps 12/27/22 02/03/23 Unknown Rx release (Cymbalta) bupropion HCl 150 mg 24 hr tablet, 150 mg PO QAM #30 tabs 01/27/23 02/03/23 Unknown Rx extended release (Wellbutrin XL) ciprofloxacin HCl 500 mg tablet 500 mg PO Q12H #14 tabs 02/02/23 Unknown Rx (Cipro) metronidazole 500 mg tablet 500 mg PO BID 7 days #14 tabs 02/02/23 Unknown Rx potassium chloride 10 mEq 10 meq PO BID #20 caps 02/02/23 Unknown Rx capsule,extended release Allergies Allergy/AdvReac Type Severity Reaction Status Date / Time trazodone Allergy Intermediate ALGY-Difficulty Verified 12/11/22 16:42 Swallowing levothyroxine Allergy she takes Verified 12/11/22 16:42 this daily but will cause a rash/itching morphine AdvReac nausea, Verified 12/11/22 16:42 vomiting Current Medications Generic Name Dose Route Start Last Admin Trade Name Sherry PRN Reason Stop Dose Admin Bupropion HCl 150 mg 02/06/23 06:00 02/06/23 05:25 Bupropion Xl (24 Hr) 150 Mg Tablet PO 150 mg QAM TIFFANY Administration Hydromorphone HCl 0.5 mg 02/03/23 09:57 02/05/23 00:39 Hydromorphone 1 Mg/Ml Inj 1 Ml IVP 0.5 mg Q4H PRN Administration abd pain Piperacillin Sod/Tazobactam 50 mls @ 12.5 mls/hr 02/03/23 04:30 02/06/23 16:45 Sod 3.375 gm/ Sodium Chloride IV Infused Q8H TIFFANY Infusion Protocol Amiodarone HCl 900 mg/ 518 mls @ 0 mls/hr 02/05/23 02:00 02/06/23 04:29 Dextrose/ IV Miscellaneous IV 0 mg/min Supplies .Q0M TIFFANY 0 mls/hr Titration Protocol Per Protocol Levothyroxine Sodium 175 mcg 02/06/23 09:00 02/06/23 09:16 Levothyroxine 175 Mcg Tablet PO 175 mcg DAILY TIFFANY Administration Magnesium Oxide 400 mg 02/05/23 18:00 02/06/23 09:16 Magnesium Oxide 400 Mg Tablet PO 400 mg BID TIFFANY Administration Metoprolol Succinate 100 mg 02/06/23 09:00 02/06/23 09:16 Metoprolol Succinate Er (24 Hr) 100 Mg Tablet PO 100 mg DAILY TIFFANY Administration Nystatin 1 applic 02/03/23 09:00 02/06/23 11:20 Nystatin Powder 15 Gm Btl TOPICAL Not Given BID TIFFANY Ondansetron HCl 4 mg 02/03/23 00:01 02/06/23 15:02 Ondansetron 2 Mg/Ml Sdv 2 Ml IVP 4 mg Q6H PRN Administration NAUSEA AND VOMITING Oxycodone HCl 10 mg 02/03/23 10:38 02/06/23 15:01 Oxycodone 5 Mg Ir Tab/Cap PO 10 mg Q4H PRN Administration SEVERE PAIN PFSH Acute PFSH: Medical History Anxiety disorder Asthma, mild intermittent, well-controlled Encounter for long-term opiate analgesic use Encounter for tobacco use cessation counseling Fibromyalgia Hematuria Hypertension Hypothyroidism Hx allergy to all thyroid medication but has been through desensitization of levothyroxine. Major depressive disorder, recurrent, moderate Medication-induced movement disorder Mild intermittent asthma with acute exacerbation Opioid contract exists Post-traumatic stress disorder, chronic Psychiatric care Seasonal allergies Sleep apnea Smoker Treatment-resistant depression Surgical History H/O thyroidectomy Family History Mother Cancer Family/Other Heart disease Social History Smoking and tobacco status: former smoker Alcohol intake: never Desire information about alcohol rehabilitation?: No Substance/Drug Use: never Marital status: / Current occupational status: disabled Female Reproductive History: Spontaneous abortions: No Vitals/I&O/Wt Last Vital Signs Temp 97.5 F L 02/06/23 08:00 Pulse 135 H 02/06/23 16:00 Resp 21 H 02/06/23 16:00 BP 108/89 02/06/23 16:00 Pulse Ox 96 02/06/23 16:00 O2 Del Method Room Air 02/06/23 16:00 O2 Flow Rate 2 02/06/23 08:00 02/06/23 02/06/23 02/06/23 06:59 14:59 22:59 Intake Total 397.884 / 2480.312 735 / 735 50 / 785 Balance 397.884 / 2080.312 735 / 735 50 / 785 Physical Exam Narrative: GENERAL: obese woman laying in bed in no acute distress HEENT: Extraocular movement intact. No pallor or icterus. NECK: central trachea, No JVD No carotid bruit. CARDIOVASCULAR SYSTEM: S1-S2 regular. tachycardia+ No murmur rubs or gallops. RESPIRATORY SYSTEM: Chest clear to auscultation. No wheezes rhonchi or rubs heard. No use of accessory muscles. ABDOMEN: Soft, nontender and nondistended. Normal bowel sounds present. EXTREMITIES: No cyanosis or edema. No signs of chronic venous insufficiency. DEVELOPMENT ARCHITECT: Patient is alert oriented ?3. No focal neurological deficits. . Data 02/06/23 02:49 02/06/23 02:49 Micro: Microbiology 02/03/23 04:45 Urine Culture - Final Urine,Clean Catch A&P Assessment and plan (1) PSVT (paroxysmal supraventricular tachycardia): She has been having these spells for several years. -No prior CV/med use or ablations -Bedside Adenosine 6 mg x 1 was administered with pentecostalism of NSR -will start on Flecainide 50 mg twice a day -will consider outpatient SVT ablation -normal LV function and no evidence of structural HD on echo. (2) Smoker: (3) Obesity: Qualifiers: Obesity type: due to excess calories Obesity classification: adult class 3 (BMI >= 40) Serious obesity comorbidity presence: with serious comorbidity Body mass index: BMI 50.0-59.9 Qualified Code(s): E66.01 - Morbid (severe) obesity due to excess calories; Z68.43 - Body mass index [BMI] 50.0-59.9, adult (4) BENJAMIN (obstructive sleep apnea): Plan Hypokalemia: potassium 40 meq X 1 Consult Attestations Critical Care Time: The high probability of a clinically significant, sudden or life threatening deterioration of the patient's [cardiovascular] system(s) required my full and direct attention, intervention and personal management. The critical care time is as shown. This time is in addition to time spent performing any reported procedures but includes the following: [x] Data and vital sign review and interpretation [x] Patient assessment, examination and intervention [x] Documentation [x] Medication orders and management Critical Care Time (min): 40 Coding Level of Care Code Critical Care >/= 30 minutes Diagnoses PSVT (paroxysmal supraventricular tachycardia) I47.1 Smoker F17.200 Obesity E66.01; Z68.43 Obesity type: due to excess calories Obesity classification: adult class 3 (BMI >= 40) Serious obesity comorbidity presence: with serious comorbidity Body mass index: BMI 50.0-59.9 BENJAMIN (obstructive sleep apnea) G47.33
--- NOTE | 2023-02-06 17:48 | ECG_ITS ---
[facility] Test Date: 2023-02-06 Pat Name: Charlee Anderson Department: Room: 108 Gender: Female Office Specialist: : 1970 Requested By: Isaías Tejeda Order Number: [id number] Rossana MD: Melodie Loza M.D. Measurements Intervals [place] Rate: 87 P: 98 MI: 169 QRS: -30 QRSD: 73 T: -28 QT: 351 QTc: 424 Interpretive Statements SINUS RHYTHM POSSIBLE LEFT ATRIAL ENLARGEMENT [-0.1mV P-WAVE IN V1/V2] LOW QRS VOLTAGE IN EXTREMITY LEADS [QRS DEFLECTION < 0.5 mV IN LIMB LEADS] PATTERN CONSISTENT WITH PULMONARY DISEASE INFERIOR MYOCARDIAL INFARCTION , PROBABLY OLD [40+ ms Q WAVE AND/OR ST/T ABNORMALITY IN II/aVF] Compared to ECG 02/05/2023 22:19:45 Low QRS voltage now present Supraventricular tachycardia no longer present Myocardial infarct finding still present Electronically Signed On 02-06-2023 21:40:07 CDT by Melodie Loza M.D. [id number]
[2023-02-06] MEDS: adenosine 3 mg/mL SDV 2mL 6 MG IVP (18:13)
--- NOTE | 2023-02-06 18:21 | PC.NURSE ---
Patient complained of chest pain with heart rate in the 140's. She rated her pain a 6/10. Dr. Cohen is notified since she was on the unit. She ordered an ECG. She wanted the crash cart in the room and hooked up, she still had her zoll pads on from the prior episode so those are connected to the crash cart. Adenosine 6mg is pushed and followed by 10ml saline flush with Dr. Cohen in the room. Patient converted back to sinus rhythm with a heart rate in the 60's. Dr Cohen also will order some new medication, see MAR.
[2023-02-06] MEDS: flecainide 100 mg Tablet 50 MG PO (18:33)
[2023-02-06] MEDS: potassium chloride ER 20 mEq Tablet 40 MEQ PO (18:34)
[2023-02-06] MEDS: metoprolol tartrate 50 mg Tablet PO (21:02)
--- NOTE | 2023-02-06 22:20 | P.PN_ITS ---
Subjective Subjective: Last night SVT, she felt palpitations, otherwise has been having some nausea. Still having diarrhea. Vitals/I&O/Wt Last Vital Signs Temp 98.5 F 02/06/23 20:00 Pulse 78 02/06/23 20:00 Resp 22 H 02/06/23 20:44 BP 120/81 02/06/23 20:00 Pulse Ox 98 02/06/23 20:44 O2 Del Method Room Air 02/06/23 20:00 O2 Flow Rate 2 02/06/23 08:00 02/06/23 02/06/23 02/06/23 06:59 14:59 22:59 Intake Total 397.884 / 2480.312 735 / 735 50 / 785 Balance 397.884 / 2080.312 735 / 735 50 / 785 Physical Exam Const: COMMON NORMALS: patient oriented x3 and alert GENERAL APPEARANCE: cooperative NUTRITIONAL APPEARANCE: obese ORIENTATION/CONSCIOUSNESS: Yes awake HENMT: COMMON NORMALS: oropharynx normal Neck/C-Spine: COMMON NORMALS: no JVD Resp: COMMON NORMALS: normal respiratory effort and clear to auscultation bila terally AUSCULTATION: clear to auscultation bilaterally Cardio: COMMON NORMALS: no JVD, regular rhythm, S1 normal heart sound present, S2 normal heart sound present and No murmurs present (Cardio) RHYTHM: regular rhythm HEART SOUNDS: S1 normal heart sound present and S2 normal heart sound present GI: COMMON NORMALS: Normal to inspection, nondistended, normoactive bowel sounds present and Soft to palpation PALPATION: Yes Soft to palpation Extremity: COMMON NORMALS: no joint enlargement and no pedal edema Neuro: COMMON NORMALS: patient oriented x3 and moves all extremities SENSORIUM/ORIENTATION: Yes alert Data 02/06/23 02:49 02/06/23 02:49 A&P Assessment and plan (1) Paroxysmal atrial flutter: (2) Hypokalemia: (3) Abdominal pain: (4) Atrial tachycardia: (5) Colitis: (6) NAFLD (nonalcoholic fatty liver disease): (7) Treatment-resistant depression: (8) Psoriasis: (9) Hypothyroidism: Qualifiers: Hypothyroidism type: acquired Qualified Code(s): E03.9 - Hypothyroidism, unspecified (10) Asthma, mild intermittent, well-controlled: (11) Fibromyalgia: (12) Chronic GERD: (13) Hiatal hernia: Plan Paroxysmal atrial flutter/SVT Additional episode of PSVT last night heart rate up to 180s, appears to improved with 5 mg IV push metoprolol. Already on 100 mg succinate daily. Prior reports of atrial flutter, but I do not appreciate flutter on EKGs. Initially discussed with her transition to metoprolol tartrate twice daily. Then this afternoon add itional episode of triggered PSVT with heart rates up to 140s after getting up to the restroom. Subsequently down to 130s. Maintaining blood pressure. With stable SVT requested consultation with cardiology for additional assessment and management. Appreciate consultation. Noted initiated on flecainide. Consideration of outpatient SVT ablation. Echo noted unremarkable. Continue cardiac monitoring, at risk of severe tachycardia, hemodynamic compromise. Follow-up electrolytes. Hypokalemia: Potassium noted 3.1. Received replacement. Hypomagnesemia: Magnesium noted 2.2 today. Recheck magnesium Colitis: Improved but still diarrhea. C. difficile and stool bacterial panels are ordered. Follow-up. Nauseated, however, states tolerating oral diet, does not want to de-escalate. No fever or leukocytosis Nonalcoholic fatty liver disease patient will need outpatient GI/hepatology Hypothyroidism: Continue levothyroxine dose Hiatal hernia No acute exacerbation Attestations Medical Necessity Statement*: Continue admission for assessment management of paroxysmal SVT, further assessment of colitis. Diagnoses Paroxysmal atrial flutter I48.92 Hypokalemia E87.6 Abdominal pain R10.9 Atrial tachycardia I47.1 Colitis K52.9 NAFLD (nonalcoholic fatty liver disease) K76.0 Treatment-resistant depression F32.9 Psoriasis L40.9 Hypothyroidism E03.9 Hypothyroidism type: acquired Asthma, mild intermittent, well-controlled J45.20 Fibromyalgia M79.7 Chronic GERD K21.9 Hiatal hernia K44.9
[2023-02-06] MEDS: diphenhydrAMINE 25 mg Capsule PO (22:39)
[2023-02-07] VITALS (8 sets, daily range): BP systolic 109–160; BP diastolic 56–112; PULSE 60–71; RESP 15–19; TEMP 36.6–37.2; O2SAT 95–96
[2023-02-07 03:53] LABS: Basophils # 0.1 10^3/uL (0.0-0.1); Basophils % 0.7 %; Eosinophils # 0.3 10^3/uL (0.0-0.8); Eosinophils % 3.2 %; Hemoglobin 13.7 g/dL (11.5-15.3); Lymphocytes # 2.6 10^3/uL (0.8-4.8); Lymphocytes % 31.5 %; Mean Corpuscular HGB Conc 31.9 g/dL (30.0-36.0); Mean Corpuscular Volume 94.1 fl (81-99); Mean Platelet Volume 12.1 fL (7.4-10.4); Monocytes # 0.5 10^3/uL (0.2-0.9); Monocytes % 6.6 %; Neutrophils # 4.74 10^3/uL (1.8-7.7); Neutrophils % 57.8 %; Nucleated Red Blood Cells % 0 %; Platelet Count 234 10^3/cmm (130-400); Red Blood Count 4.57 10^6/uL (4.1-5.3); Red Cell Distribution Width 13.1 % (12.1-15.1); White Blood Count 8.2 10^3/uL (4.0-10.0)
[2023-02-07] MEDS: piperacillin-tazobactam 3.375 GM in sodium chloride 0.9% (plus) 50 ML IV ×2 (04:15→13:07)
[2023-02-07 04:22] LABS: Alanine Aminotransferase 25 U/L (0-33); Albumin Level 3.8 g/dL (3.5-5.2); Alkaline Phosphatase 65 U/L (35-105); Anion Gap 15.5 (5-19); Aspartate Amino Transferase 22 U/L (0-32); Blood Urea Nitrogen 7 mg/dL (6-20); Carbon Dioxide 29 mmol/L (22-29); Chloride 104 mmol/L (98-107); Globulin 2.7 g/dL (1.3-4.6); Glomerular Filtration Rate 57.8 mL/min (90-130); Glucose 123 mg/dL (65-115); Magnesium 2.2 mg/dL (1.7-2.3); Osmolality Calculated 297 mOsm/kg (285-295); Potassium 4.5 mmol/L (3.5-5.1); Sodium 144 mmol/L (136-145); Total Bilirubin 0.3 mg/dL (0.15-1.2); Total Protein 6.5 g/dL (6.6-8.7)
[2023-02-07] MEDS: buPROPion XL (24 HR) 150 mg Tablet PO (06:00)
[2023-02-07] MEDS: flecainide 100 mg Tablet 50 MG PO (06:00)
--- NOTE | 2023-02-07 06:20 | PC.NURSE ---
reviewed chart and agree with documentation by nurse resident
[2023-02-07] MEDS: magnesium oxide 400 mg tablet PO (08:34)
[2023-02-07] MEDS: metoprolol tartrate 50 mg Tablet PO (08:34)
[2023-02-07] MEDS: levothyroxine 175 mcg Tablet PO (08:35)
--- NOTE | 2023-02-07 08:43 | PC.CHAP ---
Pastoral Care Encounter/Spiritual Assessment Type of Contact [] Declined process tech visit [] Patient/Family/Request visit [] Outpatient visit [] Follow-up visit [] Physician referral [] Code/Alert [x] Routine visit [] Staff referral [] Actively dying [] Patient sleeping [] Family support [] [] Out of room [] Palliative care [] [] Receiving care in room [] Pre-surgical visit [] Trauma [] Long length of stay [] ICU visit [] Other: Relational/Emotional Strength [x] Patient feels connected with others/family/visitors/staff [] Distress [] Loneliness/isolation [] Abandonment Spirituality of Patient [x] Person of Kanika [] Attends Religious of their Kanika [x] Believes in Prayer [] Reads Bible or Voodoo materials [] There are Spiritual issues to be addressed 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 [x] Prayer [x] Active listening [] Non-anxious presence [x] Spiritual/emotional support [] Crisis/trauma care [] Spiritual counseling [] Bereavement support [] Provided bereavement packet [] Provided Bible/devotional materials [] Provided toy/stuffed animal, coloring book to patient or family member [] Provided Communion [] Anointing/[place] [] Salvation [x] Completed spiritual assessment [] Other: Impact on Illness or Injury [] Angry [] Fearful [] Anxious [] Often cries [] Exhaustion [] Unable to work [] Unable to attend evangelical [] Unable to walk/stand [] Unable to read [] Unable to drive [] Unable to eat/drink [] Unable to sleep [] Unable to be with family [] Patient intubated [] Other: Summary Time spent with patient 5 min
--- NOTE | 2023-02-07 13:55 | P.DS_ITS ---
Discharge Providers Date of Admission: 02/03/23 00:01 Date of Discharge: February 07, 2023 Attending Provider at Admission: Irene Steiner MD Attending Provider at Discharge: Isaías Tejeda Primary Care Provider: Corazon Cardona MD Diagnoses at Discharge Discharge Diagnosis (1) Paroxysmal atrial flutter: Status: Acute (2) Hypokalemia: Status: Acute (3) Abdominal pain: Status: Acute (4) Atrial tachycardia: Status: Acute (5) Colitis: Status: Acute (6) NAFLD (nonalcoholic fatty liver disease): Status: Acute (7) Treatment-resistant depression: Status: Acute (8) Psoriasis: Status: Acute (9) Hypothyroidism: Status: Acute Qualifiers: Hypothyroidism type: acquired Qualified Code(s): E03.9 - Hypothyroidism, unspecified Permanent problem details: Hx allergy to all thyroid medication but has been through desensitization of levothyroxine. (10) Asthma, mild intermittent, well-controlled: Status: Acute (11) Fibromyalgia: Status: Chronic (12) Chronic GERD: Status: Acute (13) Hiatal hernia: Status: Acute Reason for Visit Reason for Visit: Abd pain Hospital Course Hospital Course Pleasant 52-year-old lady with recent laparoscopic cholecystectomy in [place] presented due to abdominal pain, persistent nausea, vomiting and diarrhea, with leukocytosis, lactic elevation CT abdomen pelvis with fatty liver changes, interval cholecystectomy, no ductal dilation, diffuse fatty atrophy of the pancreas without ductal dilation, thickening of colonic milan with possible colitis. Additionally report of dysuria on presentation over the preceding 4 days. For colitis she was started empirically on Zosyn, stool studies for C. difficile, bacterial panel was requested, but no persistent diarrhea to collect a sample. Diarrhea currently has resolved. He has been tolerating oral intake. Urine culture eventually with mixed urogenital ramón, not suggestive of infection. Hospitalization was complicated by episodes of SVT for which she had received Cardizem, was transiently on amiodarone drip, was restarted on metoprolol. However, with recurrence of SVT cardiology consultation was obtained. Echocardiogram was obtained and was unremarkable. She was started on flecainide and so far further is doing well. She is asked to follow-up with repeat EKG in 1 week and follow-up in clinic. As mentioned her diarrhea has resolved, she is tolerating oral intake. She has been having some persistence of pain/tenderness around upper abdomen/right upper quadrant. She had a repeat contrast enhanced CT scan after episode of SVT which showed no acute abnormality in the abdomen and pelvis. Mildly enlarged fatty liver. Consideration could be secondary to hepatomegaly with NAFLD, otherwise consideration could be of postcholecystectomy syndrome. Discussed with her also lower chance of other causes, including possibility of postoperative complication, but there does not appear to be any fluid collections, no other suspicion of acute pathology on imaging. We considered repeating additional scan, however, given she had gotten 2 contrast-enhanced scans within the last 5 days eventually decided against it, she does know to seek medical attention immediately in case of any worsening or new concerning symptoms. She is asked to follow-up with her surgeon whom she has not seen since her surgery. Please follow-up for resolution of colitis. Consider referral for additional assessment by endoscopy after resolution especially in case of any recurrent symptoms. Please follow-up also regarding atrophic pancreas and NAFLD. Consider referral for additional assessment by gastroenterology especially in case of any persistent or recurrent symptoms. In case of recurrent diarrhea, obstruction, consider also addition of pancreatic enzymes. Additionally she reports some persistent nausea. She had an EGD about 3 years ago, in case nausea not improving with treatment of colitis, consider referral for additional assessment by EGD. She notes also history of recurrent headaches over the past 2 years, and is referred for additional assessment by MRI of the brain. Please follow-up. Physical Exam Const: COMMON NORMALS: patient oriented x3 and alert GENERAL APPEARANCE: cooperative NUTRITIONAL APPEARANCE: obese ORIENTATION/CONSCIOUSNESS: Yes awake HENMT: COMMON NORMALS: oropharynx normal Neck/C-Spine: COMMON NORMALS: no JVD Resp: COMMON NORMALS: normal respiratory effort and clear to auscultation bilaterally AUSCULTATION: clear to auscultation bilaterally Cardio: COMMON NORMALS: no JVD, regular rhythm, S1 normal heart sound present, S2 normal heart sound present and No murmurs present (Cardio) RHYTHM: regular rhythm HEART SOUNDS: S1 normal heart sound present and S2 normal heart sound present GI: COMMON NORMALS: Normal to inspection, nondistended, normoactive bowel sounds present and Soft to palpation PALPATION: Yes Soft to palpation and Yes Tenderness to palpation present (GI) (upper abdomen, RUQ) Extremity: COMMON NORMALS: no joint enlargement and no pedal edema Neuro: COMMON NORMALS: patient oriented x3 and moves all extremities SENSORIUM/ORIENTATION: Yes alert Skin: COMMON NORMALS: no rashes or lesions noted GENERAL SKIN EXAM: no rashes or lesions noted Discharge Data Studies Completed and Pending Completed Studies During Hospitalization Category Date Time Status CT abdomen pelvis w con* [id number] Stat Cat Scan 02/02/23 20:[address] abdomen pelvis [CT angio chest w abd pel w Cat Scan 02/05/23 00:18 Completed con] Routine CV. echo complete* [id number] Routine Ultrasound 02/05/23 00:18 Completed Pending at discharge Category Date Time Status Blood Culture Stat Lab 02/03/23 01:30 Results C DIFF [Clostridioides Difficile PCR] Routine Lab 02/03/23 04:07 Uncollected Complete Blood Count w/Auto AM LABS Lab 02/08/23 04:00 Ordered Complete Blood Count w/Auto AM LABS Lab 02/09/23 04:00 Ordered Comprehensive Metabolic Panel AM LABS Lab 02/08/23 04:00 Ordered Comprehensive Metabolic Panel AM LABS Lab 02/09/23 04:00 Ordered Enteric Bacterial Panel by PCR Routine Lab 02/03/23 04:07 Uncollected Magnesium AM LABS Lab 02/08/23 04:00 Ordered Magnesium AM LABS Lab 02/09/23 04:00 Ordered OVA and Parasites, Conc and PE Routine Lab 02/06/23 22:28 Uncollected Radiology Impressions Abdomen/Pelvis CT 02/02/23 20:52 IMPRESSION: 1. Hepatic steatosis. 2. Status post cholecystectomy. 3. Pancreatic atrophy. 4. Mild thickening of the colonic milan may represent colitis in the appropriate clinical setting. Clinical correlation is recommended. 5. Mild thickening of the bladder milan. The urinary bladder is however partially empty. Please correlate with urine analysis. COMMENTS: Consistent with the [employer]'s Incidental Findings Committee white paper (J Am Felicita Radiol 2018): Any incidental renal lesion less than 1 cm or classified as too small to characterize, or any incidental cystic renal lesion characterized as simple-appearing, is likely benign. No follow-up imaging is recommended for these lesions per consensus recommendations based on imaging criteria. Chest/Abdomen/Pelvis CT 02/05/23 00:18 IMPRESSION: 1. No findings of acute pulmonary embolism. Mosaic attenuation in each lung may reflect air trapping. No airspace disease. 2. Moderate sliding hiatal hernia. IMPRESSION: 1. No acute abnormality in the abdomen or pelvis. In particular, a normal appendix is confirmed and there is no evidence of urolithiasis. 2. Mildly enlarged fatty liver. No splenomegaly. Laboratory Results WBC 8.2 10^3/uL (4.0-10.0) 02/07/23 03:26 RBC 4.57 10^6/uL (4.1-5.3) 02/07/23 03:26 Hgb 13.7 g/dL (11.5-15.3) 02/07/23 03:26 Hct 43.0 % (37.0-47.0) 02/07/23 03: MCV 94.1 fl (81-99) 02/07/23 03:26 MCH 30.0 pg (28.0-34.0) 02/07/23 03: MCHC 31.9 g/dL (30.0-36.0) 02/07/23 03: RDW 13.1 % (12.1-15.1) 02/07/23 03:26 Plt Count 234 10^3/cmm (130-400) D 02/07/23 03:26 MPV 12.1 fL (7.4-10.4) H 02/07/23 03:26 Neut % (Auto) 57.8 % 02/07/23 03:26 Lymph % (Auto) 31.5 % 02/07/23 03:26 [place] % (Auto) 6.6 % 02/07/23 03:26 Eos % (Auto) 3.2 % 02/07/23 03:26 Baso % (Auto) 0.7 % 02/07/23 03:26 Neut # (Auto) 4.74 10^3/uL (1.8-7.7) 02/07/23 03:26 Lymph # (Auto) 2.6 10^3/uL (0.8-4.8) 02/07/23 03:26 [place] # (Auto) 0.5 10^3/uL (0.2-0.9) 02/07/23 03:26 Eos # (Auto) 0.3 10^3/uL (0.0-0.8) 02/07/23 03:26 Baso # (Auto) 0.1 10^3/uL (0.0-0.1) 02/07/23 03:26 Nucleated RBC % (auto) 0 % 02/07/23 03:26 Nucleated RBCs # 0.0 /100WBC 02/07/23 03:26 D-Dimer 0.84 ug/mIFEU (0-0.59) H 02/02/23 20:47 Sodium 144 mmol/L (136-145) 02/07/23 03:26 Potassium 4.5 mmol/L (3.5-5.1) 02/07/23 03:26 Chloride 104 mmol/L (98-107) 02/07/23 03:26 Carbon Dioxide 29 mmol/L (22-29) 02/07/23 03:26 Anion Gap 15.5 (5-19) 02/07/23 03:26 BUN 7 mg/dL (6-20) 02/07/23 03:26 Creatinine 1.0 mg/dL (0.5-0.9) H 02/07/23 03:26 GFR Calculation 57.8 mL/min (90-130) L 02/07/23 03:26 Glucose 123 mg/dL (65-115) H 02/07/23 03:26 Calculated Osmolality 297 mOsm/kg (285-295) H 02/07/23 03:26 Lactic Acid 3.3 mmol/L (0.5-2.2) H 02/02/23 20:47 Lactic Acid (Sepsis) 1.2 mmol/L (0.5-2.2) 02/02/23 23:41 Calcium 9.0 mg/dL (8.5-10.5) 02/07/23 03:26 Magnesium 2.2 mg/dL (1.7-2.3) 02/07/23 03:26 Total Bilirubin 0.3 mg/dL (0.15-1.2) 02/07/23 03:26 AST 22 U/L (0-32) 02/07/23 03:26 ALT 25 U/L (0-33) 02/07/23 03:26 Alkaline Phosphatase 65 U/L (35-105) 02/07/23 03:26 Troponin T Gen 5 ng/L 18 ng/L (0-10) H 02/05/23 22:27 Troponin T Baseline 10 ng/L (0-10) 02/04/23 22:18 Troponin T 120 Minute 12.16 ng/L (0-10) H 02/05/23 01:25 Troponin T 120 Minute Cancelled 02/05/23 01:25 Delta Troponin T 2.16 ABS# (0-10) 02/05/23 01:25 Delta Troponin T Cancelled 02/05/23 01:25 Troponin T Hi Sens 6Hr 14.82 ng/L (0-10) H 02/05/23 05:02 Troponin T Hi Sens 6Hr Delta 4.82 ng/L (0-12) 02/05/23 05:02 Total Protein 6.5 g/dL (6.6-8.7) L 02/07/23 03:26 Albumin 3.8 g/dL (3.5-5.2) 02/07/23 03:26 Globulin 2.7 g/dL (1.3-4.6) 02/07/23 03:26 Lipase 7 U/L (13-60) L 02/02/23 20:47 TSH 5.01 uIU/mL (0.27-4.20) H 02/05/23 05:02 Urine Color Yellow (Yellow) 02/03/23 04:45 Urine Appearance Hazy (CLEAR) A 02/03/23 04:45 Urine pH 5 (5-7) 02/03/23 04:45 Ur Specific [place] 1.005 (1.005-1.030) 02/03/23 04:45 Urine Protein 1+ (Negative) H 02/03/23 04:45 Urine Glucose (UA) Norm (Normal) 02/03/23 04:45 Urine Ketones 1+ (Negative) H 02/03/23 04:45 Urine Blood 3+ (Negative) H 02/03/23 04:45 Urine Nitrate Negative (Negative) 02/03/23 04:45 Urine Bilirubin Neg (Negative) 02/03/23 04:45 Urine Urobilinogen 1 mg/dL (Negative) H 02/03/23 04:45 Ur Leukocyte Esterase 2+ (Negative) H 02/03/23 04:45 Urine RBC 10-15 /hpf (0-2) H 02/03/23 04:45 Urine WBC 15-25 /hpf (0-5) H 02/03/23 04:45 Ur Squamous Epith Cells 15-25 /hpf (0-5) H 02/03/23 04:45 Amorphous Sediment Not Reportable 02/03/23 04:45 Urine Bacteria 2+ /hpf (NONE) H 02/03/23 04:45 Urine Mucus 2+ /hpf 02/03/23 04:45 Vitals Last Vital Signs Temp 97.8 F 02/07/23 08:00 Pulse 71 02/07/23 11:25 Resp 18 02/07/23 11:25 BP 131/76 02/07/23 11:25 Pulse Ox 96 02/07/23 11:25 O2 Del Method Room Air 02/07/23 11:25 O2 Flow Rate 2 02/06/23 08:00 Discharge Plan Discharge Patient Disposition: Home Condition: Stable Prescriptions: New Cipro 500 mg tablet 500 mg PO Q12H Qty: 14 0RF metronidazole 500 mg tablet 500 mg PO BID 7 Days Qty: 14 0RF potassium chloride 10 mEq capsule, extended release 10 meq PO BID Qty: 20 0RF flecainide 100 mg Tablet 50 mg PO Q12H Qty: 180 0RF Continued tramadol 50 mg tablet 100 mg PO Q6H PRN (Reason: pain) hydroxyzine HCl 25 mg tablet 25 mg PO TID PRN (Reason: itching or anxiety) Qty: 90 0RF omeprazole 40 mg capsule,delayed release(DR/EC) 40 mg PO DAILY 90 Days Qty: 90 3RF metoprolol succinate 100 mg tablet extended release 24 hr 100 mg PO DAILY 90 Days Qty: 90 1RF levothyroxine [Euthyrox] 175 mcg tablet 175 mcg PO DAILY 90 Days Qty: 90 1RF ipratropium-albuterol 0.5 mg-3 mg(2.5 mg base)/3 mL solution for nebulization 3 ml inhalation Q4H PRN (Reason: shortness of breath or wheezing) Qty: 180 1RF Rx Instructions: until breathing returns to target peak flow/parameters gabapentin 800 mg tablet 800 mg PO TID 30 Days Qty: 90 5RF ondansetron 4 mg tablet,disintegrating 4 mg PO Q8H PRN (Reason: nausea and vomiting) Qty: 30 2RF bupropion HCl [Wellbutrin XL] 150 mg tablet extended release 24 hr 150 mg PO QAM Qty: 30 0RF duloxetine [Cymbalta] 60 mg capsule,delayed release(DR/EC) 60 mg PO DAILY Qty: 30 3RF acetaminophen [Tylenol] 325 mg Capsule 650 mg PO QID PRN (Reason: Pain) Discharge Orders: Discharge Order (Routine); Ordered 02/07/23 Ordered By: Isaías Tejeda Other Ambulatory Orders: ECG 12 lead EKG (Routine) Timeframe: 1 Week Facility: [facility] - Location: Respiratory Therapy Ordered By: Isaías Tejeda MR head wo con* [id number] (Routine) Timeframe: 1 Week Facility: [facility] - Location: Radiology [facility] Ordered By: Isaías Tejeda Referrals: Lissette Cook FNP [Nurse Practitioner] - 02/14/23 1:15 pm Corazon Cardona MD [Primary Care Provider] - 02/08/23 11:15 am Discharge Diet: Advance as tolerated Discharge Activity: Resume usual activity Patient Instructions: Ciprofloxacin (By mouth), Metronidazole (By mouth), Flecainide (By mouth), Supraventricular Tachycardia (DC), Potassium Content of Foods List (GEN), Abdominal Pain (ED), Opioid Safety, Pain Management Activity Restrictions/Additional Instructions: Please follow-up with your primary doctor for reassessment of continued improvement of colitis. Complete antibiotic course. Consider follow-up assessment by colonoscopy. In case of any recurrence of symptoms consider referral to gastroenterology. Additionally consider referral to gastroenterology for additional assessment of findings of atrophic pancreas. In case of recurrent diarrhea, malabsorption, consider further investigation, addition of pancreatic enzymes and follow-up with gastroenterology. Please follow-up with the surgeon for reassessment after your cholecystectomy. Follow-up with your primary doctor regarding recurrent headaches. You are referred for additional assessment by MRI head. Return for EKG in 1 week as per cardiology instructions. Follow-up with cardiology in office. In case of any worsening or new concerning symptoms return to the hospital. Follow-up with your primary doctor regarding nonalcoholic fatty liver disease. Follow-up with your primary doctor regarding hiatal hernia. Please have your primary doctor follow-up your potassium level in office due to low potassium in the hospital requiring supplementation, include foods rich in potassium. Discharge Attestations Time Spent in Discharge Care*: greater than 30 min Quality Metrics Clinical Quality Measures [ No reported AMI, CVA or VTE this stay] Coding Level of Care Code 33629 Total time (in minutes) for Discharge: 55 Diagnoses Paroxysmal atrial flutter I48.92 Hypokalemia E87.6 Abdominal pain R10.9 Atrial tachycardia I47.1 Colitis K52.9 NAFLD (nonalcoholic fatty liver disease) K76.0 Treatment-resistant depression F32.9 Psoriasis L40.9 Hypothyroidism E03.9 Hypothyroidism type: acquired Asthma, mild intermittent, well-controlled J45.20 Fibromyalgia M79.7 Chronic GERD K21.9 Hiatal hernia K44.9
--- NOTE | 2023-02-07 16:54 | PM.PN ---
Subjective Subjective: No overnight events on telemetry c/o nausea, 100 lb weight loss in last 6 months. No vomiting or bloody diarrhea Medications: Reviewed: Yes Vitals/I&O/Wt Last Vital Signs Temp 97.8 F 02/07/23 08:00 Pulse 64 02/07/23 15:45 Resp 18 02/07/23 11:25 BP 131/76 02/07/23 11:25 Pulse Ox 96 02/07/23 11:25 O2 Del Method Room Air 02/07/23 11:25 O2 Flow Rate 2 02/06/23 08:00 02/07/23 02/07/23 02/07/23 06:59 14:59 22:59 Intake Total 530 / 1555 410 / 410 Balance 530 / 1555 410 / 410 Physical Exam Narrative: GENERAL: obese woman laying in bed in no acute distress HEENT: Extraocular movement intact. No pallor or icterus. NECK: central trachea, No JVD No carotid bruit. CARDIOVASCULAR SYSTEM: S1-S2 regular. No murmur rubs or gallops. RESPIRATORY SYSTEM: Chest clear to auscultation. No wheezes rhonchi or rubs heard. No use of accessory muscles. ABDOMEN: Soft, nontender and nondistended. Normal bowel sounds present. EXTREMITIES: No cyanosis or edema. No signs of chronic venous insufficiency. 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 No focal neurological deficits. . Data 02/07/23 03:26 02/07/23 03:26 A&P Assessment and plan (1) PSVT (paroxysmal supraventricular tachycardia): She has been having these spells for several years. -No prior CV/med use or ablations -Bedside Adenosine 6 mg x 1 was administered with religion of NSR -will start on Flecainide 50 mg twice a day -will consider outpatient SVT ablation -normal LV function and no evidence of structural HD on echo. -Vagal maneuvers taught (2) Smoker: advised on smoking cessation (3) Obesity: Qualifiers: Obesity type: due to excess calories Obesity classification: adult class 3 (BMI >= 40) Serious obesity comorbidity presence: with serious comorbidity Body mass index: BMI 50.0-59.9 Qualified Code(s): E66.01 - Morbid (severe) obesity due to excess calories; Z68.43 - Body mass index [BMI] 50.0-59.9, adult (4) BENJAMIN (obstructive sleep apnea): Plan Hypokalemia: potassium 40 meq X 1 Attestations Medical Necessity Statement*: As per primary team Coding Level of Care Code 20120 Diagnoses PSVT (paroxysmal supraventricular tachycardia) I47.1 Smoker F17.200 Obesity E66.01; Z68.43 Obesity type: due to excess calories Obesity classification: adult class 3 (BMI >= 40) Serious obesity comorbidity presence: with serious comorbidity Body mass index: BMI 50.0-59.9 BENJAMIN (obstructive sleep apnea) G47.33
== END 2023-02-07 17:15 | disposition home or self-care (01) | DRG 392 ==
LOC: ER 02-03 00:19 → MEDSURG 02-03 01:36 → ICU 02-05 04:46 → CSU 02-06 08:37 → ICU 02-14 15:16 → MEDSURG 02-14 15:16
PROVIDERS: Emergency Medicine; Internal Medicine; Admitting Provider Student in an Organized Health Care Education/Training Program; Emergency Provider Family Medicine; PCP Family Medicine; Visit Provider Internal Medicine
DX: K52.9 Noninfective gastroenteritis and colitis, unspecified (principal); I47.1 Supraventricular tachycardia; I48.4 Atypical atrial flutter; F33.9 Major depressive disorder, recurrent, unspecified; Z68.41 Body mass index [BMI] 40.0-44.9, adult; K76.0 Fatty (change of) liver, not elsewhere classified; K86.89 Other specified diseases of pancreas; Z79.891 Long term (current) use of opiate analgesic; Z90.49 Acquired absence of other specified parts of digestive tract; F41.9 Anxiety disorder, unspecified; J45.20 Mild intermittent asthma, uncomplicated; M79.7 Fibromyalgia; I10 Essential (primary) hypertension; E89.0 Postprocedural hypothyroidism; Z87.891 Personal history of nicotine dependence; E87.6 Hypokalemia; E86.0 Dehydration; L40.9 Psoriasis, unspecified; E66.01 Morbid (severe) obesity due to excess calories; E83.42 Hypomagnesemia; K44.9 Diaphragmatic hernia without obstruction or gangrene; E11.9 Type 2 diabetes mellitus without complications; G47.33 Obstructive sleep apnea (adult) (pediatric)
CPT/HCPCS: 36415; 71275; 74177; 80048; 80053; 81001; 83605; 83690; 83735; 84443; 84484; 85025; 85378; 87040; 87086; 93005; 93306; 96365; 96372; 96375; 96376; 99285; G0378; J0153; J0282; J0744; J1170; J1650; J2405; J2543; J3475; J3480; J3490; J7030; J7060; Q9967

== ENCOUNTER → 2023-02-16 10:33 | Outpatient (BNVA) | payer MEDICARE, OTHER, MEDICAID, SELFPAY ==
[2021-05-20 15:19] VITALS: BP 173/106; BMI 45.3
== END ==
PROVIDERS: PCP Family Medicine; Visit Provider Emergency Medicine
DX: I47.1 Supraventricular tachycardia (principal); R10.9 Unspecified abdominal pain; R39.89 Other symptoms and signs involving the genitourinary system; R10.30 Lower abdominal pain, unspecified; Z79.899 Other long term (current) drug therapy
CPT/HCPCS: 80053; 81000; 85025; 87086

== ENCOUNTER 2023-03-07 17:31 | Emergency (ER) | payer MEDICARE, OTHER, MEDICAID, SELFPAY ==
[2021-05-20 15:19] VITALS: BP 173/106; BMI 45.3
--- NOTE | 2023-03-07 | CTR_ITS ---
[facility] Call: [phone] assistance Online chat: [email or web address] Name: JG JULINE Age: 52Years F Date: 03/07/2023 SSN: -- : [id number] Study: CT ABDOMEN/PELVIS W Requesting Physician: Boom Barrios Images: [id number] Add?l Studies: Provided Clinical History: Page 1 of 2 PROCEDURE INFORMATION: Exam: CT Abdomen And Pelvis With Contrast Exam date and time: 03/07/2023 7:54 PM Age: 52 years old Clinical indication: Abdominal pain; Generalized TECHNIQUE: Imaging protocol: Computed tomography of the abdomen and pelvis with contrast. Radiation optimization: All CT scans at this facility use at least one of these dose optimization techniques: automated exposure control; mA and/or kV adjustment per patient size (includes targeted exams where dose is matched to clinical indication); or iterative reconstruction. Contrast material: OMNI 350; Contrast volume: 100 ml; Contrast route: INTRAVENOUS (IV); REPORTING DATA: Count of CT and Cardiac NM exams in prior 12 months: This patient has received 0 known CTs and 0 known cardiac nuclear medicine studies in the 12 months prior to the current study. COMPARISON: No relevant prior studies available. RADIATION DOSE METRICS: Total DLP (mGy-cm): 1122.6 FINDINGS: Lungs: Lung bases are clear. Liver: There is fatty infiltration throughout the liver which is otherwise unremarkable. Gallbladder and bile ducts: Gallbladder has been removed. Bile ducts are not appreciably dilated. Pancreas: Unremarkable. Main pancreatic duct is not significantly dilated. Spleen: Normal. No splenomegaly. Adrenal glands: Adrenal glands are not enlarged. No masses detected. Kidneys and ureters: Kidneys are unremarkable. No calculi or hydronephrosis detected. Stomach and bowel: Moderate degree of retained stool throughout the large bowel that may reflect some degree of constipation. Appendix: Appendix cannot be identified with confidence. However no findings suggestive of acute appendicitis. Intraperitoneal space: Unremarkable. No free air. No significant fluid collection. Vasculature: Unremarkable. No abdominal aortic aneurysm. Lymph nodes: Unremarkable. No enlarged lymph nodes. Urinary bladder: Urinary bladder is collapsed limiting assessment. Reproductive: 2.5 cm left ovarian cyst relatively simple, probably functional. Bones/joints: Unremarkable. No acute fracture. Soft tissues: Unremarkable. IMPRESSION: 1. No acute findings within the abdomen or pelvis. 2. Moderate degree of retained stool throughout the large bowel. Please correlate for constipation. 3. Additional nonemergent findings as above. Thank you for allowing us to participate in the care of your patient. Dictated and Authenticated by: Jose Alfredo Tadeo MD 03/07/2023 8:41 PM Central Time ([place] & [place]) KARELY
[2023-03-07 17:49] VITALS: BP 121/86; PULSE 101; RESP 18; TEMP 36.4; O2SAT 95; BMI 39.9
[2023-03-07 18:56] LABS: Basophils # 0.1 10^3/uL (0.0-0.1); Basophils % 0.7 %; Eosinophils # 0.1 10^3/uL (0.0-0.8); Eosinophils % 1.3 %; Hematocrit 48.7 % (37.0-47.0); Hemoglobin 15.7 g/dL (11.5-15.3); Lymphocytes # 2.5 10^3/uL (0.8-4.8); Lymphocytes % 23.6 %; Mean Corpuscular HGB Conc 32.2 g/dL (30.0-36.0); Mean Corpuscular Hemoglobin 30.6 pg (28.0-34.0); Mean Corpuscular Volume 94.9 fl (81-99); Mean Platelet Volume 12.4 fL (7.4-10.4); Monocytes # 0.6 10^3/uL (0.2-0.9); Monocytes % 5.8 %; Neutrophils # 7.12 10^3/uL (1.8-7.7); Neutrophils % 68.2 %; Nucleated Red Blood Cells % 0 %; Platelet Count 231 10^3/cmm (130-400); Red Blood Count 5.13 10^6/uL (4.1-5.3); Red Cell Distribution Width 12.9 % (12.1-15.1); White Blood Count 10.5 10^3/uL (4.0-10.0)
[2023-03-07 19:10] LABS: Alanine Aminotransferase 42 U/L (0-33); Albumin Level 4.4 g/dL (3.5-5.2); Alkaline Phosphatase 79 U/L (35-105); Anion Gap 17.6 (5-19); Aspartate Amino Transferase 31 U/L (0-32); Blood Urea Nitrogen 14 mg/dL (6-20); Calcium 9.3 mg/dL (8.5-10.5); Carbon Dioxide 26 mmol/L (22-29); Chloride 106 mmol/L (98-107); Globulin 3.6 g/dL (1.3-4.6); Glomerular Filtration Rate 42.7 mL/min (90-130); Glucose 111 mg/dL (65-115); Lipase 8 U/L (13-60); Osmolality Calculated 303 mOsm/kg (285-295); Potassium 3.6 mmol/L (3.5-5.1); Sodium 146 mmol/L (136-145); Total Bilirubin 0.5 mg/dL (0.15-1.2)
--- NOTE | 2023-03-07 19:37 | ED_ITS ---
HPI - Abdominal Pain General: Chief Complaint: Abdominal Pain Stated Complaint: physician sent, abd pain Time Seen by Provider: 03/07/23 17:58 History of Present Illness: Patient presents to the ER with complaints of worsening abdominal pain. Patient's been having intermittent abdominal pain that moves and migrates throughout her abdomen for at least the last month. Patient had her gallbladder removed and was on antibiotics for 20 days after the surgery due to infection. Patient still having horrible abdominal pain she describes it as one-time sharp and stabbing like a kidney stone or another time pressure and cramping like a menstrual cramp. Patient states that is all off-and-on but is definitely worse when she eats. Patient takes oxycodone and tramadol. Patient has fibromyalgia. Patient took approximately 30 mg oxycodone before she arrived here today. Before she took this she is described the pain as a 10 out of 10 now she is currently describing it about a 3 out of 10. Review of Systems General: Reports: 10 or more systems reviewed and unremarkable except in HPI and below PFSH ED PFSH: Medical History Anxiety disorder Asthma, mild intermittent, well-controlled Encounter for long-term opiate analgesic use Encounter for tobacco use cessation counseling Fibromyalgia Hematuria Hypertension Hypothyroidism Hx allergy to all thyroid medication but has been through desensitization of levothyroxine. Major depressive disorder, recurrent, moderate Medication-induced movement disorder Mild intermittent asthma with acute exacerbation Opioid contract exists Post-traumatic stress disorder, chronic Psychiatric care Recurrent headache Seasonal allergies Sleep apnea Smoker Treatment-resistant depression Surgical History H/O thyroidectomy Family History Mother Cancer Family/Other Heart disease Social History Smoking and tobacco status: former smoker Alcohol intake: never Desire information about alcohol rehabilitation?: No Substance/Drug Use: never Marital status: / Current occupational status: disabled Female Reproductive History: Spontaneous abortions: No Physical Exam Const: COMMON NORMALS: no acute distress, average body habitus, patient oriented x3, no limitations, healthy appearing, alert and well nourished HENMT: COMMON NORMALS: normocephalic, atraumatic, hearing grossly normal bilaterally, external ears normal, Normal external nose present and moist oral mucous membranes HEAD & SCALP: normocephalic and atraumatic NOSE: Normal external nose present EXTERNAL EAR: Yes external ears normal Neck/C-Spine: COMMON NORMALS: full ROM, no lymphadenopathy, supple, no meningeal signs, no JVD and Thyroid normal THYROID: Thyroid normal Chest: COMMONS NORMALS: normal inspection of the chest and normal palpation of entire chest wall Resp: COMMON NORMALS: normal respiratory effort, No retractions, No use of accessory muscles and clear to auscultation bilaterally AUSCULTATION: clear to auscultation bilaterally Cardio: COMMON NORMALS: no JVD, regular rate, regular rhythm, S1 normal heart sound present, S2 normal heart sound present, No gallops present (Cardio), No clicks present (Cardio), No murmurs present (Cardio) and No rub (Cardio) RATE: regular rate RHYTHM: regular rhythm HEART SOUNDS: S1 normal heart so und present and S2 normal heart sound present GI: COMMON NORMALS: Normal to inspection, nondistended, normoactive bowel sounds present, Soft to palpation, No hepatosplenomegaly present and no masses; negative for non-tender (Mildly tender throughout) PALPATION: Yes Soft to palpation and Yes No hepatosplenomegaly present : COMMON NORMALS: Yes no CVA tenderness BLADDER/KIDNEY EXAM: Yes no CVA tenderness Back/Pelvis: COMMON NORMALS: no CVA tenderness Neuro: COMMON NORMALS: patient oriented x3 SENSORIUM/ORIENTATION: Yes alert MENINGEAL SIGNS: Yes no meningeal signs Course Vital Signs: Vital signs: Vital Signs Temperature 97.6 F 03/07/23 17:49 Pulse Rate 80 03/07/23 20:37 Respiratory Rate 18 03/07/23 20:37 Blood Pressure 106/71 03/07/23 20:37 Pulse Oximetry 97 03/07/23 20:37 Oxygen Delivery Me thod Room Air 03/07/23 20:37 MDM - Abdominal Pain Medical Decision Making Presents to the ER with complaints of abdominal pain intermittent in nature with chronicity over the last 30 days. Patient had lab work which was essentially unremarkable. And had a abdominal CT scan with contrast that was unremarkable except for possible ovarian cyst. Patient is feeling much better patient is ready to go home. Patient be discharged home to her family practice physician who could do further evaluation and testing as they see fit. Differential Diagnosis Likely abdominal pain; Unlikely acute appendicitis, calculus of kidney, constipation, diverticulitis, endometriosis, gastroenteritis, pancreatitis or small bowel obstruction Medical Records I reviewed the patient's medical records. Lab Data I reviewed the patient's lab results. 03/07/23 18:29 03/07/23 18: Labs/Radiology: Laboratory Results WBC 10.5 10^3/uL (4.0-10.0) H 03/07/23 18: RBC 5.13 10^6/uL (4.1-5.3) 03/07/23 18: Hgb 15.7 g/dL (11.5-15.3) H 03/07/23 18: Hct 48.7 % (37.0-47.0) H 03/07/23 18: MCV 94.9 fl (81-99) 03/07/23 18: MCH 30.6 pg (28.0-34.0) 03/07/23 18: MCHC 32.2 g/dL (30.0-36.0) 03/07/23 18: RDW 12.9 % (12.1-15.1) 03/07/23 18: Plt Count 231 10^3/cmm (130-400) 03/07/23 18: MPV 12.4 fL (7.4-10.4) H 03/07/23 18: Neut % (Auto) 68.2 % 03/07/23 18: Lymph % (Auto) 23.6 % 03/07/23 18: [place] % (Auto) 5.8 % 03/07/23 18: Eos % (Auto) 1.3 % 03/07/23 18: Baso % (Auto) 0.7 % 03/07/23: Neut # (Auto) 7.12 10^3/uL (1.8-7.7) 03/07/23 18: Lymph # (Auto) 2.5 10^3/uL (0.8-4.8) 03/07/23 18: [place] # (Auto) 0.6 10^3/uL (0.2-0.9) 03/07/23 18: Eos # (Auto) 0.1 10^3/uL (0.0-0.8) 03/07/23 18: Baso # (Auto) 0.1 10^3/uL (0.0-0.1) 03/07/23 18: Nucleated RBC % (auto) 0 % 03/07/23 18: Nucleated RBCs # 0.0 /100WBC 03/07/23 18: Sodium 146 mmol/L (136-145) H 03/07/23 18:29 Potassium 3.6 mmol/L (3.5-5.1) 03/07/23 18: Chloride 106 mmol/L (98-107) 03/07/23 18: Carbon Dioxide 26 mmol/L (22-29) 03/07/23 18: Anion Gap 17.6 (5-19) 03/07/23 18: BUN 14 mg/dL (6-20) 03/07/23 18: Creatinine 1.3 mg/dL (0.5-0.9) H 03/07/23 18: GFR Calculation 42.7 mL/min (90-130) L 03/07/23 18: Glucose 111 mg/dL (65-115) 03/07/23 18: Calculated Osmolality 303 mOsm/kg (285-295) H 03/07/23 18: Calcium 9.3 mg/dL (8.5-10.5) 03/07/23 18: Total Bilirubin 0.5 mg/dL (0.15-1.2) 03/07/23 18: AST 31 U/L (0-32) 03/07/23 18: ALT 42 U/L (0-33) H 03/07/23 18:29 Alkaline Phosphatase 79 U/L (35-105) 03/07/23 18: Total Protein 8.0 g/dL (6.6-8.7) 03/07/23 18: Albumin 4.4 g/dL (3.5-5.2) 03/07/23 18: Globulin 3.6 g/dL (1.3-4.6) 03/07/23 18: Lipase 8 U/L (13-60) L 03/07/23 18:29 Urine Color Dark yellow (Yellow) 03/07/23 19:00 Urine Appearance Cloudy (CLEAR) A 03/07/23 19:00 Urine pH 5 (5-7) 03/07/23 19:00 Ur Specific [place] 1.025 (1.005-1.030) 03/07/23 19:00 Urine Protein 1+ (Negative) H 03/07/23 19:00 Urine Glucose (UA) Norm (Normal) 03/07/23 19:00 Urine Ketones 1+ (Negative) H 03/07/23 19:00 Urine Blood 2+ (Negative) H 03/07/23 19:00 Urine Nitrate Negative (Negative) 03/07/23 19:00 Urine Bilirubin 2+ (Negative) H 03/07/23 19:00 Urine Urobilinogen 4 mg/dL (Negative) H 03/07/23 19:00 Ur Leukocyte Esterase 1+ (Negative) H 03/07/23 19:00 Urine RBC 5-10 /hpf (0-2) H 03/07/23 19:00 Urine WBC 10-15 /hpf (0-5) H 03/07/23 19:00 Ur Squamous Epith Cells 5-10 /hpf (0-5) H 03/07/23 19:00 Amorphous Sediment 3+ /hpf 03/07/23 19:00 Urine Bacteria 1+ /hpf (NONE) H 03/07/23 19:00 Urine Mucus 3+ /hpf 03/07/23 19:00 Discharge Plan Discharge Patient Disposition: Home Clinical Impression: Abdominal pain Qualifiers: Abdominal location: unspecified location Qualified Code(s): R10.9 - Unspecified abdominal pain Condition: Stable Prescriptions: No Action tramadol 50 mg tablet 100 mg PO Q6H PRN (Reason: pain) hydroxyzine HCl 25 mg tablet 25 mg PO TID PRN (Reason: itching or anxiety) Qty: 90 0RF omeprazole 40 mg capsule,delayed release(DR/EC) 40 mg PO DAILY 90 Days Qty: 90 3RF levothyroxine [Euthyrox] 175 mcg tablet 175 mcg PO DAILY 90 Days Qty: 90 1RF ipratropium-albuterol 0.5 mg-3 mg(2.5 mg base)/3 mL solution for nebulization 3 ml inhalation Q4H PRN (Reason: shortness of breath or wheezing) Qty: 180 1RF Rx Instructions: until breathing returns to target peak flow/parameters gabapentin 800 mg tablet 800 mg PO TID 30 Days Qty: 90 5RF [place] 45-105 mg tablet,IR,delayed rel,biphasic 1 tab PO BID Qty: 60 0RF Rx Instructions: only 1 tab daily the first three days hydrocodone-acetaminophen 7.5-325 mg tablet 1 tab PO Q6H PRN duloxetine [Cymbalta] 60 mg capsule,delayed release(DR/EC) 60 mg PO DAILY Qty: 30 3RF ondansetron 4 mg tablet,disintegrating 4 mg PO Q8H PRN (Reason: nausea and vomiting) Qty: 30 2RF acetaminophen [Tylenol] 325 mg Capsule 650 mg PO QID PRN (Reason: Pain) potassium chloride 10 mEq capsule, extended release 10 meq PO BID Qty: 20 0RF Hold Instructions: Home Medication placed on hold at Doctor's office Discharge Orders: Discharge ED (Routine); Ordered 03/07/23 Ordered By: Boom Barrios Referrals: Corazon Cardona MD [Primary Care Provider] - 1 week Patient Instructions: Abdominal Pain (ED) Activity Restrictions/Additional Instructions: Please follow-up with your family practice physician in approximately 1 week as you may benefit from further evaluation and testing for your abdominal pain. Coding Level of Care Code ED Supervisor [employer] for Michelle Parikh
[2023-03-07 19:44] LABS: Specific Gravity, Urine 1.025 (1.005-1.030); Urine Appearance Cloudy (CLEAR); Urine Color Dark yellow (Yellow); pH Urine 5 (5-7)
[2023-03-07 19:45] LABS: Add Urine Microscopic? YES; Bilirubin Urine 2+ (Negative); Blood Urine 2+ (Negative); Glucose Urine UA Norm (Normal); Ketones Urine 1+ (Negative); Leukocyte Esterase Urine 1+ (Negative); Nitrate Urine Negative (Negative); Protein Urine 1+ (Negative); Urobilinogen Urine 4 mg/dL (Negative)
[2023-03-07 19:46] LABS: Amorphous Sediment Urine 3+ /hpf; Bacteria Urine 1+ /hpf; Mucus Urine 3+ /hpf
[2023-03-07 19:47] LABS: Add Urine Culture? No
[2023-03-07] MEDS: iohexol 350 mg/mL 500 mL Btl (per mL) IV (20:02)
[2023-03-07 20:37] VITALS: BP 106/71; PULSE 80; RESP 18; O2SAT 97
== END 2023-03-07 22:10 | disposition home or self-care (01) ==
PROVIDERS: Emergency Provider Emergency Medicine; PCP Family Medicine
DX: R10.9 Unspecified abdominal pain (principal)
CPT/HCPCS: 74177; 80053; 81001; 83690; 85025; 99285; Q9967

== ENCOUNTER 2023-09-20 15:41 | Inpatient (IN) | payer MEDICARE, OTHER, MEDICAID, SELFPAY ==
[2021-05-20 15:19] VITALS: BP 173/106; BMI 45.3
[2023-09-20 15:51] VITALS: BP 154/97; PULSE 135; RESP 16; TEMP 36.7; O2SAT 98; BMI 48.0
--- NOTE | 2023-09-20 16:05 | PC.NURSE ---
pt is denying name and on chart, but able to accurately identify her contact information and address on chart. pt picture on account matches pt description. pt unable to verify age to this nurse, pt states my brain is not working, I don't know if I know my age . pt states it is possible that her name is Charlee Anderson, but she is unsure .
--- NOTE | 2023-09-20 16:31 | W.ED.PSYCHS ---
HPI - Psych General: Chief Complaint: Psychiatric Symptoms Stated Complaint: 96 hold Time Seen by Provider: 09/20/23 15:43 Source: patient Mode of arrival: ambulatory Limitations: no limitations History of Present Illness: 53-year-old female is brought here on a 96-hour hold patient is quite paranoid she thinks that her children have been trying to poison her she is very paranoid here with acute psychosis she denies SI or HI patient been refusing to tell us her name he has not been cooperative she refuses blood draws. 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 Anxiety disorder Post-traumatic stress disorder, chronic Major depressive disorder, recurrent, moderate Mild intermittent asthma with acute exacerbation Surgical History H/O thyroidectomy Family History Mother Cancer Family/Other Heart disease Social History Smoking and tobacco/nicotine status: former use of tobacco/nicotine Alcohol intake: never Substance/Drug Use: never Marital status: / Current occupational status: disabled Female Reproductive History: Spontaneous abortions: No Physical Exam Const: COMMON NORMALS: no acute distress, patient oriented x3 and healthy appearing HENMT: COMMON NORMALS: normocephalic and atraumatic HEAD & SCALP: normocephalic and atraumatic Eye: COMMON NORMALS: Equal, round and reactive pupils present and EOMs intact bilaterally PUPIL: Yes Equal, round and reactive pupils present Neck/C-Spine: COMMON NORMALS: full ROM and supple Chest: COMMONS NORMALS: normal inspection of the chest Resp: COMMON NORMALS: normal respiratory effort, No retractions, No use of accessory muscles and clear to auscultation bilaterally AUSCULTATION: clear to auscultation bilaterally Cardio: COMMON NORMALS: regular rate, regular rhythm and No murmurs present (Cardio) RATE: regular rate RHYTHM: regular rhythm Extremity: COMMON NORMALS: normal to inspection and full ROM Neuro: COMMON NORMALS: patient oriented x3, moves all extremities and no focal motor deficits Psych: COMMON NORMALS: mental status grossly normal and Normal thought process present THOUGHT PROCESS: Normal thought process present and Illogical thought process present THOUGHT CONTENT: Yes delusions Skin: COMMON NORMALS: no rashes or lesions noted and no wounds GENERAL SKIN EXAM: no rashes or lesions noted Face to Face: Restrn/Seclusion Events leading up to initiation: Verbalizing threat to self or others Evaluation of patient's immediate situation: Alert and oriented Patient reaction since intervention applied: De-escalation/no displays of violent/destructive behavior Recent labs reviewed: Yes Patient's current medical/behavioral condition: No new concerns since last ROS Course Vital Signs: Vital signs: Vital Signs Temperature 98.1 F 09/20/23 15:51 Pulse Rate 90 09/20/23 18:38 Respiratory Rate 18 09/20/23 18:38 Blood Pressure 154/97 09/20/23 15:51 Pulse Oximetry 94 09/20/23 18:38 Oxygen Delivery Me thod Room Air 09/20/23 18:38 MDM - Psych Medical Decision Making Patient presents here with acute psychosis patient was placed on a 96-hour hold she believes that her children have been trying to poison her and kill her she is medically cleared I spoke to psychiatrist will admit. Medical Records I reviewed the patient's medical records. Lab Data I reviewed the patient's lab results. 09/20/23 17:00 09/20/23 17:00 Laboratory Results WBC 7.59 10^3/uL (3.29-11.43) 09/20/23 17:00 RBC 4.58 10^6/uL (3.85-5.65) 09/20/23 17:00 Hgb 13.80 g/dL (11.27-16.99) 09/20/23 17:00 Hct 41.3 % (36-47) 09/20/23 17:00 MCV 90.2 fl (85-98) 09/20/23 17:00 MCH 30.1 pg (27-33) 09/20/23 17:00 MCHC 33.4 g/dL (30-55) 09/20/23 17:00 RDW 12.1 % (12.1-15.1) 09/20/23 17:00 Plt Count 194 10^3/cmm (157-399) 09/20/23 17:00 MPV 12.2 fL (7.4-10.4) H 09/20/23 17:00 Neut % (Auto) 73.0 % 09/20/23 17:00 Lymph % (Auto) 20.7 % 09/20/23 17:00 [place] % (Auto) 4.6 % 09/20/23 17:00 Eos % (Auto) 0.8 % 09/20/23 17:00 Baso % (Auto) 0.5 % 09/20/23 17:00 Neut # (Auto) 5.54 10^3/uL (1.8-7.7) 09/20/23 17:00 Lymph # (Auto) 1.6 10^3/uL (0.8-4.8) 09/20/23 17:00 [place] # (Auto) 0.4 10^3/uL (0.2-0.9) 09/20/23 17:00 Eos # (Auto) 0.1 10^3/uL (0.0-0.8) 09/20/23 17:00 Baso # (Auto) 0.0 10^3/uL (0.0-0.1) 09/20/23 17:00 Nucleated RBC % (auto) 0 % 09/20/23 17:00 Nucleated RBCs # 0.0 /100WBC 09/20/23 17:00 Sodium 143 mmol/L (136-145) 09/20/23 17:00 Potassium 2.9 mmol/L (3.5-5.1) L 09/20/23 17:00 Chloride 110 mmol/L (98-107) H 09/20/23 17:00 Carbon Dioxide 19 mmol/L (22-29) L 09/20/23 17:00 Anion Gap 16.9 (5-19) 09/20/23 17:00 BUN 10 mg/dL (6-20) 09/20/23 17:00 Creatinine 0.9 mg/dL (0.5-0.9) 09/20/23 17:00 GFR Calculation 65.0 mL/min (90-130) L 09/20/23 17:00 Glucose 191 mg/dL (65-115) H 09/20/23 17:00 Calculated Osmolality 300 mOsm/kg (285-295) H 09/20/23 17:00 Calcium 8.7 mg/dL (8.5-10.5) 09/20/23 17:00 Total Bilirubin 0.3 mg/dL (0.15-1.2) 09/20/23 17:00 AST 15 U/L (0-32) 09/20/23 17:00 ALT 14 U/L (0-33) 09/20/23 17:00 Alkaline Phosphatase 85 U/L (35-105) 09/20/23 17:00 Total Protein 7.1 g/dL (6.6-8.7) 09/20/23 17:00 Albumin 3.8 g/dL (3.5-5.2) 09/20/23 17:00 Globulin 3.3 g/dL (1.3-4.6) 09/20/23 17:00 Salicylates < 0.3 mg/dL (3-10) L 09/20/23 17:00 Acetaminophen < 5.0 ug/mL (10-30) L 09/20/23 17:00 Ethyl Alcohol < 10 mg/dL (0-10) 09/20/23 17:00 No radiology studies performed this visit Discharge Plan Discharge Admit Provider: Jim Cardona Condition: Stable Coding Level of Care Code ED Automatic Seamer for Michelle Parikh
[2023-09-20] MEDS: ketamine 100 mg/mL Inj 5 mL 450 MG IM (16:39)
[2023-09-20 17:15] LABS: Basophils % 0.5 %; Eosinophils # 0.1 10^3/uL (0.0-0.8); Eosinophils % 0.8 %; Hematocrit 41.3 % (36-47); Lymphocytes # 1.6 10^3/uL (0.8-4.8); Lymphocytes % 20.7 %; Mean Corpuscular HGB Conc 33.4 g/dL (30-55); Mean Corpuscular Hemoglobin 30.1 pg (27-33); Mean Corpuscular Volume 90.2 fl (85-98); Mean Platelet Volume 12.2 fL (7.4-10.4); Monocytes # 0.4 10^3/uL (0.2-0.9); Monocytes % 4.6 %; Neutrophils # 5.54 10^3/uL (1.8-7.7); Nucleated Red Blood Cells % 0 %; Platelet Count 194 10^3/cmm (157-399); Red Blood Count 4.58 10^6/uL (3.85-5.65); Red Cell Distribution Width 12.1 % (12.1-15.1); White Blood Count 7.59 10^3/uL (3.29-11.43)
--- NOTE | 2023-09-20 17:23 | PC.NURSE ---
Attempted to read 96 hour hold rights to patient. Patient stated her name is not Charlee Anderson that is Ariana Guerra. Patient states she wants a Shearing Machine Operator and this is not right, she has rights and we are taking them from her. Patient is not being cooperative at this time and refusing everyting at this time. She stated She will stay here and do her time, but we can not touch her or do anything with her. Ingrid RN, Willow RN, and Security present at bedside.
[2023-09-20 17:25] VITALS: PULSE 108; RESP 18; O2SAT 92
--- NOTE | 2023-09-20 17:28 | PC.NURSE ---
Soaping Machine Back Tender and security informed pt of 96 hour hold and pt refusing to have blood work/urine collected, belongings removed, and change into scrubs. attempted to have 1:1 conversation with patient explaining situation and policy, pt refused again. Security, ED nursing staff, ED provider, and Soaping Machine Back Tender attempted multiple times to verbally calm down patient. pt still uncooperative at this time. ED staff, security, tank house operator helper administered 450mg Ketamine @1639. pt placed on playground monitor, changed into paper scrubs, and belongings removed and placed outside room 9. 1:1 sitter outside room 9. (see belongings note and MAR)
[2023-09-20 17:31] LABS: Alanine Aminotransferase 14 U/L (0-33); Albumin Level 3.8 g/dL (3.5-5.2); Alkaline Phosphatase 85 U/L (35-105); Anion Gap 16.9 (5-19); Aspartate Amino Transferase 15 U/L (0-32); Blood Urea Nitrogen 10 mg/dL (6-20); Calcium 8.7 mg/dL (8.5-10.5); Carbon Dioxide 19 mmol/L (22-29); Chloride 110 mmol/L (98-107); Creatinine Clr Calc Pharmacy 93.2364; Globulin 3.3 g/dL (1.3-4.6); Glucose 191 mg/dL (65-115); Osmolality Calculated 300 mOsm/kg (285-295); Sodium 143 mmol/L (136-145); Total Bilirubin 0.3 mg/dL (0.15-1.2); Total Protein 7.1 g/dL (6.6-8.7)
[2023-09-20 17:32] LABS: Acetaminophen < 5.0 ug/mL (10-30); Alcohol Level < 10 mg/dL (0-10); Salicylate < 0.3 mg/dL (3-10)
[2023-09-20 17:33] LABS: Potassium 2.9 mmol/L (3.5-5.1)
--- NOTE | 2023-09-20 18:37 | PC.NURSE ---
pt informed that potassium level is low, pt refused potassium PO meds. pt informed of need for urine sample, pt refused to give urine. ED provider notified
[2023-09-20 18:38] VITALS: PULSE 90; RESP 18; O2SAT 94
[2023-09-20 19:52] VITALS: BP 152/65; PULSE 113; RESP 20; TEMP 36.8; O2SAT 98
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
[2023-09-20 20:44] LABS: Cocaine Screen Urine Negative (Negative); THC Screen Urine Negative (Negative)
[2023-09-20 20:45] LABS: Amphetamines Screen Urine Negative (Negative); Barbiturates Screen Urine Negative (Negative); Benzodiazepines Screen Urine Negative (Negative); Opiate Screen Urine Negative (Negative); PCP Screen Urine Negative (Negative)
[2023-09-21 06:00] VITALS: BP 140/79; PULSE 111; RESP 18; TEMP 36.5; O2SAT 97
--- NOTE | 2023-09-21 10:21 | PC.NURSE ---
attempted to giselle pt family 1) brendon pedraza [phone] and 2) tiara -[phone] with pt permission. both phone calls unable to leave voice mail do to mail box has not been set up at this time.
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
[2023-09-21 14:00] VITALS: BP 114/77; PULSE 86; RESP 14; TEMP 36.6; O2SAT 98
[2023-09-21] MEDS: levothyroxine 175 mcg Tablet PO (15:16)
[2023-09-21 20:23] VITALS: BP 148/74; PULSE 128; RESP 20; TEMP 36.8; O2SAT 99
[2023-09-22 06:00] VITALS: BP 93/55; PULSE 103; RESP 14; TEMP 36.8; O2SAT 98
[2023-09-22] MEDS: levothyroxine 175 mcg Tablet PO (08:40)
[2023-09-22 14:00] VITALS: BP 125/80; PULSE 93; RESP 12; O2SAT 98
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
[2023-09-22 20:37] VITALS: BP 116/77; PULSE 82; RESP 16; O2SAT 98
[2023-09-23 06:00] VITALS: BP 115/73; PULSE 84; RESP 17; TEMP 36.8; O2SAT 99
[2023-09-23] MEDS: levothyroxine 175 mcg Tablet PO (08:24)
[2023-09-23 14:00] VITALS: BP 122/83; PULSE 106; RESP 16; TEMP 36.6; O2SAT 97
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
[2023-09-23 20:20] VITALS: BP 142/100; PULSE 102; RESP 18; TEMP 36.8; O2SAT 99
[2023-09-24 06:00] VITALS: BP 122/73; PULSE 67; RESP 16; O2SAT 97
[2023-09-24] MEDS: levothyroxine 175 mcg Tablet PO (08:07)
--- NOTE | 2023-09-24 08:10 | PC.NURSE ---
pt refusing ablifiy states she is to happy and does not need it. denies si/hi or avh pt replies when asked by this subway guard does she know why she is here pt states no not really that she was hurt but did not hate tiara boyfriend but she does not remember why. attempts to explain to patient that the medication was prescribed by in order to help her pt states no I do not need medication. I am fine see I love my daughters you seen when they came to visit all i did was love on them.
[2023-09-24 14:00] VITALS: BP 140/73; PULSE 62; RESP 16; TEMP 36.9; O2SAT 98
--- NOTE | 2023-09-24 15:36 | W.PM.NPUPNS ---
Subjective NPU Subjective: 53-year-old white female admitted with psychosis with a past history of PTSD and depression. Patient reported no problems with her mood. She had stated that she had a history of making poor decisions by trusting others and stated that she had forgiven both Filiberto and Vik if either of them had been involved in misusing her credit card or her bank account. She had reported that her energy was good. She reported no problems with constant duration. She had reported that she was feeling bored here. She had stated that she had felt that everything was fine. She had refused Abilify at this time. Mental Status Exam MSE Comments: The patient was again lying in bed but was alert and oriented x3, She had good eye contact. Her gait was not tested. Her hygiene appeared adequate. There was no evidence of any abnormal involuntary motor movements tics or tremors appreciated. Her speech was monotone in quality with normal volume and rate with normal spontaneous speech. Her mood was described as better Her affect was brighter today. Her thought process was linear and logical. Her thought content showed evidence of mild paranoia but no clear ideas of reference. She denied any auditory or visual hallucinations and did not appear to be responding to internal stimuli. Her insight is improving. Her judgment was fair. Her impulse control appeared limited. She was alert and oriented to person, place, time,and situation. Her recent and remote memory appeared grossly intact. Vitals/I&O/Wt Last Vital Signs Temp 98.4 F 09/24/23 14:00 Pulse 62 09/24/23 14:00 Resp 16 09/24/23 14:00 BP 140/73 09/24/23 14:00 Pulse Ox 98 09/24/23 14:00 O2 Del Method Room Air 09/24/23 14:00 Weight last 48 hrs Weight 109.497 kg Data NPU 09/20/23 17:00 09/20/23 17:00 A&P Assessment and plan (1) Psychosis: (2) Post-traumatic stress disorder, chronic: (3) Major depressive disorder, recurrent, moderate: (4) Anxiety disorder: Qualifiers: Anxiety disorder type: other anxiety disorder Qualified Code(s): F41.8 - Other specified anxiety disorders Plan 53-year-old female with previous history of depression and PTSD who presents with paranoia currently on a 96-hour hold with the patient having stopped all of her medications for the past 6 months. Patient would likely benefit from continued inpatient hospitalization at this time. ?1. Encourage individual, group and milieu therapy. ?2.Recommend sober living treatment at the highest level of care to which the patient is willing to commit. 3.Continue q-15 minute checks for safety.? 4. Will attempt to gather collateral information. Patient refusing abilify , will discontinue. 5. Recommend [facility] evaluation of living skills by OT completed today. Involuntary Hold Information 96 Hour Hold: 96 Hour Involuntary Admission: Yes 96 Hour Hold Ending Date: 09/26/23 96 Hour Hold Ending Time: 16:00 Attestations NPU Medical Necessity Statement*: Inpatient hospitalization is medically necessary and deemed to ?be ?the clinically appropriate intervention ?at this time.? We will monitor/initiate medications and make changes as indicated.? The patient?s likely length of stay may be complicated by extended stay involuntarily. Coding Level of Care Code Acute Code for [facility] Fwd Diagnoses Psychosis F29 Post-traumatic stress disorder, chronic F43.12 Major depressive disorder, recurrent, moderate F33.1 Other specified anxiety disorders F41.8 Anxiety disorder type: other anxiety disorder
[2023-09-24 20:18] VITALS: BP 100/69; PULSE 102; RESP 18; TEMP 36.7; O2SAT 98
[2023-09-25 06:00] VITALS: BP 100/67; PULSE 98; RESP 16; TEMP 36.7; O2SAT 100
[2023-09-25] MEDS: levothyroxine 175 mcg Tablet PO (08:39)
[2023-09-25 14:00] VITALS: BP 114/75; PULSE 85; RESP 16; TEMP 36.5; O2SAT 98
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
[2023-09-25 20:59] VITALS: BP 130/78; PULSE 138; RESP 20; TEMP 36.9; O2SAT 99
[2023-09-26 06:00] VITALS: BP 112/74; PULSE 88; RESP 16; O2SAT 98
[2023-09-26] MEDS: levothyroxine 175 mcg Tablet PO (08:36)
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
[2023-09-26 11:41] VITALS: BP 112/74; PULSE 88; RESP 16; O2SAT 98
--- NOTE | 2023-09-26 12:26 | DCPLANNER ---
IMM was given to pt and copy placed in her file.
== END 2023-09-26 14:31 | disposition home or self-care (01) | DRG 885 ==
LOC: ER 16:41 → NP 18:48
PROVIDERS: Admitting Provider Psychiatry & Neurology Psychiatry; Emergency Provider Emergency Medicine; PCP Family Medicine; Visit Provider Psychiatry & Neurology Psychiatry
DX: F29 Unspecified psychosis not due to a substance or known physiological condition (principal); F33.1 Major depressive disorder, recurrent, moderate; F43.12 Post-traumatic stress disorder, chronic; F41.8 Other specified anxiety disorders; E89.0 Postprocedural hypothyroidism
CPT/HCPCS: 80053; 80306; 80307; 85025; 97150; 97165; 97167; 99285; J3490

== ENCOUNTER → 2024-10-08 10:56 | Outpatient (BNVA) | payer MEDICARE, OTHER, SELFPAY ==
[2021-05-20 15:19] VITALS: BP 173/106; BMI 45.3
== END ==
PROVIDERS: PCP Family Medicine; Visit Provider Family Medicine
DX: E03.9 Hypothyroidism, unspecified (principal); K76.0 Fatty (change of) liver, not elsewhere classified; R73.03 Prediabetes
CPT/HCPCS: 80053; 80061; 83036; 84439; 84443; 84481